=== PATIENT | female | born 1930 | race Caucasian/White ===

== ENCOUNTER 2018-08-23 10:08 | Inpatient (IN) | payer MEDICARE ==
[2018-08-23] MEDS ORDERED: SODIUM CHLORIDE 0.9% 1,000 ML IV ONE (10:26)
--- NOTE | 2018-08-23 10:46 | ED ---
General Adult HPI - General Chief complaint: Fall Stated complaint: fall Source: patient, EMS Mode of arrival: EMS Limitations: altered mental status, physical limitation - History of Present Illness Initial comments: Dictation was produced using [employer] dictation software. please excuse any grammatical, word or spelling errors. Chief Complaint: 87-year-old female presents after being found down. History of Present Illness: Patient is a 87-year-old female brought in by EMS for being found down. Coronary EMS patient was found at home in the family room. She was covered in urine and feces. Patient reports that she fell last night. She states she could not get up because she felt significantly weak. Patient complains of back pain. She has no other complaints at this time. Patient is unsure if she lost consciousness. The ROS documented in this emergency department record has been reviewed and confirmed by me. Those systems with pertinent positive or negative responses have been documented in the HPI. All other systems are other negative and/or noncontributory. - Related Data Home Medications Medication Instructions Recorded Confirmed Acetaminophen with Codeine 1 tab PO QID PRN 08/23/18 08/23/18 [Tylenol w/codeine #4] Cholestyramine (with Sugar) 4 gm PO 5XD 08/23/18 08/23/18 [Cholestyramine Packet] Diphenoxylate HCl/Atropine 2 tab PO Q6H PRN 08/23/18 08/23/18 [Lomotil 2.5-0.025 mg Tablet] Ergocalciferol (Vitamin D2) 50,000 unit PO Q7D 08/23/18 08/23/18 [Vitamin D2] Levothyroxine Sodium [Synthroid] 175 mcg PO DAILY 08/23/18 08/23/18 Losartan Potassium [Cozaar] 12.5 mg PO DAILY 08/23/18 08/23/18 Menthol-Zinc Oxide Oint 1 applic TOPICAL DAILY PRN 08/23/18 08/23/18 [Calmoseptine Oint] Nystatin 100,000 Unit/gm Powd 1 applic TOPICAL BID 08/23/18 08/23/18 [Mycostatin Powder] SILVER sulfADIAZINE CREAM 1 applic TOPICAL BID 08/23/18 08/23/18 [Silvadene Cream] Allergies Allergy/AdvReac Type Severity Reaction Status Date / Time acetaminophen [From Vicodin] AdvReac Unknown Verified 08/23/18 11:08 hydrocodone [From Vicodin] AdvReac Unknown Verified 08/23/18 11:08 Review of Systems ROS Statement: Those systems with pertinent positive or pertinent negative responses have been documented in the HPI. ROS Other: All systems not noted in ROS Statement are negative. Past Medical History History of Any Multi-Drug Resistant Organisms: None Reported Past Psychological History: No Psychological Hx Reported Smoking Status: Never smoker Past Alcohol Use History: None Reported Past Drug Use History: None Reported General Exam - General Exam Comments Initial Comments: PHYSICAL EXAM: General Impression: Alert and oriented x3, not in acute distress HEENT: Normocephalic atraumatic, extra-ocular movements intact, pupils equal and reactive to light bilaterally, mucous membranes moist. Cardiovascular: Heart regular rate and rhythm, S1&S2 audible, no murmurs, rubs or gallops Chest: Lungs clear to auscultation bilaterally, no rhonchi, no wheeze, no rales Abdomen: Bowel sounds present, abdomen soft, non-tender, non-distended, no organomegaly Musculoskeletal: Pulses present and equal in all extremities, no peripheral edema, back pain reproduced with movement of the lower extremities Motor: Power 5/5 bilaterally, no focal deficits noted Neurological: CN II-XII grossly intact, no focal motor or sensory deficits noted Skin: Intact with no visualized rashes Psych: Normal affect and mood Limitations: altered mental status, physical limitation Course Vital Signs 08/23/18 08/23/18 08/23/18 10:22 10:24 10:30 Temperature 98.6 F Pulse Rate 82 Respiratory 18 Rate Blood Pressure 146/57 146/57 O2 Sat by Pulse 99 100 100 Oximetry 08/23/18 08/23/18 08/23/18 11:00 11:30 12:00 Temperature Pulse Rate Respiratory Rate Blood Pressure 132/53 115/44 O2 Sat by Pulse 99 97 Oximetry 08/23/18 08/23/18 08/23/18 13:30 14:00 14:30 Temperature Pulse Rate Respiratory Rate Blood Pressure 125/53 124/52 125/51 O2 Sat by Pulse 100 100 100 Oximetry 08/23/18 15:00 Temperature Pulse Rate 74 Respiratory 16 Rate Blood Pressure 136/58 O2 Sat by Pulse 99 Oximetry Medical Decision Making - Medical Decision Making ED course: 87 year old female found down at home after fall. As upon arrival are within acceptable limits.Return evaluation obtained. CBC unremarkable. Coag panel unremarkable. Blood gas shows acidosis of 77.21 with a bicarb of 18. Metabolic panel shows carbon dioxide of 18, gap of 8. Mild elevation and renal markers. No lactic acidosis. Consistent with non-gap acidosis. Patient denies any vomiting or diarrhea. Thoracic and lumbar spine CT was obtained showing. Complete compression of T12 and L1 of indeterminate age. He is also some posterior wall displacement obtained 3 and 4 mm the spinal canal. Mild disc bulging of the lumbar spine and grade 1 spondylolisthesis. More history was obtained from family. Patient does not have any history of compression fractures. Believe that findings seen on CT represent acute compression fracture. Head and neck CT shows no acute issues. Chest x-ray is unremarkable. Discussed patient case with Elizabeth from orthopedics who is amenable for patient being kept here in our hospital with Dr. Benitez or orthopedic spine surgeon on consult. Dr. Paulino is also agreeable. EKG interpretation: Ventricular rate 80, normal sinus rhythm,. Interval 126, QRS 102, QTc 442. No WA prolongation, no QTC prolongation, no ST or T-wave changes noted. Overall, this EKG is unremarkable - Lab Data Result diagrams: 08/23/18 11:07 08/23/18 11:07 Lab Results 08/23/18 08/23/18 08/23/18 Range/Units 11:07 11:07 11:07 WBC (3.8-10.6) k/uL RBC (3.80-5.40) m/uL Hgb (11.4-16.0) gm/dL Hct (34.0-46.0) % MCV (80.0-100.0) fL MCH (25.0-35.0) pg MCHC (31.0-37.0) g/dL RDW (11.5-15.5) % Plt Count (150-450) k/uL Neutrophils % % Lymphocytes % % Monocytes % % Eosinophils % % Basophils % % Neutrophils # (1.3-7.7) k/uL Lymphocytes # (1.0-4.8) k/uL Monocytes # (0-1.0) k/uL Eosinophils # (0-0.7) k/uL Basophils # (0-0.2) k/uL Hypochromasia PT (9.0-12.0) sec INR (<1.2) APTT (22.0-30.0) sec VBG pH 7.21 L (7.31-7.41) VBG pCO2 47 (37-51) mmHg VBG HCO3 18 L (24-28) mmol/L Sodium (137-145) mmol/L Potassium (3.5-5.1) mmol/L Chloride (98-107) mmol/L Carbon Dioxide (22-30) mmol/L Anion Gap mmol/L BUN (7-17) mg/dL Creatinine (0.52-1.04) mg/dL Est GFR (CKD-EPI)AfAm (>60 ml/min/1.73 sqM) Est GFR (CKD-EPI)NonAf (>60 ml/min/1.73 sqM) Glucose (74-99) mg/dL Plasma Lactic Acid Lc 1.6 (0.7-2.0) mmol/L Calcium (8.4-10.2) mg/dL Total Bilirubin (0.2-1.3) mg/dL AST (14-36) U/L ALT (9-52) U/L Alkaline Phosphatase (38-126) U/L Ammonia 12 (<30) umol/L Creatine Kinase (30-135) U/L Total Creatine Kinase 27 L (30-135) U/L CK-MB (CK-2) 0.6 (0.0-2.4) ng/mL CK-MB (CK-2) Rel Index 2.2 Troponin I <0.012 (0.000-0.034) ng/mL Total Protein (6.3-8.2) g/dL Albumin (3.5-5.0) g/dL Urine Color Urine Appearance (Clear) Urine pH (5.0-8.0) Ur Specific [place] (1.001-1.035) Urine Protein (Negative) Urine Glucose (UA) (Negative) Urine Ketones (Negative) Urine Blood (Negative) Urine Nitrite (Negative) Urine Bilirubin (Negative) Urine Urobilinogen (<2.0) mg/dL Ur Leukocyte Esterase (Negative) Urine RBC (0-5) /hpf Urine WBC (0-5) /hpf Amorphous Sediment (None) /hpf Urine Bacteria (None) /hpf Urine Mucus (None) /hpf Urine Opiates Screen (NotDetected) Ur Oxycodone Screen (NotDetected) Urine Methadone Screen (NotDetected) Ur Propoxyphene Screen (NotDetected) Ur Barbiturates Screen (NotDetected) U Tricyclic Antidepress (NotDetected) Ur Phencyclidine Scrn (NotDetected) Ur Amphetamines Screen (NotDetected) U Methamphetamines Scrn (NotDetected) U Benzodiazepines Scrn (NotDetected) Urine Cocaine Screen (NotDetected) U Marijuana (THC) Screen (NotDetected) 08/23/18 08/23/18 08/23/18 Range/Units 11:07 11:07 11:07 WBC 8.3 (3.8-10.6) k/uL RBC 3.80 (3.80-5.40) m/uL Hgb 11.3 L (11.4-16.0) gm/dL Hct 35.7 (34.0-46.0) % MCV 94.2 (80.0-100.0) fL MCH 29.8 (25.0-35.0) pg MCHC 31.7 (31.0-37.0) g/dL RDW 14.5 (11.5-15.5) % Plt Count 210 (150-450) k/uL Neutrophils % 77 % Lymphocytes % 15 % Monocytes % 5 % Eosinophils % 1 % Basophils % 1 % Neutrophils # 6.4 (1.3-7.7) k/uL Lymphocytes # 1.3 (1.0-4.8) k/uL Monocytes # 0.4 (0-1.0) k/uL Eosinophils # 0.1 (0-0.7) k/uL Basophils # 0.1 (0-0.2) k/uL Hypochromasia Slight PT (9.0-12.0) sec INR (<1.2) APTT (22.0-30.0) sec VBG pH (7.31-7.41) VBG pCO2 (37-51) mmHg VBG HCO3 (24-28) mmol/L Sodium 141 (137-145) mmol/L Potassium 4.7 (3.5-5.1) mmol/L Chloride 115 H (98-107) mmol/L Carbon Dioxide 18 L (22-30) mmol/L Anion Gap 8 mmol/L BUN 23 H (7-17) mg/dL Creatinine 1.81 H (0.52-1.04) mg/dL Est GFR (CKD-EPI)AfAm 29 (>60 ml/min/1.73 sqM) Est GFR (CKD-EPI)NonAf 25 (>60 ml/min/1.73 sqM) Glucose 111 H (74-99) mg/dL Plasma Lactic Acid Lc (0.7-2.0) mmol/L Calcium 8.9 (8.4-10.2) mg/dL Total Bilirubin 0.3 (0.2-1.3) mg/dL AST 39 H (14-36) U/L ALT 35 (9-52) U/L Alkaline Phosphatase 88 (38-126) U/L Ammonia (<30) umol/L Creatine Kinase 28 L (30-135) U/L Total Creatine Kinase (30-135) U/L CK-MB (CK-2) (0.0-2.4) ng/mL CK-MB (CK-2) Rel Index Troponin I (0.000-0.034) ng/mL Total Protein 7.9 (6.3-8.2) g/dL Albumin 3.7 (3.5-5.0) g/dL Urine Color Yellow Urine Appearance Clear (Clear) Urine pH 5.5 (5.0-8.0) Ur Specific [place] 1.013 (1.001-1.035) Urine Protein 1+ H (Negative) Urine Glucose (UA) Negative (Negative) Urine Ketones Negative (Negative) Urine Blood Negative (Negative) Urine Nitrite Negative (Negative) Urine Bilirubin Negative (Negative) Urine Urobilinogen <2.0 (<2.0) mg/dL Ur Leukocyte Esterase Negative (Negative) Urine RBC <1 (0-5) /hpf Urine WBC <1 (0-5) /hpf Amorphous Sediment Occasional H (None) /hpf Urine Bacteria Rare H (None) /hpf Urine Mucus Rare H (None) /hpf Urine Opiates Screen Detected H (NotDetected) Ur Oxycodone Screen Not Detected (NotDetected) Urine Methadone Screen Not Detected (NotDetected) Ur Propoxyphene Screen Not Detected (NotDetected) Ur Barbiturates Screen Not Detected (NotDetected) U Tricyclic Antidepress Not Detected (NotDetected) Ur Phencyclidine Scrn Not Detected (NotDetected) Ur Amphetamines Screen Not Detected (NotDetected) U Methamphetamines Scrn Not Detected (NotDetected) U Benzodiazepines Scrn Not Detected (NotDetected) Urine Cocaine Screen Not Detected (NotDetected) U Marijuana (THC) Screen Not Detected (NotDetected) 08/23/18 Range/Units 11:07 WBC (3.8-10.6) k/uL RBC (3.80-5.40) m/uL Hgb (11.4-16.0) gm/dL Hct (34.0-46.0) % MCV (80.0-100.0) fL MCH (25.0-35.0) pg MCHC (31.0-37.0) g/dL RDW (11.5-15.5) % Plt Count (150-450) k/uL Neutrophils % % Lymphocytes % % Monocytes % % Eosinophils % % Basophils % % Neutrophils # (1.3-7.7) k/uL Lymphocytes # (1.0-4.8) k/uL Monocytes # (0-1.0) k/uL Eosinophils # (0-0.7) k/uL Basophils # (0-0.2) k/uL Hypochromasia PT 12.7 H (9.0-12.0) sec INR 1.2 H (<1.2) APTT 24.8 (22.0-30.0) sec VBG pH (7.31-7.41) VBG pCO2 (37-51) mmHg VBG HCO3 (24-28) mmol/L Sodium (137-145) mmol/L Potassium (3.5-5.1) mmol/L Chloride (98-107) mmol/L Carbon Dioxide (22-30) mmol/L Anion Gap mmol/L BUN (7-17) mg/dL Creatinine (0.52-1.04) mg/dL Est GFR (CKD-EPI)AfAm (>60 ml/min/1.73 sqM) Est GFR (CKD-EPI)NonAf (>60 ml/min/1.73 sqM) Glucose (74-99) mg/dL Plasma Lactic Acid Lc (0.7-2.0) mmol/L Calcium (8.4-10.2) mg/dL Total Bilirubin (0.2-1.3) mg/dL AST (14-36) U/L ALT (9-52) U/L Alkaline Phosphatase (38-126) U/L Ammonia (<30) umol/L Creatine Kinase (30-135) U/L Total Creatine Kinase (30-135) U/L CK-MB (CK-2) (0.0-2.4) ng/mL CK-MB (CK-2) Rel Index Troponin I (0.000-0.034) ng/mL Total Protein (6.3-8.2) g/dL Albumin (3.5-5.0) g/dL Urine Color Urine Appearance (Clear) Urine pH (5.0-8.0) Ur Specific [place] (1.001-1.035) Urine Protein (Negative) Urine Glucose (UA) (Negative) Urine Ketones (Negative) Urine Blood (Negative) Urine Nitrite (Negative) Urine Bilirubin (Negative) Urine Urobilinogen (<2.0) mg/dL Ur Leukocyte Esterase (Negative) Urine RBC (0-5) /hpf Urine WBC (0-5) /hpf Amorphous Sediment (None) /hpf Urine Bacteria (None) /hpf Urine Mucus (None) /hpf Urine Opiates Screen (NotDetected) Ur Oxycodone Screen (NotDetected) Urine Methadone Screen (NotDetected) Ur Propoxyphene Screen (NotDetected) Ur Barbiturates Screen (NotDetected) U Tricyclic Antidepress (NotDetected) Ur Phencyclidine Scrn (NotDetected) Ur Amphetamines Screen (NotDetected) U Methamphetamines Scrn (NotDetected) U Benzodiazepines Scrn (NotDetected) Urine Cocaine Screen (NotDetected) U Marijuana (THC) Screen (NotDetected) Disposition Clinical Impression: Compression fracture Dis[facility]: [facility] Condition: Fair Referrals: Shelby Pascual DO [Primary Care Provider] - 1-2 days Decision Time: 15:29
[2018-08-23 11:40] LABS: Basophils # (A) 0.1 k/uL (0-0.2); Basophils % (A) 1 %; Eosinophils # (A) 0.1 k/uL (0-0.7); Eosinophils % (A) 1 %; HCT 35.7 % (34.0-46.0); HGB 11.3 gm/dL (11.4-16.0); Hypochromasia Slight; Lymphocytes # (A) 1.3 k/uL (1.0-4.8); Lymphocytes % (A) 15 %; MCH 29.8 pg (25.0-35.0); MCHC 31.7 g/dL (31.0-37.0); MCV 94.2 fL (80.0-100.0); Mean Platelet Volume 6.6; Monocytes # (A) 0.4 k/uL (0-1.0); Monocytes % (A) 5 %; Neutrophils # (A) 6.4 k/uL (1.3-7.7); Neutrophils % (A) 77 %; Platelet Count 210 k/uL (150-450); RDW 14.5 % (11.5-15.5); WBC 8.3 k/uL (3.8-10.6)
[2018-08-23 11:47] LABS: INR 1.2 (<1.2); Partial Thromboplastin Time 24.8 sec (22.0-30.0); Prothrombin Time 12.7 sec (9.0-12.0); VBG PH 7.21 (7.31-7.41)
[2018-08-23 11:48] LABS: Amorphous Sediment,Urine Occasional /hpf; Appearance,Urine Clear (Clear); Bacteria,Urine Rare /hpf; Bilirubin,Urine Negative (Negative); Blood,Urine Negative (Negative); Color,Urine Yellow; Glucose,Urine (UA) Negative (Negative); Ketones,Urine Negative (Negative); Leukocyte Esterase,Urine Negative (Negative); Mucus,Urine Rare /hpf; Nitrite,Urine Negative (Negative); PH, Urine 5.5 (5.0-8.0); Protein,Urine 1+ (Negative); RBC,Urine <1 /hpf (0-5); Specific Gravity,Urine 1.013 (1.001-1.035); Urobilinogen,Urine <2.0 mg/dL (<2.0); WBC,Urine <1 /hpf (0-5)
[2018-08-23 11:50] LABS: Lactic Acid, Venous 1.6 mmol/L (0.7-2.0)
[2018-08-23 11:51] LABS: Albumin 3.7 g/dL (3.5-5.0); Calcium 8.9 mg/dL (8.4-10.2); Potassium 4.7 mmol/L (3.5-5.1); Total Bilirubin 0.3 mg/dL (0.2-1.3); Total Protein 7.9 g/dL (6.3-8.2)
[2018-08-23 11:59] LABS: Amphetamine Screen,Urine Not Detected (NotDetected); Barbiturate Screen,Urine Not Detected (NotDetected); Benzodiazepines Screen,Urine Not Detected (NotDetected); Cocaine Screen,Urine Not Detected (NotDetected); Methadone Screen, Urine Not Detected (NotDetected); Opiate Screen,Urine Detected (NotDetected); Oxycodone Screen, Urine Not Detected (NotDetected); Phencyclidine Screen,Urine Not Detected (NotDetected); Tricyclic Antidepressant,Urine Not Detected (NotDetected); Urn Cannabinoid Scrn Not Detected (NotDetected)
[2018-08-23 12:10] LABS: Creatine Kinase 27 U/L (30-135)
--- NOTE | 2018-08-23 12:12 | CT ---
EXAMINATION TYPE: CT brain lópez daugherty DATE OF EXAM: 08/23/2018 COMPARISON: NONE HISTORY: Fall injury with headache and neck pain CT DLP: 1860.1 mGycm. Automated Exposure Control for Dose Reduction was Utilized. TECHNIQUE: CT scan of the head and cervical spine are performed without contrast. FINDINGS: There is no acute intracranial hemorrhage or midline shift identified. Ventricular and thomas lcal prominence is seen. Low-attenuation in deep and periventricular white matter is noted. The glob es are intact and the visualized sinuses are clear. The calvarium is intact. Hyperostosis frontalis i s seen. Cervical spine is visualized in its entirety from C1 through upper thoracic levels and demonstrates g rade 1 retrolisthesis of C4 on C5 without evidence of acute fracture or dislocation. Prevertebral so ft tissue appears within normal limits. The C1-C2 articulation is within normal limits on the metz l images. Vertebral body heights are maintained. Osseous structures are demineralized. There is moder ate disc space narrowing C4-C5 level. There is mild to moderate anterior spurring in the mid cervical spine. Spinal canal is grossly preserved. Review of axial images shows moderate to severe pleural/parenchymal biapical scarring with additional multifocal areas of scarlike opacity throughout the right upper lung. Correlate clinically somewhat small size thyroid gland is seen. Moderate calcified plaque right carotid bulb is present. Mild calci fied plaque left carotid bulb is noted. IMPRESSION: 1. There is no acute fracture or dislocation evident in the cervical spine. 2. No acute intracranial hemorrhage or midline shift is seen.
[2018-08-23 12:22] LABS: Creatine Kinase MB 0.6 ng/mL (0.0-2.4); Troponin I <0.012 ng/mL (0.000-0.034)
--- NOTE | 2018-08-23 12:22 | CT ---
EXAMINATION TYPE: CT thor lumbar spine wo con DATE OF EXAM: 08/23/2018 COMPARISON: CT abdomen pelvis 06/01/2010 HISTORY: Fall, back pain CT DLP: 1860.1 mGycm Automated exposure control for dose reduction was used. TECHNIQUE: Axial images 3 mm thick sections. Reconstructed images in the coronal and sagittal planes. FINDINGS: There is a grade 1 spondylolisthesis of L5 anterior on S1. Disc uncovering is present. Mild canal shayne rowing may be present. Facet hypertrophy is noted at this level. L4-5 has symmetrical disc bulging with moderate anterior thecal sac compression. Facet hypertrophy is present. No spinal canal stenosis is present. L3-4 has mild disc bulging with anterior thecal sac compression. No spinal canal stenosis is present. L2-3 has minimal disc bulging with anterior thecal sac contact. No spinal canal stenosis or neural fo raminal stenosis is present. There is a compression deformity of L1 with approximately 40% loss of anterior vertebral body height. Minimal posterior wall displacement is present estimated at 0.4 cm. AP spinal canal narrowing at 0.9 cm may be present. There is a mild superior endplate compression deformity at T12. Minimal central posterior wall displa cement medially present estimated at 0.3 cm. No AP spinal canal stenosis is present. Mild thecal sac compression is present. Remaining thoracic vertebral levels appear preserved. Disc heights appear preserved. IMPRESSION: 1. SUPERIOR ENDPLATE COMPRESSION DEFORMITIES T12 AND L1 OF INDETERMINATE AGE. THESE ARE INTERVAL FROM 2009. 2. MILD SUPERIOR POSTERIOR WALL DISPLACEMENT BETWEEN 3 AND 4 MM INTO THE SPINAL CANAL WITHOUT CORD CO NTACT OR SPINAL CANAL STENOSIS AT THE L 1 AND T12 LEVELS. 3. DISC BULGING PRESENT L3-4, L4-5, L5-S1. 4. 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
--- NOTE | 2018-08-23 13:29 | XR ---
EXAMINATION TYPE: XR chest 2V DATE OF EXAM: 08/23/2018 COMPARISON: CT thoracic spine today. HISTORY: Fall injury with chest pain. TECHNIQUE: Frontal and lateral views of the chest are obtained. FINDINGS: There is reticular interstitial changes most prominent in the right upper lobe but seen bi laterally. No pleural effusion or pneumothorax is seen bilaterally. The cardiac silhouette size is w ithin normal limits with ectatic and atherosclerotic aorta. The osseous structures are demineralize d. IMPRESSION: Right upper lung reticular interstitial changes favor multifocal chronic fibrosis, corre late with old outside x-ray would be beneficial to confirm.
[2018-08-23] MEDS ORDERED: NALOXONE 0.4 MG/ML 1 ML VIAL IV PRN (15:24)
--- NOTE | 2018-08-23 16:08 | P.HPIM ---
History of Present Illness H&P Date: 08/23/18 Chief Complaint: Fall with compression fracture This is a 87-year-old female patient of Dr. Pascual. Patient presented with complaints of fall. Patient states she was walking to her living room when she fell. Patient is supposed to be using walker which she was not at the time. Patient denies loss of consciousness. Patient states she's started to experience severe back pain. Per EMS report patient was draped in urine and feces upon arrival. Patient denies any recent illness or infection that could' ve precipitated the fall. Patient denies any burning with urination or recent cough or infection. Chest x-ray completed showing right upper lung reticular interstitial changes favor multifocal chronic fibrosis, correlate with old outside x-ray could be beneficial to confirm. CT of head and cervical spine completed showing no acute fracture or dislocation evident cervical spine. No acute intracranial hemorrhage or midline shift is seen. CT of thoracic lumbar spine without contrast completed showing superior endplate compression deformities T12 and L1 of indeterminate age. These are well-formed 2010. Mild superior posterior wall displacement between 3 and 4 mm into the spinal canal without cord contact spinal canal stenosis at the L1 and T12 levels. Disc bulging at L3 to 4, L4 to 5 and L5 to S1. Grade 1 spondylolisthesis of L5 anterior on S1 with disc uncovering. EKG completed showing normal sinus rhythm. Anterior infarct, age undetermined abnormal EKG. Patient states she does have a significant history of back surgeries including isidoro placement with Dr. Benitez. Dr. Benitez has been consulted for orthopedic surgery. Patient also reports a history of GI cancer. Exact characteristics unknown. Patient does state she follows with Dr. Bunn and receives monthly injections but has never received chemotherapy. Patient states she did undergo surgery for her cancer issue. Patient denies any significant cardiac or pulmonary history. UA and urine culture ordered. At this time patient denies chest pain or shortness of breath. Patient denies any nausea vomiting or diarrhea. Patient denies any urinary burning or frequency. Patient is complaining of back discomfort. Family and patient requesting something to eat. Will order diet at this time Review of Systems please refer to HPI otherwise unremarkable Past Medical History History of Any Multi-Drug Resistant Organisms: None Reported Past Psychological History: No Psychological Hx Reported Smoking Status: Never smoker Past Alcohol Use History: None Reported Past Drug Use History: None Reported Medications and Allergies Home Medications Medication Instructions Recorded Confirmed Type Acetaminophen with Codeine 1 tab PO QID PRN 08/23/18 08/23/18 History [Tylenol w/codeine #4] Cholestyramine (with Sugar) 4 gm PO 5XD 08/23/18 08/23/18 History [Cholestyramine Packet] Diphenoxylate HCl/Atropine 2 tab PO Q6H PRN 08/23/18 08/23/18 History [Lomotil 2.5-0.025 mg Tablet] Ergocalciferol (Vitamin D2) 50,000 unit PO Q7D 08/23/18 08/23/18 History [Vitamin D2] Levothyroxine Sodium [Synthroid] 175 mcg PO DAILY 08/23/18 08/23/18 History Losartan Potassium [Cozaar] 12.5 mg PO DAILY 08/23/18 08/23/18 History Menthol-Zinc Oxide Oint 1 applic TOPICAL DAILY PRN 08/23/18 08/23/18 History [Calmoseptine Oint] Nystatin 100,000 Unit/gm Powd 1 applic TOPICAL BID 08/23/18 08/23/18 History [Mycostatin Powder] SILVER sulfADIAZINE CREAM 1 applic TOPICAL BID 08/23/18 08/23/18 History [Silvadene Cream] Allergies Allergy/AdvReac Type Severity Reaction Status Date / Time acetaminophen [From Vicodin] AdvReac Unknown Verified 08/23/18 11:08 hydrocodone [From Vicodin] AdvReac Unknown Verified 08/23/18 11:08 Physical Exam Vitals: Vital Signs Temp Pulse Resp BP Pulse Ox 08/23/18 15:00 74 16 136/58 99 08/23/18 14:30 125/51 100 08/23/18 14:00 124/52 100 08/23/18 13:30 125/53 100 08/23/18 12:00 97 08/23/18 11:30 115/44 08/23/18 11:00 132/53 99 08/23/18 10:30 146/57 100 08/23/18 10:24 98.6 F 82 18 146/57 100 08/23/18 10:22 99 Intake and Output 08/23/18 08/23/18 08/23/18 06:59 14:59 22:59 Other: Weight 63.503 kg Head normocephalic Neck supple Lungs clear to auscultation bilaterally no wheezing or crackles Heart regular rate and rhythm S1-S2, no rub or gallop Abdomen is soft nontender nondistended positive bowel sounds no hepatosplenomegaly Extremities no edema Neuro alert and orientated to 3 Results CBC & Chem 7: 08/23/18 11:07 08/23/18 11:07 Labs: Abnormal Lab Results - Last 24 Hours (Table) 08/23/18 08/23/18 08/23/18 Range/Units 11:07 11:07 11:07 Hgb 11.3 L (11.4-16.0) gm/dL PT (9.0-12.0) sec INR (<1.2) VBG pH 7.21 L (7.31-7.41) VBG HCO3 18 L (24-28) mmol/L Chloride (98-107) mmol/L Carbon Dioxide (22-30) mmol/L BUN (7-17) mg/dL Creatinine (0.52-1.04) mg/dL Glucose (74-99) mg/dL AST (14-36) U/L Creatine Kinase (30-135) U/L Total Creatine Kinase 27 L (30-135) U/L Urine Protein (Negative) Amorphous Sediment (None) /hpf Urine Bacteria (None) /hpf Urine Mucus (None) /hpf Urine Opiates Screen (NotDetected) 08/23/18 08/23/18 08/23/18 Range/Units 11:07 11:07 11:07 Hgb (11.4-16.0) gm/dL PT 12.7 H (9.0-12.0) sec INR 1.2 H (<1.2) VBG pH (7.31-7.41) VBG HCO3 (24-28) mmol/L Chloride 115 H (98-107) mmol/L Carbon Dioxide 18 L (22-30) mmol/L BUN 23 H (7-17) mg/dL Creatinine 1.81 H (0.52-1.04) mg/dL Glucose 111 H (74-99) mg/dL AST 39 H (14-36) U/L Creatine Kinase 28 L (30-135) U/L Total Creatine Kinase (30-135) U/L Urine Protein 1+ H (Negative) Amorphous Sediment Occasional H (None) /hpf Urine Bacteria Rare H (None) /hpf Urine Mucus Rare H (None) /hpf Urine Opiates Screen Detected H (NotDetected) Microbiology - Last 24 Hours (Table) 08/23/18 11:07 Urine Culture - Preliminary Urine,Catheterized Assessment and Plan Assessment: 1. Fall with compression fracture. CT of head and neck completed showing no acute fracture or dislocation evident cervical spine. No acute intracranial hemorrhage or midline shift is seen. Thoracic lumbar CT completed showing superior endplate compression deformities T12 and L1 of indeterminate age. These are interval from 2009. Mild superior posterior wall displacement between 3 and 4 mm into the spinal canal without cord contact or spinal canal stenosis at L1 and T12 levels. Disc bulging present of 3-4, L4 to 5 and L5 to S1. 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 Dr. Benitez has been consulted for orthopedics. 2. History of previous back surgery 3. Acute kidney injury. Creatinine 1.81 and bun 23. Cozaar currently on hold. We'll continue monitor closely 4. History of GI cancer. Exact characteristics unknown. Patient states she follows with Dr. kenney in which she receives monthly injections. 5. Chronic diarrhea. Patient states diarrhea is from her known cancer 6. Hypothyroidism. Continue Synthroid AM CBC and CMP ordered. Analysis and urine culture ordered. Awaiting orthopedic consult Time with Patient: Greater than 30 (Greater than 60% of the total time spent in counseling and coordination of care. I performed an examination of the patient and discussed their management with the Nurse Practitioner. I have reviewed the Nurse Practitioner's notes and agree with the documented findings and plan of care)
[2018-08-23] MEDS: traMADol 50 MG TAB PO SCH ×2 (16:11→23:10)
[2018-08-23] MEDS: SODIUM CHLORIDE 0.9% 1,000 ML IV SCH (16:13)
[2018-08-23] MEDS: MORPHINE SULFATE 2 MG/ML SYRINGE IVP PRN (19:47)
[2018-08-23] MEDS: FAMOTIDINE 20 MG TAB PO SCH (23:10)
[2018-08-24] MEDS: NYSTATIN 100,000 UNIT/GM POWD 15 GM TOPICAL SCH ×3 (00:23→21:22)
[2018-08-24] MEDS: traMADol 50 MG TAB PO SCH ×4 (04:41→21:21)
[2018-08-24] MEDS: LEVOTHYROXINE 75 MCG TAB PO SCH (04:42)
[2018-08-24] MEDS: LEVOTHYROXINE 100 MCG TAB PO SCH (04:42)
[2018-08-24 08:06] LABS: Basophils % (A) 0 %; Eosinophils # (A) 0.1 k/uL (0-0.7); Eosinophils % (A) 2 %; HCT 31.9 % (34.0-46.0); HGB 9.9 gm/dL (11.4-16.0); Hypochromasia Moderate; Lymphocytes # (A) 1.7 k/uL (1.0-4.8); Lymphocytes % (A) 19 %; MCH 29.5 pg (25.0-35.0); MCV 95.3 fL (80.0-100.0); Mean Platelet Volume 6.7; Monocytes # (A) 0.4 k/uL (0-1.0); Monocytes % (A) 5 %; Neutrophils # (A) 6.5 k/uL (1.3-7.7); Neutrophils % (A) 73 %; Platelet Count 189 k/uL (150-450); RBC 3.35 m/uL (3.80-5.40); RDW 14.4 % (11.5-15.5)
[2018-08-24] MEDS: FAMOTIDINE 20 MG TAB PO SCH (08:09)
[2018-08-24 08:14] LABS: Calcium 8.5 mg/dL (8.4-10.2); Potassium 4.5 mmol/L (3.5-5.1); Total Bilirubin 0.4 mg/dL (0.2-1.3); Total Protein 6.8 g/dL (6.3-8.2)
--- NOTE | 2018-08-24 11:24 | P.PN ---
Subjective Progress Note Date: 08/24/18 This is a 87-year-old female patient of Dr. Pascual. Patient presented with complaints of fall. Patient states she was walking to her living room when she fell. Patient is supposed to be using walker which she was not at the time. Patient denies loss of consciousness. Patient states she's started to experience severe back pain. Per EMS report patient was draped in urine and feces upon arrival. Patient denies any recent illness or infection that could' ve precipitated the fall. Patient denies any burning with urination or recent cough or infection. Chest x-ray completed showing right upper lung reticular interstitial changes favor multifocal chronic fibrosis, correlate with old outside x-ray could be beneficial to confirm. CT of head and cervical spine completed showing no acute fracture or dislocation evident cervical spine. No acute intracranial hemorrhage or midline shift is seen. CT of thoracic lumbar spine without contrast completed showing superior endplate compression deformities T12 and L1 of indeterminate age. These are well-formed 2010. Mild superior posterior wall displacement between 3 and 4 mm into the spinal canal without cord contact spinal canal stenosis at the L1 and T12 levels. Disc bulging at L3 to 4, L4 to 5 and L5 to S1. Grade 1 spondylolisthesis of L5 anterior on S1 with disc uncovering. EKG completed showing normal sinus rhythm. Anterior infarct, age undetermined abnormal EKG. Patient states she does have a significant history of back surgeries including isidoro placement with Dr. Benitez. Dr. Benitez has been consulted for orthopedic surgery. Patient also reports a history of GI cancer. Exact characteristics unknown. Patient does state she follows with Dr. Bunn and receives monthly injections but has never received chemotherapy. Patient states she did undergo surgery for her cancer issue. Patient denies any significant cardiac or pulmonary history. UA and urine culture ordered. At this time patient denies chest pain or shortness of breath. Patient denies any nausea vomiting or diarrhea. Patient denies any urinary burning or frequency. Patient is complaining of back discomfort. Family and patient requesting something to eat. Will order diet at this time On 08/24/2018 patient currently awake and alert. Patient is still complaining of some back pain. Denies any nausea vomiting or diarrhea. Patient denies any urinary burning or frequency. Patient denies chest pain or shortness breath. Objective - Vital Signs Vital signs: Vital Signs Temp 97.5 F L 08/24/18 06:27 Pulse 83 08/24/18 06:27 Resp 16 08/24/18 06:27 BP 105/53 08/24/18 06:27 Pulse Ox 98 08/24/18 06:27 Intake & Output 08/23/18 08/24/18 08/24/18 18:59 06:59 18:59 Intake Total 120 300 Balance 120 300 Weight 63.503 kg 63.503 kg Intake: Oral 120 300 Other: # Voids 1 - Exam Head normocephalic Neck supple Lungs clear to auscultation bilaterally no wheezing or crackles Heart regular rate and rhythm S1-S2, no rub or gallop Abdomen is soft nontender nondistended positive bowel sounds no hepatosplenomegaly Extremities no edema Neuro alert and orientated to 3 - Labs CBC & Chem 7: 08/24/18 06:56 08/24/18 06:56 Labs: Abnormal Lab Results - Last 24 Hours (Table) 08/23/18 08/23/18 08/23/18 Range/Units 11:07 11:07 11:07 RBC (3.80-5.40) m/uL Hgb 11.3 L (11.4-16.0) gm/dL Hct (34.0-46.0) % PT (9.0-12.0) sec INR (<1.2) VBG pH 7.21 L (7.31-7.41) VBG HCO3 18 L (24-28) mmol/L Chloride (98-107) mmol/L Carbon Dioxide (22-30) mmol/L BUN (7-17) mg/dL Creatinine (0.52-1.04) mg/dL Glucose (74-99) mg/dL AST (14-36) U/L Creatine Kinase (30-135) U/L Total Creatine Kinase 27 L (30-135) U/L Albumin (3.5-5.0) g/dL Urine Protein (Negative) Amorphous Sediment (None) /hpf Urine Bacteria (None) /hpf Urine Mucus (None) /hpf Urine Opiates Screen (NotDetected) 08/23/18 08/23/18 08/23/18 Range/Units 11:07 11:07 11:07 RBC (3.80-5.40) m/uL Hgb (11.4-16.0) gm/dL Hct (34.0-46.0) % PT 12.7 H (9.0-12.0) sec INR 1.2 H (<1.2) VBG pH (7.31-7.41) VBG HCO3 (24-28) mmol/L Chloride 115 H (98-107) mmol/L Carbon Dioxide 18 L (22-30) mmol/L BUN 23 H (7-17) mg/dL Creatinine 1.81 H (0.52-1.04) mg/dL Glucose 111 H (74-99) mg/dL AST 39 H (14-36) U/L Creatine Kinase 28 L (30-135) U/L Total Creatine Kinase (30-135) U/L Albumin (3.5-5.0) g/dL Urine Protein 1+ H (Negative) Amorphous Sediment Occasional H (None) /hpf Urine Bacteria Rare H (None) /hpf Urine Mucus Rare H (None) /hpf Urine Opiates Screen Detected H (NotDetected) 08/24/18 08/24/18 Range/Units 06:56 06:56 RBC 3.35 L (3.80-5.40) m/uL Hgb 9.9 L (11.4-16.0) gm/dL Hct 31.9 L (34.0-46.0) % PT (9.0-12.0) sec INR (<1.2) VBG pH (7.31-7.41) VBG HCO3 (24-28) mmol/L Chloride 115 H (98-107) mmol/L Carbon Dioxide 20 L (22-30) mmol/L BUN 25 H (7-17) mg/dL Creatinine 1.83 H (0.52-1.04) mg/dL Glucose 102 H (74-99) mg/dL AST (14-36) U/L Creatine Kinase (30-135) U/L Total Creatine Kinase (30-135) U/L Albumin 3.0 L (3.5-5.0) g/dL Urine Protein (Negative) Amorphous Sediment (None) /hpf Urine Bacteria (None) /hpf Urine Mucus (None) /hpf Urine Opiates Screen (NotDetected) Microbiology - Last 24 Hours (Table) 08/23/18 11:07 Urine Culture - Preliminary Urine,Catheterized Assessment and Plan Assessment: 1. Fall with compression fracture. CT of head and neck completed showing no acute fracture or dislocation evident cervical spine. No acute intracranial hemorrhage or midline shift is seen. Thoracic lumbar CT completed showing superior endplate compression deformities T12 and L1 of indeterminate age. These are interval from 2009. Mild superior posterior wall displacement between 3 and 4 mm into the spinal canal without cord contact or spinal canal stenosis at L1 and T12 levels. Disc bulging present of 3-4, L4 to 5 and L5 to S1. 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 Dr. Benitez has been consulted for orthopedics. 2. History of previous back surgery 3. Acute kidney injury. Creatinine 1.81 and bun 23. Cozaar currently on hold. We'll continue to monitor closely 4. History of GI cancer/ bowel tumor. Exact characteristics unknown. Patient states she follows with Dr. Bunn in which she receives monthly injections. 5. Chronic diarrhea. Patient states diarrhea is from her known cancer 6. Hypothyroidism. Continue Synthroid 7. History of asthma no exacerbation at this time 8. History of GERD 9. Short-term memory loss DVT prophylaxis heparin. GI prophylaxis Pepcid AM CBC and CMP ordered. Analysis and urine culture ordered. Awaiting orthopedic consult I performed an examination of the patient and discussed their management with the Nurse Practitioner. I have reviewed the Nurse Practitioner's notes and agree with the documented findings and plan of care
--- NOTE | 2018-08-24 12:28 | P.CNOR ---
History of Present Illness - [facility] Consult date: 08/24/18 Requesting physician: Franky Whittaker Consult reason: fracture (T12 and L1 compression fracture deformities) History of present illness: Patient is a very pleasant 87-year-old female who is seen and examined at bedside after consultation was placed for thoracolumbar pain and evidence of compression fracture deformities at T12 and L1. Patient sustained a fall at home and was found by her . Since that time she's had significant difficulty with ambulation and movement of her thoracolumbar spine. She states her pain is controlled at rest. Her pain is exacerbated with movements of her spine. She denies any specific lower extremity weakness or radiculopathy bilaterally. She has not been fitted with a brace. She has been seen and examined outpatient setting approximately a month and a half ago by Dr. Benitez for back pain and states there was not evidence of fracture at that time. She does have a history of X-Stop placement surgically at her lumbar spine. She continues to be seen and examined by medicine. Patient has a past medical history including GI cancer and follows with Dr. Bunn. 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 per pt's spouse pt has problems with short term memory, has had pne vaccine after age 67 play writer unable to verify date at time of this admit-please call dr cano in am to verify History of Any Multi-Drug Resistant Organisms: None Reported Past Surgical History: Back Surgery, Bladder Surgery, Bowel Resection, Cholecystectomy, Hysterectomy Additional Past Surgical History / Comment(s): fish cataracts, egd, colonoscopy, rotator cuff sx, cystocele/rectocele Past Anesthesia/Blood Transfusion Reactions: Motion Sickness Additional Past Anesthesia/Blood Transfusion Reaction / Comm: past blood transfusion -"no known reasction" Smoking Status: Never smoker - Past Family History Mother Family Medical History: Diabetes Mellitus Father Family Medical History: Cancer, Prostate Disorder Additional Family Medical History / Comment(s): prostate cancer Medications and Allergies Home Medications Medication Instructions Recorded Confirmed Type Acetaminophen with Codeine 1 tab PO QID PRN 08/23/18 08/23/18 History [Tylenol w/codeine #4] Cholestyramine (with Sugar) 4 gm PO 5XD 08/23/18 08/23/18 History [Cholestyramine Packet] Diphenoxylate HCl/Atropine 2 tab PO Q6H PRN 08/23/18 08/23/18 History [Lomotil 2.5-0.025 mg Tablet] Ergocalciferol (Vitamin D2) 50,000 unit PO Q7D 08/23/18 08/23/18 History [Vitamin D2] Levothyroxine Sodium [Synthroid] 175 mcg PO DAILY 08/23/18 08/23/18 History Losartan Potassium [Cozaar] 12.5 mg PO DAILY 08/23/18 08/23/18 History Menthol-Zinc Oxide Oint 1 applic TOPICAL DAILY PRN 08/23/18 08/23/18 History [Calmoseptine Oint] Nystatin 100,000 Unit/gm Powd 1 applic TOPICAL BID 08/23/18 08/23/18 History [Mycostatin Powder] SILVER sulfADIAZINE CREAM 1 applic TOPICAL BID 08/23/18 08/23/18 History [Silvadene Cream] Allergies Allergy/AdvReac Type Severity Reaction Status Date / Time acetaminophen [From Vicodin] AdvReac Unknown Verified 08/23/18 11:08 hydrocodone [From Vicodin] AdvReac Unknown Verified 08/23/18 11:08 Physical Examination Physical exam: Patient is awake, alert, and oriented 3 Vital signs stable Good chest excursion with deep inspiration and expiration Abdomen soft nontender Examination of lumbar spine reveals skin is intact with no abrasions, lacerations, or bruises; no erythema, purulence or signs of infection Significant pain along the midline of the spine at approximately the thoracolumbar junction Dorsiflexion, plantarflexion, and extensor hallucis longus positive sustained bilaterally Lower extremity strength adequate throughout range of motion bilaterally No lower extremity hyperreflexia bilaterally Straight leg test negative bilateral lower extremities Negative Lasegue's test bilaterally No signs or symptoms of DVT; no calf pain No pain with internal and external rotation of the hips bilaterally Neurovascularly intact Results Pertinent studies: CT of the thoracic and lumbar spines: T12 superior endplate compression with approximately 10% to 15% height loss; L1 compression fracture deformity with approximately 40% height loss; L3-4 disc bulge L4-5 evidence of previous surgical intervention in which hardware appears in good alignment and position; L5-S1 spondylolisthesis and disc bulge CT of the brain and cervical spine: C4-5 degenerative disc disease and retrolisthesis; C5-6 anterior osteophytic spurring no evidence of acute fracture within the cervical spine; no evidence of acute intracranial hemorrhage or midline shift - Labs Labs: Abnormal Lab Results - Last 24 Hours (Table) 08/24/18 08/24/18 Range/Units 06:56 06:56 RBC 3.35 L (3.80-5.40) m/uL Hgb 9.9 L (11.4-16.0) gm/dL Hct 31.9 L (34.0-46.0) % Chloride 115 H (98-107) mmol/L Carbon Dioxide 20 L (22-30) mmol/L BUN 25 H (7-17) mg/dL Creatinine 1.83 H (0.52-1.04) mg/dL Glucose 102 H (74-99) mg/dL Albumin 3.0 L (3.5-5.0) g/dL Microbiology - Last 24 Hours (Table) 08/23/18 11:07 Urine Culture - Preliminary Urine,Catheterized H & H 08/23/18 08/24/18 Range/Units 11:07 06:56 Hgb 11.3 L 9.9 L (11.4-16.0) gm/dL Hct 35.7 31.9 L (34.0-46.0) % Coagulation 08/23/18 Range/Units 11:07 INR 1.2 H (<1.2) Result Diagrams: 08/24/18 06:56 08/24/18 06:56 Assessment and Plan Assessment: Assessment: Acute traumatic T12 and L1 compression fracture deformity status post fall Intractable thoracolumbar pain Inability to ambulate due to pain History his previous lumbar surgical intervention at L4-5 in which hardware appears to be in good alignment and position History of GI cancer (1) Traumatic compression fracture of T12 thoracic vertebra Current Visit: Yes Status: Acute Code(s): S22.080A - WEDGE COMPRESSION FRACTURE OF T11-T12 VERTEBRA, INIT SNOMED Code(s): 305871511 (2) Traumatic compression fracture of L1 lumbar vertebra Current Visit: Yes Status: Acute Code(s): S32.010A - WEDGE COMPRESSION FRACTURE OF FIRST LUMBAR VERTEBRA, INIT SNOMED Code(s): 367174256 (3) Thoracolumbar back pain Current Visit: Yes Status: Acute Code(s): M54.5 - LOW BACK PAIN; M54.6 - PAIN IN THORACIC SPINE SNOMED Code(s): 704712458 (4) Unable to ambulate Current Visit: Yes Status: Acute Code(s): R26.2 - DIFFICULTY IN WALKING, NOT ELSEWHERE CLASSIFIED SNOMED Code(s): 654509986 (5) History of lumbar surgery Current Visit: Yes Status: Acute Code(s): Z98.890 - OTHER SPECIFIED POSTPROCEDURAL STATES SNOMED Code(s): 562680518 Plan: Plan: 1. After reviewing of imaging, physical examination of the patient, and further discussion with the patient and her , we will plan to continue with conservative treatment at this time. She does have evidence of compression fracture deformities at T12 and L1 in which her pain is acute status post fall. She does have history of previous surgical intervention in her lumbar spine. At this time, we'll plan for bracing. A prescription for a Spinomed TLSO has been written, signed, and provided to case management. Case management plan to obtain this brace today if available. Once this brace has been delivered and fitted appropriately, patient will be clear for discharge from orthopedic spine standpoint. Patient should wear this brace while sitting upright at greater than 45, during ambulation, during increase activities, and while working with physical therapy. Brace does not have to worn while lying in bed or while bathing. 2. Patient will continue be seen again by medicine who may plan for the patient to be discharged as early as today, 08/25/2018 3. Continue pain control medications as prescribed 4. Following discharge, patient may follow-up with Romain Bill PA-C or Dr. Gabino Benitez at [facility] in approximately 2-3 weeks for further evaluation 5. Patient has been discussed in detail with Dr. Gabino Benitez and he agrees with this plan Time with Patient: Less than 30
[2018-08-24] MEDS: SODIUM CHLORIDE 0.9% 1,000 ML IV SCH (13:11)
[2018-08-24] MEDS: HEPARIN SODIUM,PORCINE 5,000 UNIT/ML 1 ML VIAL SQ SCH (21:20)
[2018-08-25] MEDS: traMADol 50 MG TAB PO SCH ×4 (04:42→23:00)
[2018-08-25] MEDS: LEVOTHYROXINE 100 MCG TAB PO SCH (06:17)
[2018-08-25] MEDS: LEVOTHYROXINE 75 MCG TAB PO SCH (06:17)
[2018-08-25 07:31] LABS: Albumin 3.1 g/dL (3.5-5.0); Calcium 8.4 mg/dL (8.4-10.2); Potassium 4.2 mmol/L (3.5-5.1); Total Bilirubin 0.5 mg/dL (0.2-1.3); Total Protein 6.9 g/dL (6.3-8.2)
[2018-08-25 07:34] LABS: Basophils % (A) 0 %; Eosinophils # (A) 0.2 k/uL (0-0.7); Eosinophils % (A) 3 %; HCT 30.5 % (34.0-46.0); HGB 9.5 gm/dL (11.4-16.0); Hypochromasia Slight; Lymphocytes # (A) 1.4 k/uL (1.0-4.8); Lymphocytes % (A) 18 %; MCH 29.3 pg (25.0-35.0); MCHC 31.3 g/dL (31.0-37.0); MCV 93.8 fL (80.0-100.0); Mean Platelet Volume 6.9; Monocytes # (A) 0.4 k/uL (0-1.0); Monocytes % (A) 5 %; Neutrophils # (A) 5.7 k/uL (1.3-7.7); Neutrophils % (A) 73 %; Platelet Count 203 k/uL (150-450); RBC 3.25 m/uL (3.80-5.40); RDW 14.3 % (11.5-15.5); WBC 7.9 k/uL (3.8-10.6)
[2018-08-25] MEDS: HEPARIN SODIUM,PORCINE 5,000 UNIT/ML 1 ML VIAL SQ SCH ×2 (07:57→20:34)
[2018-08-25] MEDS: FAMOTIDINE 20 MG TAB PO SCH (07:58)
[2018-08-25] MEDS: MORPHINE SULFATE 2 MG/ML SYRINGE IVP PRN (07:58)
[2018-08-25] MEDS: SODIUM CHLORIDE 0.9% 1,000 ML IV SCH ×2 (08:03→13:34)
--- NOTE | 2018-08-25 11:22 | P.PN ---
Subjective Progress Note Date: 08/25/18 This is a 87-year-old female patient of Dr. Pascual. Patient presented with complaints of fall. Patient states she was walking to her living room when she fell. Patient is supposed to be using walker which she was not at the time. Patient denies loss of consciousness. Patient states she's started to experience severe back pain. Per EMS report patient was draped in urine and feces upon arrival. Patient denies any recent illness or infection that could' ve precipitated the fall. Patient denies any burning with urination or recent cough or infection. Chest x-ray completed showing right upper lung reticular interstitial changes favor multifocal chronic fibrosis, correlate with old outside x-ray could be beneficial to confirm. CT of head and cervical spine completed showing no acute fracture or dislocation evident cervical spine. No acute intracranial hemorrhage or midline shift is seen. CT of thoracic lumbar spine without contrast completed showing superior endplate compression deformities T12 and L1 of indeterminate age. These are well-formed 2010. Mild superior posterior wall displacement between 3 and 4 mm into the spinal canal without cord contact spinal canal stenosis at the L1 and T12 levels. Disc bulging at L3 to 4, L4 to 5 and L5 to S1. Grade 1 spondylolisthesis of L5 anterior on S1 with disc uncovering. EKG completed showing normal sinus rhythm. Anterior infarct, age undetermined abnormal EKG. Patient states she does have a significant history of back surgeries including isidoro placement with Dr. Benitez. Dr. Benitez has been consulted for orthopedic surgery. Patient also reports a history of GI cancer. Exact characteristics unknown. Patient does state she follows with Dr. Bunn and receives monthly injections but has never received chemotherapy. Patient states she did undergo surgery for her cancer issue. Patient denies any significant cardiac or pulmonary history. UA and urine culture ordered. At this time patient denies chest pain or shortness of breath. Patient denies any nausea vomiting or diarrhea. Patient denies any urinary burning or frequency. Patient is complaining of back discomfort. Family and patient requesting something to eat. Will order diet at this time On 08/24/2018 patient currently awake and alert. Patient is still complaining of some back pain. Denies any nausea vomiting or diarrhea. Patient denies any urinary burning or frequency. Patient denies chest pain or shortness breath. On 08/25/2018 patient is alert and oriented in no apparent distress she is still complaining of pain in the back she is complaining of severe difficulty sitting up and standing up, otherwise she denies any complaints there is no fever or chills no headache or dizziness no chest pain no shortness of breath no cough no nausea or vomiting no abdominal pain no diarrhea and no urinary symptoms Objective - Vital Signs Vital signs: Vital Signs Temp 98.1 F 08/25/18 05:00 Pulse 84 08/25/18 05:00 Resp 16 08/25/18 05:00 BP 130/55 08/25/18 05:00 Pulse Ox 94 L 08/25/18 05:00 Intake & Output 08/24/18 08/25/18 08/25/18 18:59 06:59 18:59 Intake Total 550 Balance 550 Intake: Intake, IV Titration 550 Amount Sodium Chloride 0.9% 1, 550 000 ml @ 50 mls/hr IV . Q20H [facility] Rx#:[id number] Other: Voiding Method Incontinent Incontinent Incontinent # Voids 2 # Bowel Movements 3 - Exam Head normocephalic Neck supple Lungs clear to auscultation bilaterally no wheezing or crackles Heart regular rate and rhythm S1-S2, no rub or gallop Abdomen is soft nontender nondistended positive bowel sounds no hepatosplenomegaly Extremities no edema Neuro alert and orientated to 3 - Labs CBC & Chem 7: 08/25/18 06:45 08/25/18 06:45 Labs: Abnormal Lab Results - Last 24 Hours (Table) 08/25/18 08/25/18 Range/Units 06:45 06:45 RBC 3.25 L (3.80-5.40) m/uL Hgb 9.5 L (11.4-16.0) gm/dL Hct 30.5 L (34.0-46.0) % Chloride 113 H (98-107) mmol/L Carbon Dioxide 20 L (22-30) mmol/L BUN 22 H (7-17) mg/dL Creatinine 1.66 H (0.52-1.04) mg/dL Albumin 3.1 L (3.5-5.0) g/dL Microbiology - Last 24 Hours (Table) 08/23/18 11:07 Urine Culture - Final Urine,Catheterized Assessment and Plan Plan: 1. Fall with compression fracture. CT of head and neck completed showing no acute fracture or dislocation evident cervical spine. No acute intracranial hemorrhage or midline shift is seen. Thoracic lumbar CT completed showing superior endplate compression deformities T12 and L1 of indeterminate age. These are interval from 2009. Mild superior posterior wall displacement between 3 and 4 mm into the spinal canal without cord contact or spinal canal stenosis at L1 and T12 levels. Disc bulging present of 3-4, L4 to 5 and L5 to S1. 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 Dr. Benitez has been consulted for orthopedics. 2. Acute renal failure, improving creatinine is down from 1.83-1.66 continue with IV fluid 3. 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 Exact characteristics unknown. Patient states she follows with Dr. Bunn in which she receives monthly injections. 5. Chronic diarrhea. Patient states diarrhea is from her known cancer 6. Hypothyroidism. Continue Synthroid 7. History of asthma no exacerbation at this time 8. History of GERD 9. Short-term memory loss 10. Physical debility patient is having significant difficulty sitting up and standing up, physical therapy following patient may need to be transferred to a rehab unit if not improving DVT prophylaxis heparin. GI prophylaxis Pepcid
[2018-08-25] MEDS: NYSTATIN 100,000 UNIT/GM POWD 15 GM TOPICAL SCH ×2 (13:13→20:34)
[2018-08-25] MEDS: CHOLESTYRAMINE (WITH SUGAR) 4 GM PACKET PO SCH ×3 (13:35→23:01)
[2018-08-26] MEDS: traMADol 50 MG TAB PO SCH ×4 (04:49→21:33)
[2018-08-26] MEDS: LEVOTHYROXINE 100 MCG TAB PO SCH (06:01)
[2018-08-26] MEDS: LEVOTHYROXINE 75 MCG TAB PO SCH (06:02)
[2018-08-26] MEDS: NYSTATIN 100,000 UNIT/GM POWD 15 GM TOPICAL SCH ×2 (09:00→21:34)
[2018-08-26] MEDS: DIPHENOX-ATROP 2.5-0.025 MG 1 EACH TAB PO PRN ×2 (09:12→21:33)
[2018-08-26] MEDS: CHOLESTYRAMINE (WITH SUGAR) 4 GM PACKET PO SCH ×4 (09:12→21:37)
[2018-08-26] MEDS: FAMOTIDINE 20 MG TAB PO SCH (09:13)
[2018-08-26] MEDS: HEPARIN SODIUM,PORCINE 5,000 UNIT/ML 1 ML VIAL SQ SCH ×2 (09:20→21:33)
[2018-08-26 10:08] LABS: Albumin 3.2 g/dL (3.5-5.0); Calcium 8.7 mg/dL (8.4-10.2); Potassium 3.4 mmol/L (3.5-5.1); Total Bilirubin 0.7 mg/dL (0.2-1.3); Total Protein 7.3 g/dL (6.3-8.2)
[2018-08-26 10:15] LABS: Basophils % (A) 1 %; Eosinophils # (A) 0.2 k/uL (0-0.7); Eosinophils % (A) 3 %; HCT 33.8 % (34.0-46.0); HGB 10.2 gm/dL (11.4-16.0); Hypochromasia Slight; Lymphocytes # (A) 1.8 k/uL (1.0-4.8); Lymphocytes % (A) 20 %; MCH 28.7 pg (25.0-35.0); MCHC 30.1 g/dL (31.0-37.0); MCV 95.4 fL (80.0-100.0); Mean Platelet Volume 7.5; Monocytes # (A) 0.4 k/uL (0-1.0); Monocytes % (A) 5 %; Neutrophils # (A) 6.4 k/uL (1.3-7.7); Neutrophils % (A) 71 %; Platelet Count 243 k/uL (150-450); RBC 3.54 m/uL (3.80-5.40); RDW 14.4 % (11.5-15.5)
--- NOTE | 2018-08-26 11:54 | P.PN ---
Subjective Progress Note Date: 08/26/18 This is a 87-year-old female patient of Dr. Pascual. Patient presented with complaints of fall. Patient states she was walking to her living room when she fell. Patient is supposed to be using walker which she was not at the time. Patient denies loss of consciousness. Patient states she's started to experience severe back pain. Per EMS report patient was draped in urine and feces upon arrival. Patient denies any recent illness or infection that could' ve precipitated the fall. Patient denies any burning with urination or recent cough or infection. Chest x-ray completed showing right upper lung reticular interstitial changes favor multifocal chronic fibrosis, correlate with old outside x-ray could be beneficial to confirm. CT of head and cervical spine completed showing no acute fracture or dislocation evident cervical spine. No acute intracranial hemorrhage or midline shift is seen. CT of thoracic lumbar spine without contrast completed showing superior endplate compression deformities T12 and L1 of indeterminate age. These are well-formed 2010. Mild superior posterior wall displacement between 3 and 4 mm into the spinal canal without cord contact spinal canal stenosis at the L1 and T12 levels. Disc bulging at L3 to 4, L4 to 5 and L5 to S1. Grade 1 spondylolisthesis of L5 anterior on S1 with disc uncovering. EKG completed showing normal sinus rhythm. Anterior infarct, age undetermined abnormal EKG. Patient states she does have a significant history of back surgeries including isidoro placement with Dr. Benitez. Dr. Benitez has been consulted for orthopedic surgery. Patient also reports a history of GI cancer. Exact characteristics unknown. Patient does state she follows with Dr. Bunn and receives monthly injections but has never received chemotherapy. Patient states she did undergo surgery for her cancer issue. Patient denies any significant cardiac or pulmonary history. UA and urine culture ordered. At this time patient denies chest pain or shortness of breath. Patient denies any nausea vomiting or diarrhea. Patient denies any urinary burning or frequency. Patient is complaining of back discomfort. Family and patient requesting something to eat. Will order diet at this time On 08/24/2018 patient currently awake and alert. Patient is still complaining of some back pain. Denies any nausea vomiting or diarrhea. Patient denies any urinary burning or frequency. Patient denies chest pain or shortness breath. On 08/25/2018 patient is alert and oriented in no apparent distress she is still complaining of pain in the back she is complaining of severe difficulty sitting up and standing up, otherwise she denies any complaints there is no fever or chills no headache or dizziness no chest pain no shortness of breath no cough no nausea or vomiting no abdominal pain no diarrhea and no urinary symptoms On 08/26/2018 patient was seen and examined on the medical floor she is laying in bed she is still complaining of severe back pain, yesterday she had an episode of presyncope, she tried to get to the bathroom, and almost passed out blood pressure was low at 85/40, IV fluid was increased to 75 mL an hour. Today patient is alert and oriented she is complaining of back pain and denies any other complaints at this time there is no fever or chills no headache or dizziness no chest pain no shortness of breath no cough no nausea or vomiting no abdominal pain no diarrhea and no urinary symptoms Objective - Vital Signs Vital signs: Vital Signs Temp 98 F 08/26/18 05:00 Pulse 89 08/26/18 05:00 Resp 16 08/26/18 05:00 BP 122/92 08/26/18 05:00 Pulse Ox 95 08/26/18 05:00 Intake & Output 08/25/18 08/26/18 08/26/18 18:59 06:59 18:59 Other: Voiding Method Incontinent Incontinent # Voids 4 3 # Bowel Movements 3 2 - Exam Head normocephalic Neck supple Lungs clear to auscultation bilaterally no wheezing or crackles Heart regular rate and rhythm S1-S2, no rub or gallop Abdomen is soft nontender nondistended positive bowel sounds no hepatosplenomegaly Extremities no edema Neuro alert and orientated to 3 - Labs CBC & Chem 7: 08/26/18 09:20 08/26/18 09:20 Labs: Abnormal Lab Results - Last 24 Hours (Table) 08/26/18 08/26/18 Range/Units 09:20 09:20 RBC 3.54 L (3.80-5.40) m/uL Hgb 10.2 L (11.4-16.0) gm/dL Hct 33.8 L (34.0-46.0) % MCHC 30.1 L (31.0-37.0) g/dL Potassium 3.4 L (3.5-5.1) mmol/L Chloride 114 H (98-107) mmol/L Carbon Dioxide 18 L (22-30) mmol/L BUN 19 H (7-17) mg/dL Creatinine 1.58 H (0.52-1.04) mg/dL Glucose 107 H (74-99) mg/dL Albumin 3.2 L (3.5-5.0) g/dL Microbiology - Last 24 Hours (Table) 08/23/18 11:07 Urine Culture - Final Urine,Catheterized Assessment and Plan Plan: 1. Fall with compression fracture. CT of head and neck completed showing no acute fracture or dislocation evident cervical spine. No acute intracranial hemorrhage or midline shift is seen. Thoracic lumbar CT completed showing superior endplate compression deformities T12 and L1 of indeterminate age. These are interval from 2009. Mild superior posterior wall displacement between 3 and 4 mm into the spinal canal without cord contact or spinal canal stenosis at L1 and T12 levels. Disc bulging present of 3-4, L4 to 5 and L5 to S1. 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 Dr. Benitez has been consulted for orthopedics. 2. Acute renal failure, improving creatinine is down from 1.83-1.58 continue with IV fluid 3. 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 Exact characteristics unknown. Patient states she follows with Dr. Bunn in which she receives monthly injections. 5. Chronic diarrhea. Patient states diarrhea is from her known cancer 6. Hypothyroidism. Continue Synthroid 7. History of asthma no exacerbation at this time 8. History of GERD 9. Short-term memory loss 10. Physical debility patient is having significant difficulty sitting up and standing up, physical therapy following patient may need to be transferred to a rehab unit if not improving 11. Episode of presyncope with check echocardiogram and carotid Doppler will follow in a.m. DVT prophylaxis heparin. GI prophylaxis Pepcid
--- NOTE | 2018-08-26 13:51 | US ---
EXAMINATION TYPE: US carotid duplex BILAT DATE OF EXAM: 08/26/2018 COMPARISON: NONE CLINICAL HISTORY: presyncope. EXAM MEASUREMENTS: RIGHT: Peak Systolic Velocity (PSV) cm/sec ----- Right CCA: 81.9 ----- Right ICA: 93.5 ----- Right ECA: 76.4 ICA/CCA ratio: 1.1 RIGHT: End Diastole cm/sec ----- Right CCA: 0.0 ----- Right ICA: 16.6 ----- Right ECA: 0.0 LEFT: Peak Systolic Velocity (PSV) cm/sec ----- Left CCA: 71.1 ----- Left ICA: 78.5 ----- Left ECA: 69.2 ICA/CCA ratio: 1.1 LEFT: End Diastole cm/sec ----- Left CCA: 0.0 ----- Left ICA: 11.3 ----- Left ECA: 0.0 VERTEBRALS (direction of flow): Right Vertebral: Antegrade Left Vertebral: Antegrade No elevated velocities, no significant stenosis. IMPRESSION: I DO NOT SEE EVIDENCE OF A HEMODYNAMICALLY SIGNIFICANT STENOSIS IN EITHER CAROTID SYSTEM. Criteria for Assigning % of Stenosis / Diameter reduction (Estimation based on the indirect measurements of the internal carotid artery velocities (ICA PSV). 1. Normal (no stenosis)=ICA PSV < 125 cm/s: ratio < 2.0: ICA EDV<40 cm/s. 2. Less than 50% stenosis=ICA PSV < 125 cm/s: ratio < 2.0: ICA EDV<40 cm/s. 3. 50 to 69% stenosis=ICA PSV of 125 to 230 cm/s: ration 2.0 ? 4.0: ICA EDV 40-100 cm/s. 4. Greater than 70% stenosis to near occlusion= ICA PSV > 230 cm/s: ratio > 4.0: ICA EDV > 100 cm/s. 5. Near occlusion= ICA PSV velocities may be low or undetectable: variable ratio and ICA EDV. 6. Total occlusion=unable to detect flow.
[2018-08-26] MEDS: SODIUM CHLORIDE 0.9% 1,000 ML IV SCH (17:19)
[2018-08-27] MEDS: traMADol 50 MG TAB PO SCH ×4 (03:47→21:43)
[2018-08-27] MEDS: LEVOTHYROXINE 75 MCG TAB PO SCH (05:29)
[2018-08-27] MEDS: LEVOTHYROXINE 100 MCG TAB PO SCH (05:30)
--- NOTE | 2018-08-27 06:37 | P.CONS ---
History of Present Illness - Chief Complaint Back pain - History of Present Illness I had the opportunity to see patient for inpatient rehab consultation with regard to back pain. She was admitted to [facility] August 23 history of fall at home and back pain. Thoracolumbar CT demonstrated compression T12 and L1. Chest x-ray with right upper lobe atelectasis versus fibrosis. Head CT negative , age-related change. Carotid Doppler negative. Seen in consultation by Dr. Benitez who prescribed TLSO. PT reports two-person maximal assistance for bed mobility and 2 person minimal assistance for transfers. OT prescribed. Previous functional history as elicited from patient: 72-year-old (actually 87) right-handed white female who initially reported that she is and later that she is . Lives in one floor home. Retired. Describes does the cooking and laundry and driving patient describes she can driving as well as does a bath. Assistive device for gait. Review of Systems Review of systems: ENT: Denies sneezes or discharge. Eyes: Denies discharge or photophobia. Cardiac: Denies chest pain or palpitation. Pulmonary: Denies cough or shortness of breath. Breast: Denies discharge or lumps. Gastrointestinal: Denies nausea, emesis, constipation, diarrhea. Genitourinary: Denies discharge or frequency. Musculoskeletal: Back pain with any movement. Neurologic: Denies motor or sensory change. Endocrine: Denies shakes or sweats. Oncology: Denies cancers. Dermatologic: Denies rash, itching, pruritus. ALLERGY/immunology: Denies sneezes, rashes. 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 per pt's spouse pt has problems with short term memory, has had pne vaccine after age 67 account underwriter unable to verify date at time of this admit-please call dr cano in am to verify History of Any Multi-Drug Resistant Organisms: None Reported Past Surgical History: Back Surgery, Bladder Surgery, Bowel Resection, Cholecystectomy, Hysterectomy Additional Past Surgical History / Comment(s): fish cataracts, egd, colonoscopy, rotator cuff sx, cystocele/rectocele Past Anesthesia/Blood Transfusion Reactions: Motion Sickness Additional Past Anesthesia/Blood Transfusion Reaction / Comm: past blood transfusion -"no known reasction" Smoking Status: Never smoker - Past Family History Mother Family Medical History: Diabetes Mellitus Father Family Medical History: Cancer, Prostate Disorder Additional Family Medical History / Comment(s): prostate cancer Medications and Allergies Home Medications Medication Instructions Recorded Confirmed Type Acetaminophen with Codeine 1 tab PO QID PRN 08/23/18 08/23/18 History [Tylenol w/codeine #4] Cholestyramine (with Sugar) 4 gm PO 5XD 08/23/18 08/23/18 History [Cholestyramine Packet] Diphenoxylate HCl/Atropine 2 tab PO Q6H PRN 08/23/18 08/23/18 History [Lomotil 2.5-0.025 mg Tablet] Ergocalciferol (Vitamin D2) 50,000 unit PO Q7D 08/23/18 08/23/18 History [Vitamin D2] Levothyroxine Sodium [Synthroid] 175 mcg PO DAILY 08/23/18 08/23/18 History Losartan Potassium [Cozaar] 12.5 mg PO DAILY 08/23/18 08/23/18 History Menthol-Zinc Oxide Oint 1 applic TOPICAL DAILY PRN 08/23/18 08/23/18 History [Calmoseptine Oint] Nystatin 100,000 Unit/gm Powd 1 applic TOPICAL BID 08/23/18 08/23/18 History [Mycostatin Powder] SILVER sulfADIAZINE CREAM 1 applic TOPICAL BID 08/23/18 08/23/18 History [Silvadene Cream] Allergies Allergy/AdvReac Type Severity Reaction Status Date / Time acetaminophen [From Vicodin] AdvReac Unknown Verified 08/23/18 11:08 hydrocodone [From Vicodin] AdvReac Unknown Verified 08/23/18 11:08 Physical Exam Vitals: Vital Signs Temp Pulse Resp BP BP Pulse Ox 08/27/18 05:00 98.6 F 89 16 135/74 96 08/26/18 23:26 16 08/26/18 21:00 98.1 F 95 16 154/63 97 08/26/18 17:40 98.3 F 83 16 143/65 95 Intake and Output 08/26/18 08/26/18 08/27/18 14:59 22:59 06:59 Intake Total 200 540 720 Balance 200 540 720 Intake: Intake, IV Titration 300 600 Amount Sodium Chloride 0.9% 1, 300 600 000 ml @ 75 mls/hr IV . [id number] [facility] Rx#:[id number] Oral 200 240 120 Other: Voiding Method Incontinent Incontinent Incontinent # Voids 2 1 1 # Bowel Movements 1 Weight 63.503 kg Skin: Atrophic, intact. General: Medium build and comfortable appearance when not asked to move. Head: Normocephalic, atraumatic. Eyes: Symmetric. Pupils equal round. Ears: Symmetric. Hearing within normal limits. Mouth: Clear. Neck: Supple. Carotid without bruit. Cardiac: Regular rate and rhythm. Lungs: Clear anteriorly and posteriorly. Abdomen: Soft active nontender. Extremities: Normal tone. Neurological: Mental status: Alert, cooperative, pleasant. Cranial nerves: Symmetric facial tone and trapezius. Motor: Active movement all 4 limbs but poor, especially legs, due to back pain produced. Sensation: Intact throughout. DTRs: Symmetric and equal throughout. Mobility: Requires maximal assistance for bed mobility. Results CBC & Chem 7: 08/26/18 09:20 08/26/18 09:20 Labs: Abnormal Lab Results - Last 24 Hours (Table) 08/26/18 08/26/18 Range/Units 09:20 09:20 RBC 3.54 L (3.80-5.40) m/uL Hgb 10.2 L (11.4-16.0) gm/dL Hct 33.8 L (34.0-46.0) % MCHC 30.1 L (31.0-37.0) g/dL Potassium 3.4 L (3.5-5.1) mmol/L Chloride 114 H (98-107) mmol/L Carbon Dioxide 18 L (22-30) mmol/L BUN 19 H (7-17) mg/dL Creatinine 1.58 H (0.52-1.04) mg/dL Glucose 107 H (74-99) mg/dL Albumin 3.2 L (3.5-5.0) g/dL Assessment and Plan (1) Traumatic compression fracture of L1 lumbar vertebra Current Visit: Yes Status: Acute Code(s): S32.010A - WEDGE COMPRESSION FRACTURE OF FIRST LUMBAR VERTEBRA, INIT SNOMED Code(s): 265874395 (2) Traumatic compression fracture of T12 thoracic vertebra Current Visit: Yes Status: Acute Code(s): S22.080A - WEDGE COMPRESSION FRACTURE OF T11-T12 VERTEBRA, INIT SNOMED Code(s): 568126804 Plan: Impression: 1. Walking difficulty. 2. Compression fracture T12 and L1. 3. Osteophyte. 4. Reflux. 5. History of cancer. Comments and plan: At this time PT ongoing and OT prescribed. Rehab prognosis however guarded due to back pain and anticipated poor ability to tolerate and benefit from therapies. We'll follow with therapies with yourself though.
[2018-08-27 08:33] LABS: Basophils # (A) 0.1 k/uL (0-0.2); Basophils % (A) 1 %; Eosinophils # (A) 0.2 k/uL (0-0.7); Eosinophils % (A) 3 %; HCT 29.9 % (34.0-46.0); HGB 9.4 gm/dL (11.4-16.0); Hypochromasia Slight; Lymphocytes # (A) 0.9 k/uL (1.0-4.8); Lymphocytes % (A) 13 %; MCH 29.8 pg (25.0-35.0); MCHC 31.5 g/dL (31.0-37.0); MCV 94.6 fL (80.0-100.0); Mean Platelet Volume 6.7; Monocytes # (A) 0.4 k/uL (0-1.0); Monocytes % (A) 6 %; Neutrophils # (A) 5.6 k/uL (1.3-7.7); Neutrophils % (A) 76 %; Platelet Count 231 k/uL (150-450); RBC 3.16 m/uL (3.80-5.40); RDW 14.3 % (11.5-15.5); WBC 7.3 k/uL (3.8-10.6)
[2018-08-27 08:47] LABS: Calcium 8.6 mg/dL (8.4-10.2); Potassium 3.6 mmol/L (3.5-5.1); Total Bilirubin 0.6 mg/dL (0.2-1.3); Total Protein 6.6 g/dL (6.3-8.2)
[2018-08-27] MEDS: CHOLESTYRAMINE (WITH SUGAR) 4 GM PACKET PO SCH ×4 (09:10→21:37)
[2018-08-27] MEDS: FAMOTIDINE 20 MG TAB PO SCH (09:10)
[2018-08-27] MEDS: HEPARIN SODIUM,PORCINE 5,000 UNIT/ML 1 ML VIAL SQ SCH ×2 (09:48→21:43)
[2018-08-27] MEDS: MENTHOL-ZINC OXIDE OINT 113 GM TUBE TOPICAL PRN (09:49)
[2018-08-27] MEDS: NYSTATIN 100,000 UNIT/GM POWD 15 GM TOPICAL SCH ×2 (09:49→21:43)
--- NOTE | 2018-08-27 10:18 | P.PN ---
Subjective Progress Note Date: 08/27/18 This is a 87-year-old female patient of Dr. Pascual. Patient presented with complaints of fall. Patient states she was walking to her living room when she fell. Patient is supposed to be using walker which she was not at the time. Patient denies loss of consciousness. Patient states she's started to experience severe back pain. Per EMS report patient was draped in urine and feces upon arrival. Patient denies any recent illness or infection that could' ve precipitated the fall. Patient denies any burning with urination or recent cough or infection. Chest x-ray completed showing right upper lung reticular interstitial changes favor multifocal chronic fibrosis, correlate with old outside x-ray could be beneficial to confirm. CT of head and cervical spine completed showing no acute fracture or dislocation evident cervical spine. No acute intracranial hemorrhage or midline shift is seen. CT of thoracic lumbar spine without contrast completed showing superior endplate compression deformities T12 and L1 of indeterminate age. These are well-formed 2010. Mild superior posterior wall displacement between 3 and 4 mm into the spinal canal without cord contact spinal canal stenosis at the L1 and T12 levels. Disc bulging at L3 to 4, L4 to 5 and L5 to S1. Grade 1 spondylolisthesis of L5 anterior on S1 with disc uncovering. EKG completed showing normal sinus rhythm. Anterior infarct, age undetermined abnormal EKG. Patient states she does have a significant history of back surgeries including isidoro placement with Dr. Benitez. Dr. Benitez has been consulted for orthopedic surgery. Patient also reports a history of GI cancer. Exact characteristics unknown. Patient does state she follows with Dr. Bunn and receives monthly injections but has never received chemotherapy. Patient states she did undergo surgery for her cancer issue. Patient denies any significant cardiac or pulmonary history. UA and urine culture ordered. At this time patient denies chest pain or shortness of breath. Patient denies any nausea vomiting or diarrhea. Patient denies any urinary burning or frequency. Patient is complaining of back discomfort. Family and patient requesting something to eat. Will order diet at this time On 08/24/2018 patient currently awake and alert. Patient is still complaining of some back pain. Denies any nausea vomiting or diarrhea. Patient denies any urinary burning or frequency. Patient denies chest pain or shortness breath. On 08/25/2018 patient is alert and oriented in no apparent distress she is still complaining of pain in the back she is complaining of severe difficulty sitting up and standing up, otherwise she denies any complaints there is no fever or chills no headache or dizziness no chest pain no shortness of breath no cough no nausea or vomiting no abdominal pain no diarrhea and no urinary symptoms On 08/26/2018 patient was seen and examined on the medical floor she is laying in bed she is still complaining of severe back pain, yesterday she had an episode of presyncope, she tried to get to the bathroom, and almost passed out blood pressure was low at 85/40, IV fluid was increased to 75 mL an hour. Today patient is alert and oriented she is complaining of back pain and denies any other complaints at this time there is no fever or chills no headache or dizziness no chest pain no shortness of breath no cough no nausea or vomiting no abdominal pain no diarrhea and no urinary symptoms On 08/27/2018 patient is currently resting in bed. at bedside. Patient is complaining of back pain denies any other complaints at this time. Patient currently has a back brace. Encourage patient to sit up in chair today. At this time patient denies chest pain or shortness of breath. Patient denies nausea vomiting or diarrhea. Patient denies any urinary burning or frequency Objective - Vital Signs Vital signs: Vital Signs Temp 98.6 F 08/27/18 05:00 Pulse 89 08/27/18 05:00 Resp 16 08/27/18 05:00 BP 135/74 08/27/18 05:00 Pulse Ox 95 08/27/18 08:03 Intake & Output 08/26/18 08/27/18 08/27/18 18:59 06:59 18:59 Intake Total 200 1260 Balance 200 1260 Weight 63.503 kg Intake: Intake, IV Titration 900 Amount Sodium Chloride 0.9% 1, 900 000 ml @ 75 mls/hr IV . [id number] [facility] Rx#:[id number] Oral 200 360 Other: Voiding Method Incontinent Incontinent Incontinent # Voids 2 1 # Bowel Movements 1 - Exam Head normocephalic Neck supple Lungs clear to auscultation bilaterally no wheezing or crackles Heart regular rate and rhythm S1-S2, no rub or gallop Abdomen is soft nontender nondistended positive bowel sounds no hepatosplenomegaly Extremities no edema Neuro alert and orientated to 3 - Labs CBC & Chem 7: 08/27/18 07:50 08/27/18 07:50 Labs: Abnormal Lab Results - Last 24 Hours (Table) 08/26/18 08/27/18 08/27/18 Range/Units 09:20 07:50 07:50 RBC 3.54 L 3.16 L (3.80-5.40) m/uL Hgb 10.2 L 9.4 L (11.4-16.0) gm/dL Hct 33.8 L 29.9 L (34.0-46.0) % MCHC 30.1 L (31.0-37.0) g/dL Lymphocytes # 0.9 L (1.0-4.8) k/uL Chloride 114 H (98-107) mmol/L Carbon Dioxide 19 L (22-30) mmol/L Creatinine 1.63 H (0.52-1.04) mg/dL Albumin 3.0 L (3.5-5.0) g/dL Assessment and Plan Assessment: 1. Fall with compression fracture. CT of head and neck completed showing no acute fracture or dislocation evident cervical spine. No acute intracranial hemorrhage or midline shift is seen. Thoracic lumbar CT completed showing superior endplate compression deformities T12 and L1 of indeterminate age. These are interval from 2009. Mild superior posterior wall displacement between 3 and 4 mm into the spinal canal without cord contact or spinal canal stenosis at L1 and T12 levels. Disc bulging present of 3-4, L4 to 5 and L5 to S1. 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 Dr. Benitez has been consulted for orthopedics. 2. Acute renal failure, improving creatinine is down from 1.83-1.58 continue with IV fluid. Current creatinine 1.63 3. 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 Exact characteristics unknown. Patient states she follows with Dr. Bunn in which she receives monthly injections. 5. Chronic diarrhea. Patient states diarrhea is from her known cancer 6. Hypothyroidism. Continue Synthroid 7. History of asthma no exacerbation at this time 8. History of GERD 9. Short-term memory loss 10. Physical debility patient is having significant difficulty sitting up and standing up, physical therapy following patient may need to be transferred to a rehab unit if not improving 11. Episode of presyncope with check echocardiogram and carotid Doppler will follow in a.m.. Carotid Doppler completed no significant evidence of hemodynamically stenosis in either carotid system seen. 12. Decreased appetite. Will consult dietary services at this time DVT prophylaxis heparin. GI prophylaxis Pepcid Physical therapy recommending rehab. Dr. Awad consulted for inpatient rehab. Rehab prognosis is guarded due to back pain anticipated portability tolerated and physical therapy I performed an examination of the patient and discussed their management with the Nurse Practitioner. I have reviewed the Nurse Practitioner's notes and agree with the documented findings and plan of care
--- NOTE | 2018-08-27 13:21 | ECHOF ---
Referral Reason:presyncope MEASUREMENTS -------- HEIGHT: 152.4 cm WEIGHT: 63.5 kg BP: 135/74 IVSd: 1.0 cm (0.6 - 1.1) LVIDd: 3.8 cm (3.9 - 5.3) LVPWd: 1.0 cm (0.6 - 1.1) IVSs: 1.2 cm LVIDs: 2.2 cm LVPWs: 1.2 cm LAESV Index (A-L): 10.29 ml/m Ao Diam: 2.9 cm (2.0 - 3.7) AV Cusp: 1.6 cm (1.5 - 2.6) LA Diam: 2.9 cm (2.7 - 3.8) MV E Yury: 0.78 m/s MV DecT: 231 ms MV A Yury: 1.33 m/s MV E/A Ratio: 0.59 AR PHT: 316 ms RAP: 5.00 mmHg RVSP: 37.20 mmHg FINDINGS -------- Sinus rhythm. This was a technically adequate study. The left ventricular size is normal. Left ventricular wall thickness is normal. Overall left vent ricular systolic function is normal with, an EF between 55 - 60 %. The right ventricle is normal in size and function. Normal LA size by volume 22+/-6 ml/m2. The right atrium is normal in size. There is mild aortic valve sclerosis. There is moderate aortic regurgitation. There is no evidenc e of aortic stenosis. The mitral valve leaflets are mildly thickened. Mild mitral annular calcification present. There is trace to mild mitral regurgitation. Mild tricuspid regurgitation present. There is borderline pulmonary hypertension. The right ventr icular systolic pressure, as measured by Doppler, is 37.20mmHg. Trace/mild (physiologic) pulmonic regurgitation. The aortic root size is normal. IVC Not well visulized. There is no pericardial effusion. CONCLUSIONS -------- 1. Sinus rhythm. 2. This was a technically adequate study. 3. The left ventricular size is normal. 4. Left ventricular wall thickness is normal. 5. Overall left ventricular systolic function is normal with, an EF between 55 - 60 %. 6. Normal LA size by volume 22+/-6 ml/m2. 7. There is mild aortic valve sclerosis. 8. There is moderate aortic regurgitation. 9. The mitral valve leaflets are mildly thickened. 10. Mild mitral annular calcification present. 11. There is trace to mild mitral regurgitation. 12. Mild tricuspid regurgitation present. 13. There is borderline pulmonary hypertension. 14. The right ventricular systolic pressure, as measured by Doppler, is 37.20mmHg. 15. Trace/mild (physiologic) pulmonic regurgitation. 16. The aortic root size is normal. 17. IVC Not well visulized. 18. There is no pericardial effusion. [employer] ENGINEER: Shay Ford RDCS
[2018-08-27 14:44] VITALS: BMI 27.3
[2018-08-27] MEDS: SODIUM CHLORIDE 0.9% 1,000 ML IV SCH (15:06)
[2018-08-28] MEDS: LEVOTHYROXINE 100 MCG TAB PO SCH (05:30)
[2018-08-28] MEDS: LEVOTHYROXINE 75 MCG TAB PO SCH (05:30)
[2018-08-28] MEDS: traMADol 50 MG TAB PO SCH ×4 (05:30→20:39)
[2018-08-28 09:00] LABS: Basophils % (A) 0 %; Eosinophils # (A) 0.2 k/uL (0-0.7); Eosinophils % (A) 3 %; HCT 30.2 % (34.0-46.0); HGB 9.6 gm/dL (11.4-16.0); Hypochromasia Slight; Lymphocytes # (A) 1.3 k/uL (1.0-4.8); Lymphocytes % (A) 15 %; MCH 29.9 pg (25.0-35.0); MCHC 31.9 g/dL (31.0-37.0); MCV 93.9 fL (80.0-100.0); Mean Platelet Volume 6.6; Monocytes # (A) 0.5 k/uL (0-1.0); Monocytes % (A) 6 %; Neutrophils % (A) 73 %; Platelet Count 232 k/uL (150-450); RBC 3.22 m/uL (3.80-5.40); RDW 14.2 % (11.5-15.5); WBC 8.2 k/uL (3.8-10.6)
[2018-08-28 09:13] LABS: Calcium 8.6 mg/dL (8.4-10.2); Potassium 3.2 mmol/L (3.5-5.1); Total Bilirubin 0.7 mg/dL (0.2-1.3); Total Protein 6.7 g/dL (6.3-8.2)
[2018-08-28] MEDS ORDERED: Potassium Replacement Protocol 1 EACH MISC MISCELLANE PRN (09:15)
[2018-08-28] MEDS: FAMOTIDINE 20 MG TAB PO SCH (09:30)
[2018-08-28] MEDS: CHOLESTYRAMINE (WITH SUGAR) 4 GM PACKET PO SCH ×4 (09:30→20:39)
[2018-08-28] MEDS: HEPARIN SODIUM,PORCINE 5,000 UNIT/ML 1 ML VIAL SQ SCH ×2 (09:37→20:39)
[2018-08-28] MEDS: MORPHINE SULFATE 2 MG/ML SYRINGE IVP PRN (09:37)
--- NOTE | 2018-08-28 09:40 | P.PN ---
Subjective Progress Note Date: 08/28/18 This is a 87-year-old female patient of Dr. Pascual. Patient presented with complaints of fall. Patient states she was walking to her living room when she fell. Patient is supposed to be using walker which she was not at the time. Patient denies loss of consciousness. Patient states she's started to experience severe back pain. Per EMS report patient was draped in urine and feces upon arrival. Patient denies any recent illness or infection that could' ve precipitated the fall. Patient denies any burning with urination or recent cough or infection. Chest x-ray completed showing right upper lung reticular interstitial changes favor multifocal chronic fibrosis, correlate with old outside x-ray could be beneficial to confirm. CT of head and cervical spine completed showing no acute fracture or dislocation evident cervical spine. No acute intracranial hemorrhage or midline shift is seen. CT of thoracic lumbar spine without contrast completed showing superior endplate compression deformities T12 and L1 of indeterminate age. These are well-formed 2010. Mild superior posterior wall displacement between 3 and 4 mm into the spinal canal without cord contact spinal canal stenosis at the L1 and T12 levels. Disc bulging at L3 to 4, L4 to 5 and L5 to S1. Grade 1 spondylolisthesis of L5 anterior on S1 with disc uncovering. EKG completed showing normal sinus rhythm. Anterior infarct, age undetermined abnormal EKG. Patient states she does have a significant history of back surgeries including isidoro placement with Dr. Benitez. Dr. Benitez has been consulted for orthopedic surgery. Patient also reports a history of GI cancer. Exact characteristics unknown. Patient does state she follows with Dr. Bunn and receives monthly injections but has never received chemotherapy. Patient states she did undergo surgery for her cancer issue. Patient denies any significant cardiac or pulmonary history. UA and urine culture ordered. At this time patient denies chest pain or shortness of breath. Patient denies any nausea vomiting or diarrhea. Patient denies any urinary burning or frequency. Patient is complaining of back discomfort. Family and patient requesting something to eat. Will order diet at this time On 08/24/2018 patient currently awake and alert. Patient is still complaining of some back pain. Denies any nausea vomiting or diarrhea. Patient denies any urinary burning or frequency. Patient denies chest pain or shortness breath. On 08/25/2018 patient is alert and oriented in no apparent distress she is still complaining of pain in the back she is complaining of severe difficulty sitting up and standing up, otherwise she denies any complaints there is no fever or chills no headache or dizziness no chest pain no shortness of breath no cough no nausea or vomiting no abdominal pain no diarrhea and no urinary symptoms On 08/26/2018 patient was seen and examined on the medical floor she is laying in bed she is still complaining of severe back pain, yesterday she had an episode of presyncope, she tried to get to the bathroom, and almost passed out blood pressure was low at 85/40, IV fluid was increased to 75 mL an hour. Today patient is alert and oriented she is complaining of back pain and denies any other complaints at this time there is no fever or chills no headache or dizziness no chest pain no shortness of breath no cough no nausea or vomiting no abdominal pain no diarrhea and no urinary symptoms On 08/27/2018 patient is currently resting in bed. at bedside. Patient is complaining of back pain denies any other complaints at this time. Patient currently has a back brace. Encourage patient to sit up in chair today. At this time patient denies chest pain or shortness of breath. Patient denies nausea vomiting or diarrhea. Patient denies any urinary burning or frequency On 08/28/2018 patient is currently resting in bed. Per patient is having trouble swallowing her food. At this time will make patient nothing by mouth. Will order speech eval for swallow evaluation and chest x-ray. Patient' s family also concerned that she has a low brace is not fitting correctly and getting put on correctly. Will reconsult orthopedic services to come evaluate back brace. At this time patient denies chest pain or shortness of breath. Patient denies cough. Patient denies nausea vomiting or diarrhea. Patient denies any urinary burning or frequency. Objective - Vital Signs Vital signs: Vital Signs Temp 98.4 F 08/28/18 05:00 Pulse 97 08/28/18 05:00 Resp 16 08/28/18 05:00 BP 163/71 08/28/18 05:00 Pulse Ox 96 08/28/18 05:00 Intake & Output 08/27/18 08/28/18 08/28/18 18:59 06:59 18:59 Intake Total 1040 Balance 1040 Weight 63.503 kg Intake: Intake, IV Titration 650 Amount Sodium Chloride 0.9% 1, 650 000 ml @ 75 mls/hr IV . [id number] [facility] Rx#:[id number] Oral 390 Other: Voiding Method Incontinent Diaper Incontinent # Voids 1 6 # Bowel Movements 1 1 - Exam Head normocephalic Neck supple Lungs clear to auscultation bilaterally no wheezing or crackles Heart regular rate and rhythm S1-S2, no rub or gallop Abdomen is soft nontender nondistended positive bowel sounds no hepatosplenomegaly Extremities no edema Neuro alert and orientated to 3 - Labs CBC & Chem 7: 08/28/18 08:39 08/28/18 08:39 Labs: Abnormal Lab Results - Last 24 Hours (Table) 08/28/18 08/28/18 Range/Units 08:39 08:39 RBC 3.22 L (3.80-5.40) m/uL Hgb 9.6 L (11.4-16.0) gm/dL Hct 30.2 L (34.0-46.0) % Potassium 3.2 L (3.5-5.1) mmol/L Chloride 111 H (98-107) mmol/L Carbon Dioxide 21 L (22-30) mmol/L Creatinine 1.54 H (0.52-1.04) mg/dL Albumin 3.0 L (3.5-5.0) g/dL Assessment and Plan Assessment: 1. Fall with compression fracture. CT of head and neck completed showing no acute fracture or dislocation evident cervical spine. No acute intracranial hemorrhage or midline shift is seen. Thoracic lumbar CT completed showing superior endplate compression deformities T12 and L1 of indeterminate age. These are interval from 2009. Mild superior posterior wall displacement between 3 and 4 mm into the spinal canal without cord contact or spinal canal stenosis at L1 and T12 levels. Disc bulging present of 3-4, L4 to 5 and L5 to S1. 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 Per orthopedic services patient should wear TLSO brace when sitting upright a greater than 45, during ambulation, during increase activity, working with physical therapy. Patient to follow-up outpatient with orthopedic service in approximately 2-3 weeks. Family concerned that brace is not fitting correctly. We'll ask orthopedic services to reevaluate brace. 2. Acute renal failure, improving creatinine is down from 1.83-1.58 continue with IV fluid. Current creatinine 1.54 3. 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 Exact characteristics unknown. Patient states she follows with Dr. Bunn in which she receives monthly injections. 5. Chronic diarrhea. Patient states diarrhea is from her known cancer 6. Hypothyroidism. Continue Synthroid 7. History of asthma no exacerbation at this time 8. History of GERD 9. Short-term memory loss 10. Physical debility patient is having significant difficulty sitting up and standing up, physical therapy following patient may need to be transferred to a rehab unit if not improving 11. Episode of presyncope with check echocardiogram and carotid Doppler will follow in a.m.. Carotid Doppler completed no significant evidence of hemodynamically stenosis in either carotid system seen. 12. Decreased appetite. Will consult dietary services at this time 13. Difficulty swallowing. Patient will be maintained nothing by mouth. Speech consult placed for swallow evaluation. Chest x-ray ordered 14. Hypokalemia. Potassium 3.2. Replace with IV replacement at this time due to nothing by mouth status DVT prophylaxis heparin. GI prophylaxis Pepcid Physical therapy recommending rehab. Dr. Awad consulted for inpatient rehab. Rehab prognosis is guarded due to back pain anticipated portability tolerated and physical therapy I performed an examination of the patient and discussed their management with the Nurse Practitioner. I have reviewed the Nurse Practitioner's notes and agree with the documented findings and plan of care
[2018-08-28] MEDS: NYSTATIN 100,000 UNIT/GM POWD 15 GM TOPICAL SCH ×2 (09:41→20:42)
[2018-08-28] MEDS: POTASSIUM CHLORIDE 10 MEQ in WATER FOR INJECTION 1 100ML.BAG IVPB SCH ×4 (09:45→17:26)
--- NOTE | 2018-08-28 12:34 | P.PN ---
Progress Note - Text Progress Note Date: 08/28/18 Patient is a very pleasant 87-year-old female who is seen and examined at bedside or follow-up evaluation for thoracolumbar pain and evidence of compression fracture deformities at T12 and L1. Since consultation she has not had significant improvement of her symptoms. Patient sustained a fall at home and was found by her . Since that time she's had significant difficulty with ambulation and movement of her thoracolumbar spine. She states her pain is controlled at rest. Her pain is exacerbated with movements of her spine. She denies any specific lower extremity weakness or radiculopathy bilaterally. She has had a Spinomed TLSO brought and fitted at the bedside but has had some difficulties with the fitting of this brace. DME is planning to return today to try to adjust this brace for a better fit. She has been seen and examined outpatient setting approximately a month and a half ago by Dr. Benitez for back pain and states there was not evidence of fracture at that time. She does have a history of X-Stop placement surgically at her lumbar spine. She continues to be seen and examined by medicine. Patient has a past medical history including GI cancer and follows with Dr. Bunn. Physical exam: Patient is awake, alert, and oriented 3 Vital signs stable Good chest excursion with deep inspiration and expiration Abdomen soft nontender Examination of thoracolumbar spine reveals skin is intact with no abrasions, lacerations, or bruises; no erythema, purulence or signs of infection Significant pain along the midline of the spine at approximately the thoracolumbar junction Dorsiflexion, plantarflexion, and extensor hallucis longus positive sustained bilaterally Lower extremity strength adequate throughout range of motion bilaterally No lower extremity hyperreflexia bilaterally Straight leg test negative bilateral lower extremities Negative Lasegue's test bilaterally No signs or symptoms of DVT; no calf pain No pain with internal and external rotation of the hips bilaterally Neurovascularly intact Pertinent studies: CT of the thoracic and lumbar spines: T12 superior endplate compression with approximately 10% to 15% height loss; L1 compression fracture deformity with approximately 40% height loss; L3-4 disc bulge L4-5 evidence of previous surgical intervention in which hardware appears in good alignment and position; L5-S1 spondylolisthesis and disc bulge CT of the brain and cervical spine: C4-5 degenerative disc disease and retrolisthesis; C5-6 anterior osteophytic spurring no evidence of acute fracture within the cervical spine; no evidence of acute intracranial hemorrhage or midline shift Assessment: Acute traumatic T12 and L1 compression fracture deformity status post fall Intractable thoracolumbar pain Inability to ambulate due to pain History his previous lumbar surgical intervention at L4-5 in which hardware appears to be in good alignment and position History of GI cancer Plan: 1. We will continue with the plan as previously set forth. After reviewing of imaging, physical examination of the patient, and further discussion with the patient and her , we will plan to continue with conservative treatment at this time. She does have evidence of compression fracture deformities at T12 and L1 in which her pain is acute status post fall. She does have history of previous surgical intervention in her lumbar spine. At this time, we'll plan for bracing. A prescription for a Spinomed TLSO has been written, signed, and provided to case management. This brace has been delivered and fitted at the bedside but the patient has had some difficulties with fitting of this brace. The DME facility will plan to return today and attempt to fit this brace more comfortably for the patient. Once this brace has been fitted appropriately, patient will be clear for discharge from orthopedic spine standpoint. Patient should wear this brace while sitting upright at greater than 45, during ambulation, during increase activities, and while working with physical therapy. Brace does not have to worn while lying in bed or while bathing. 2. Patient will continue be seen again by medicine who may plan for the patient to be discharged as early as today, 08/28/2018 3. Continue pain control medications as prescribed 4. Following discharge, patient may follow-up with Romain Bill PA-C or Dr. Gabino Benitez at [facility] in approximately 2-3 weeks for further evaluation 5. Patient has been discussed in detail with Dr. Gabino Benitez and he agrees with this plan
--- NOTE | 2018-08-28 13:54 | XR ---
EXAMINATION TYPE: XR chest 2V DATE OF EXAM: 08/28/2018 COMPARISON: 08/23/2018 HISTORY: Cough and congestion with concern for pneumonia. TECHNIQUE: Frontal and lateral views of the chest are obtained. FINDINGS: There is diffuse interstitial prominence that appears chronic in nature. Subpleural reticu lar opacities are seen peripherally, right greater than left with right apical pleural-parenchymal sc arring noted. There is generalized osseous demineralization and high riding humeral head suggestive o f chronic rotator cuff injury. Degenerative changes of the thoracic spine and glenohumeral joints are present. Cardia mediastinal silhouette is within normal limits. No sizable pleural effusion or pneum othorax. IMPRESSION: Subpleural reticulation and interstitial prominence suggest a degree of pulmonary fibros is and/or interstitial lung disease. No focal consolidation to suggest pneumonia. If there is clinica l discordance CT thorax could further assess these findings.
[2018-08-28] MEDS: SODIUM CHLORIDE 0.9% 1,000 ML IV SCH (15:36)
[2018-08-29] MEDS: traMADol 50 MG TAB PO SCH ×4 (04:04→19:55)
[2018-08-29] MEDS: LEVOTHYROXINE 75 MCG TAB PO SCH (05:36)
[2018-08-29] MEDS: LEVOTHYROXINE 100 MCG TAB PO SCH (05:36)
[2018-08-29] MEDS: FAMOTIDINE 20 MG TAB PO SCH (08:23)
[2018-08-29] MEDS: CHOLESTYRAMINE (WITH SUGAR) 4 GM PACKET PO SCH ×4 (08:23→19:56)
[2018-08-29] MEDS: NYSTATIN 100,000 UNIT/GM POWD 15 GM TOPICAL SCH ×2 (08:24→19:56)
[2018-08-29] MEDS: HEPARIN SODIUM,PORCINE 5,000 UNIT/ML 1 ML VIAL SQ SCH ×2 (08:24→19:55)
[2018-08-29 08:38] LABS: Basophils % (A) 0 %; Eosinophils # (A) 0.3 k/uL (0-0.7); Eosinophils % (A) 4 %; HCT 27.6 % (34.0-46.0); HGB 8.8 gm/dL (11.4-16.0); Hypochromasia Slight; Lymphocytes # (A) 1.5 k/uL (1.0-4.8); Lymphocytes % (A) 20 %; MCH 29.7 pg (25.0-35.0); MCV 92.9 fL (80.0-100.0); Mean Platelet Volume 6.9; Monocytes # (A) 0.4 k/uL (0-1.0); Monocytes % (A) 6 %; Neutrophils % (A) 68 %; Platelet Count 258 k/uL (150-450); RBC 2.97 m/uL (3.80-5.40); RDW 14.4 % (11.5-15.5); WBC 7.5 k/uL (3.8-10.6)
[2018-08-29 08:57] LABS: Albumin 2.7 g/dL (3.5-5.0); Calcium 8.5 mg/dL (8.4-10.2); Potassium 3.9 mmol/L (3.5-5.1); Total Bilirubin 0.6 mg/dL (0.2-1.3); Total Protein 6.3 g/dL (6.3-8.2)
[2018-08-29] MEDS ORDERED: ERGOCALCIFEROL 50,000 UNIT CAP PO SCH (12:00)
--- NOTE | 2018-08-29 14:12 | P.DS ---
Providers Date of admission: 08/26/18 15:33 Expected date of discharge: 08/29/18 Attending physician: Susie Paulino Consults: 08/25/18 11:22 Consult Physician Routine Consulting Provider: Jer Awad Consult Reason/Comments: possible rehab admission Do you want consulting provider notified?: Yes 08/28/18 09:17 Consult Physician Routine Consulting Provider: Brett Benitez Consult Reason/Comments: assess correct back brace Do you want consulting provider notified?: Yes Primary care physician: Shelby Pascual Hospital Course: Discharge diagnosis 1. Fall with compression fracture. CT of head and neck completed showing no acute fracture or dislocation evident cervical spine. No acute intracranial hemorrhage or midline shift is seen. Thoracic lumbar CT completed showing superior endplate compression deformities T12 and L1 of indeterminate age. These are interval from 2009. Mild superior posterior wall displacement between 3 and 4 mm into the spinal canal without cord contact or spinal canal stenosis at L1 and T12 levels. Disc bulging present of 3-4, L4 to 5 and L5 to S1. 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 Per orthopedic services patient should wear TLSO brace when sitting upright a greater than 45, during ambulation, during increase activity, working with physical therapy. Patient to follow-up outpatient with orthopedic service in approximately 2-3 weeks. TLSO brace readjusted per orthopedics. Patient has been cleared for discharge to [facility] facility for further intervention. 2. Acute renal failure, improving creatinine is down from 1.83-1.58 continue with IV fluid. Current creatinine 1.54. Cozaar will be held on discharge. 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 Exact characteristics unknown. Patient states she follows with Dr. Bunn in which she receives monthly injections. 5. Chronic diarrhea. Patient states diarrhea is from her known cancer 6. Hypothyroidism. Continue Synthroid 7. History of asthma no exacerbation at this time 8. History of GERD 9. Short-term memory loss 10. Physical debility patient is having significant difficulty sitting up and standing up, physical therapy following patient may need to be transferred to a rehab unit if not improving 11. Episode of presyncope with check echocardiogram and carotid Doppler will follow in a.m.. Carotid Doppler completed no significant evidence of hemodynamically stenosis in either carotid system seen. 12. Decreased appetite. Will consult dietary services at this time 13. Difficulty swallowing. Patient will be maintained nothing by mouth. Speech pathology recommending dysphagia 3 diet. Chest x-ray completed showing subpleural reticulation and interstitial prominence adjusted to recovery of Fallot pulmonary fibrosis and/or interstitial lung disease. No focal consolidation to suggest pneumonia. There is clinical dyscoria CT thorax could further assess 6 findings. Patient denies any shortness of breath or difficulty in breathing. Patient has been tolerating diet 14. Hypokalemia. Potassium 3.2. Replace with IV replacement. 15. Iron deficiency anemia. Patient started on ferrous sulfate. Will order repeat CBC for 1 day Patient will be discharged to [facility] course This is a 87-year-old female patient of Dr. Pascual. Patient presented with complaints of fall. Patient states she was walking to her living room when she fell. Patient is supposed to be using walker which she was not at the time. Patient denies loss of consciousness. Patient states she's started to experience severe back pain. Per EMS report patient was draped in urine and feces upon arrival. Patient denies any recent illness or infection that could' ve precipitated the fall. Patient denies any burning with urination or recent cough or infection. Chest x-ray completed showing right upper lung reticular interstitial changes favor multifocal chronic fibrosis, correlate with old outside x-ray could be beneficial to confirm. CT of head and cervical spine completed showing no acute fracture or dislocation evident cervical spine. No acute intracranial hemorrhage or midline shift is seen. CT of thoracic lumbar spine without contrast completed showing superior endplate compression deformities T12 and L1 of indeterminate age. These are well-formed 2010. Mild superior posterior wall displacement between 3 and 4 mm into the spinal canal without cord contact spinal canal stenosis at the L1 and T12 levels. Disc bulging at L3 to 4, L4 to 5 and L5 to S1. Grade 1 spondylolisthesis of L5 anterior on S1 with disc uncovering. EKG completed showing normal sinus rhythm. Anterior infarct, age undetermined abnormal EKG. Patient states she does have a significant history of back surgeries including isidoro placement with Dr. Benitez. Dr. Benitez has been consulted for orthopedic surgery. Patient also reports a history of GI cancer. Exact characteristics unknown. Patient does state she follows with Dr. Bunn and receives monthly injections but has never received chemotherapy. Patient states she did undergo surgery for her cancer issue. Patient denies any significant cardiac or pulmonary history. UA and urine culture ordered. At this time patient denies chest pain or shortness of breath. Patient denies any nausea vomiting or diarrhea. Patient denies any urinary burning or frequency. Patient is complaining of back discomfort. Family and patient requesting something to eat. Will order diet at this time On 08/24/2018 patient currently awake and alert. Patient is still complaining of some back pain. Denies any nausea vomiting or diarrhea. Patient denies any urinary burning or frequency. Patient denies chest pain or shortness breath. On 08/25/2018 patient is alert and oriented in no apparent distress she is still complaining of pain in the back she is complaining of severe difficulty sitting up and standing up, otherwise she denies any complaints there is no fever or chills no headache or dizziness no chest pain no shortness of breath no cough no nausea or vomiting no abdominal pain no diarrhea and no urinary symptoms On 08/26/2018 patient was seen and examined on the medical floor she is laying in bed she is still complaining of severe back pain, yesterday she had an episode of presyncope, she tried to get to the bathroom, and almost passed out blood pressure was low at 85/40, IV fluid was increased to 75 mL an hour. Today patient is alert and oriented she is complaining of back pain and denies any other complaints at this time there is no fever or chills no headache or dizziness no chest pain no shortness of breath no cough no nausea or vomiting no abdominal pain no diarrhea and no urinary symptoms On 08/27/2018 patient is currently resting in bed. at bedside. Patient is complaining of back pain denies any other complaints at this time. Patient currently has a back brace. Encourage patient to sit up in chair today. At this time patient denies chest pain or shortness of breath. Patient denies nausea vomiting or diarrhea. Patient denies any urinary burning or frequency On 08/28/2018 patient is currently resting in bed. Per patient is having trouble swallowing her food. At this time will make patient nothing by mouth. Will order speech eval for swallow evaluation and chest x-ray. Patient' s family also concerned that she has a low brace is not fitting correctly and getting put on correctly. Will reconsult orthopedic services to come evaluate back brace. At this time patient denies chest pain or shortness of breath. Patient denies cough. Patient denies nausea vomiting or diarrhea. Patient denies any urinary burning or frequency. On 08/29/2018 patient currently resting in bed. TLSO brace have been adjusted per orthopedics. Orthopedics has cleared patient for discharge. Cozaar will be held on discharge to acute kidney injury. Repeat CMP and CBC has been ordered for 1 day. Patient to be on dysphagia 3 diet per speech pathology recommendations. Patient denies chest pain or shortness breath. Patient denies nausea vomiting or diarrhea. Patient denies any urinary burning or frequency I performed an examination of the patient and discussed their management with the Nurse Practitioner. I have reviewed the Nurse Practitioner's notes and agree with the documented findings and plan of care Patient Condition at Discharge: Stable Plan - Discharge Summary Discharge Rx Participant: No New Discharge Prescriptions: New traMADol HCl [Ultram] 100 mg PO Q6H tab Ferrous Sulfate [Iron (65 MG Elemental)] 325 mg PO BID #60 tab Continue Nystatin 100,000 Unit/gm Powd [Mycostatin Powder] 1 applic TOPICAL BID Levothyroxine Sodium [Synthroid] 175 mcg PO DAILY Ergocalciferol (Vitamin D2) [Vitamin D2] 50,000 unit PO Q7D SILVER sulfADIAZINE CREAM [Silvadene Cream] 1 applic TOPICAL BID Menthol-Zinc Oxide Oint [Calmoseptine Oint] 1 applic TOPICAL DAILY PRN PRN Reason: STOOL Diphenoxylate HCl/Atropine [Lomotil 2.5-0.025 mg Tablet] 2 tab PO Q6H PRN PRN Reason: Diarrhea Cholestyramine (with Sugar) [Cholestyramine Packet] 4 gm PO 5XD Discontinued Acetaminophen with Codeine [Tylenol w/codeine #4] 1 tab PO QID PRN PRN Reason: Pain Losartan Potassium [Cozaar] 12.5 mg PO DAILY Discharge Medication List Cholestyramine (with Sugar) [Cholestyramine Packet] 4 gm PO 5XD 08/23/18 [ History] Diphenoxylate HCl/Atropine [Lomotil 2.5-0.025 mg Tablet] 2 tab PO Q6H PRN [History] Ergocalciferol (Vitamin D2) [Vitamin D2] 50,000 unit PO Q7D 08/23/18 [History] Levothyroxine Sodium [Synthroid] 175 mcg PO DAILY 08/23/18 [History] Menthol-Zinc Oxide Oint [Calmoseptine Oint] 1 applic TOPICAL DAILY PRN 08/23/18 [History] Nystatin 100,000 Unit/gm Powd [Mycostatin Powder] 1 applic TOPICAL BID 08/23/18 [History] SILVER sulfADIAZINE CREAM [Silvadene Cream] 1 applic TOPICAL BID 08/23/18 [ History] Ferrous Sulfate [Iron (65 MG Elemental)] 325 mg PO BID #60 tab 08/29/18 [Rx] traMADol HCl [Ultram] 100 mg PO Q6H tab 08/29/18 [Rx] Follow up Appointment(s)/Referral(s): Romain Bill PAC [PHYSICIAN MOLD DRESSER] - 2 Weeks (Patient may follow-up with Romain Bill PA-C or Dr. Gabino Benitez at [facility] in 2-3 weeks following discharge. ) Shelby Pascual DO [Primary Care Provider] - 1-2 days Ambulatory/Diagnostic Orders: Complete Blood Count w/diff [LAB.AMB] Time Frame: 1 Day, Location: None Selected Comprehensive Metabolic Panel [LAB.AMB] Time Frame: 1 Day, Location: None Selected Activity/Diet/Wound Care/Special Instructions: 1. Patient may wear Spinomed TLSO brace for comfort and support while sitting upright at greater than 45, while working with therapy, and while ambulating; patient does not have to wear the brace while lying in bed or bathing 2. Patient should avoid excessive bending, twisting, and lifting; no lifting greater than 10 pounds Diet dysphagia level III No straws 1:1 supervision Aspiration precautions Patient to be followed by Dr. Paulino CBC and CMP in 2 days Discharge Disposition: TRANSFER TO SNF/ECF
[2018-08-29] MEDS: SODIUM CHLORIDE 0.9% 1,000 ML IV SCH (18:03)
[2018-08-29] MEDS: MENTHOL-ZINC OXIDE OINT 113 GM TUBE TOPICAL PRN (19:56)
[2018-08-30] MEDS: traMADol 50 MG TAB PO SCH ×4 (04:14→21:22)
[2018-08-30] MEDS: LEVOTHYROXINE 100 MCG TAB PO SCH (05:34)
[2018-08-30] MEDS: LEVOTHYROXINE 75 MCG TAB PO SCH (05:34)
[2018-08-30 08:09] LABS: Basophils % (A) 0 %; Eosinophils # (A) 0.3 k/uL (0-0.7); Eosinophils % (A) 4 %; HCT 28.5 % (34.0-46.0); HGB 9.2 gm/dL (11.4-16.0); Hypochromasia Slight; Lymphocytes # (A) 1.3 k/uL (1.0-4.8); Lymphocytes % (A) 17 %; MCHC 32.3 g/dL (31.0-37.0); MCV 92.8 fL (80.0-100.0); Mean Platelet Volume 7.2; Monocytes # (A) 0.4 k/uL (0-1.0); Monocytes % (A) 6 %; Neutrophils # (A) 5.3 k/uL (1.3-7.7); Neutrophils % (A) 71 %; Platelet Count 312 k/uL (150-450); RBC 3.07 m/uL (3.80-5.40); RDW 14.4 % (11.5-15.5); WBC 7.5 k/uL (3.8-10.6)
[2018-08-30 08:22] LABS: Albumin 2.7 g/dL (3.5-5.0); Calcium 8.1 mg/dL (8.4-10.2); Potassium 3.1 mmol/L (3.5-5.1); Total Bilirubin 0.7 mg/dL (0.2-1.3); Total Protein 6.4 g/dL (6.3-8.2)
[2018-08-30] MEDS: CHOLESTYRAMINE (WITH SUGAR) 4 GM PACKET PO SCH ×4 (08:27→21:14)
[2018-08-30] MEDS: HEPARIN SODIUM,PORCINE 5,000 UNIT/ML 1 ML VIAL SQ SCH ×2 (08:28→21:21)
[2018-08-30] MEDS: FAMOTIDINE 20 MG TAB PO SCH (08:28)
[2018-08-30] MEDS: NYSTATIN 100,000 UNIT/GM POWD 15 GM TOPICAL SCH ×2 (08:29→21:22)
[2018-08-30] MEDS ORDERED: Potassium Replacement Protocol 1 EACH MISC MISCELLANE PRN (11:06)
--- NOTE | 2018-08-30 11:22 | P.PN ---
Subjective Progress Note Date: 08/30/18 This is a 87-year-old female patient of Dr. Pascual. Patient presented with complaints of fall. Patient states she was walking to her living room when she fell. Patient is supposed to be using walker which she was not at the time. Patient denies loss of consciousness. Patient states she's started to experience severe back pain. Per EMS report patient was draped in urine and feces upon arrival. Patient denies any recent illness or infection that could' ve precipitated the fall. Patient denies any burning with urination or recent cough or infection. Chest x-ray completed showing right upper lung reticular interstitial changes favor multifocal chronic fibrosis, correlate with old outside x-ray could be beneficial to confirm. CT of head and cervical spine completed showing no acute fracture or dislocation evident cervical spine. No acute intracranial hemorrhage or midline shift is seen. CT of thoracic lumbar spine without contrast completed showing superior endplate compression deformities T12 and L1 of indeterminate age. These are well-formed 2010. Mild superior posterior wall displacement between 3 and 4 mm into the spinal canal without cord contact spinal canal stenosis at the L1 and T12 levels. Disc bulging at L3 to 4, L4 to 5 and L5 to S1. Grade 1 spondylolisthesis of L5 anterior on S1 with disc uncovering. EKG completed showing normal sinus rhythm. Anterior infarct, age undetermined abnormal EKG. Patient states she does have a significant history of back surgeries including isidoro placement with Dr. Benitez. Dr. Benitez has been consulted for orthopedic surgery. Patient also reports a history of GI cancer. Exact characteristics unknown. Patient does state she follows with Dr. Bunn and receives monthly injections but has never received chemotherapy. Patient states she did undergo surgery for her cancer issue. Patient denies any significant cardiac or pulmonary history. UA and urine culture ordered. At this time patient denies chest pain or shortness of breath. Patient denies any nausea vomiting or diarrhea. Patient denies any urinary burning or frequency. Patient is complaining of back discomfort. Family and patient requesting something to eat. Will order diet at this time On 08/24/2018 patient currently awake and alert. Patient is still complaining of some back pain. Denies any nausea vomiting or diarrhea. Patient denies any urinary burning or frequency. Patient denies chest pain or shortness breath. On 08/25/2018 patient is alert and oriented in no apparent distress she is still complaining of pain in the back she is complaining of severe difficulty sitting up and standing up, otherwise she denies any complaints there is no fever or chills no headache or dizziness no chest pain no shortness of breath no cough no nausea or vomiting no abdominal pain no diarrhea and no urinary symptoms On 08/26/2018 patient was seen and examined on the medical floor she is laying in bed she is still complaining of severe back pain, yesterday she had an episode of presyncope, she tried to get to the bathroom, and almost passed out blood pressure was low at 85/40, IV fluid was increased to 75 mL an hour. Today patient is alert and oriented she is complaining of back pain and denies any other complaints at this time there is no fever or chills no headache or dizziness no chest pain no shortness of breath no cough no nausea or vomiting no abdominal pain no diarrhea and no urinary symptoms On 08/27/2018 patient is currently resting in bed. at bedside. Patient is complaining of back pain denies any other complaints at this time. Patient currently has a back brace. Encourage patient to sit up in chair today. At this time patient denies chest pain or shortness of breath. Patient denies nausea vomiting or diarrhea. Patient denies any urinary burning or frequency On 08/28/2018 patient is currently resting in bed. Per patient is having trouble swallowing her food. At this time will make patient nothing by mouth. Will order speech eval for swallow evaluation and chest x-ray. Patient' s family also concerned that she has a low brace is not fitting correctly and getting put on correctly. Will reconsult orthopedic services to come evaluate back brace. At this time patient denies chest pain or shortness of breath. Patient denies cough. Patient denies nausea vomiting or diarrhea. Patient denies any urinary burning or frequency. 08/29/2018 patient currently resting in bed patient feels slightly improved. Patient waiting for bed availability at [facility] at likely to be available tomorrow. Patient's potassium remains low at 3.1. Will replace per protocol start patient on potassium 10 mEq daily. Patient also complaining of right eye itchiness. Will start patient on gentamicin drops for conjunctivitis. Patient denies chest pain or shortness of breath. Patient denies nausea vomiting and diarrhea. Patient denies any urinary burning or frequency Objective - Vital Signs Vital signs: Vital Signs Temp 97.9 F 12/20/18 05:00 Pulse 87 08/30/18 05:00 Resp 18 08/30/18 05:00 BP 148/69 08/30/18 05:00 Pulse Ox 96 08/30/18 05:00 Intake & Output 08/29/18 08/30/18 08/30/18 18:59 06:59 18:59 Intake Total 450 Balance 450 Intake: Intake, IV Titration 450 Amount Sodium Chloride 0.9% 1, 450 000 ml @ 75 mls/hr IV . [id number] [facility] Rx#:[id number] Other: Voiding Method Diaper Diaper Diaper Incontinent Incontinent Incontinent # Voids 1 2 # Bowel Movements 1 - Exam Head normocephalic Neck supple Lungs clear to auscultation bilaterally no wheezing or crackles Heart regular rate and rhythm S1-S2, no rub or gallop Abdomen is soft nontender nondistended positive bowel sounds no hepatosplenomegaly Extremities no edema Neuro alert and orientated to 3 - Labs CBC & Chem 7: 08/30/18 06:43 08/30/18 06:43 Labs: Abnormal Lab Results - Last 24 Hours (Table) 08/30/18 08/30/18 Range/Units 06:43 06:43 RBC 3.07 L (3.80-5.40) m/uL Hgb 9.2 L (11.4-16.0) gm/dL Hct 28.5 L (34.0-46.0) % Potassium 3.1 L (3.5-5.1) mmol/L Chloride 110 H (98-107) mmol/L Creatinine 1.40 H (0.52-1.04) mg/dL Glucose 100 H (74-99) mg/dL Calcium 8.1 L (8.4-10.2) mg/dL Albumin 2.7 L (3.5-5.0) g/dL Assessment and Plan Assessment: 1. Fall with compression fracture. CT of head and neck completed showing no acute fracture or dislocation evident cervical spine. No acute intracranial hemorrhage or midline shift is seen. Thoracic lumbar CT completed showing superior endplate compression deformities T12 and L1 of indeterminate age. These are interval from 2009. Mild superior posterior wall displacement between 3 and 4 mm into the spinal canal without cord contact or spinal canal stenosis at L1 and T12 levels. Disc bulging present of 3-4, L4 to 5 and L5 to S1. 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 Per orthopedic services patient should wear TLSO brace when sitting upright a greater than 45, during ambulation, during increase activity, working with physical therapy. Patient to follow-up outpatient with orthopedic service in approximately 2-3 weeks. Family concerned that brace is not fitting correctly. We'll ask orthopedic services to reevaluate brace. 2. Acute renal failure, improving creatinine is down from 1.83-1.58 continue with IV fluid. Current creatinine 1.54 3. 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 Exact characteristics unknown. Patient states she follows with Dr. Bunn in which she receives monthly injections. 5. Chronic diarrhea. Patient states diarrhea is from her known cancer 6. Hypothyroidism. Continue Synthroid 7. History of asthma no exacerbation at this time 8. History of GERD 9. Short-term memory loss 10. Physical debility patient is having significant difficulty sitting up and standing up, physical therapy following patient may need to be transferred to a rehab unit if not improving 11. Episode of presyncope with check echocardiogram and carotid Doppler will follow in a.m.. Carotid Doppler completed no significant evidence of hemodynamically stenosis in either carotid system seen. 12. Decreased appetite. Will consult dietary services at this time 13. Difficulty swallowing. Patient will be maintained nothing by mouth. Speech consult placed for swallow evaluation. Chest x-ray ordered 14. Hypokalemia. Potassium 3.2. Replace with IV replacement at this time due to nothing by mouth status. Potassium 10 mEq added daily 15. Right eye conjunctivitis. Will start patient on gentamycin dropps DVT prophylaxis heparin. GI prophylaxis Pepcid Patient waiting on bed availability at [facility]. Likely tomorrow per social work I performed an examination of the patient and discussed their management with the Nurse Practitioner. I have reviewed the Nurse Practitioner's notes and agree with the documented findings and plan of care
[2018-08-30] MEDS: POTASSIUM CHLORIDE ER 20 MEQ TAB.ER PO SCH ×2 (12:30→16:21)
[2018-08-30] MEDS: GENTAMICIN 0.3% OPHTH DROPS 5 ML BTL RIGHT EYE SCH (12:32)
[2018-08-30 12:48] VITALS: RESP 16
[2018-08-30] MEDS ORDERED: GENTAMICIN 0.3% OPHTH OINT 3.5 GM TUBE RIGHT EYE SCH (16:00)
[2018-08-30] MEDS: SODIUM CHLORIDE 0.9% 1,000 ML IV SCH ×2 (16:20→22:04)
[2018-08-31] MEDS: GENTAMICIN 0.3% OPHTH DROPS 5 ML BTL RIGHT EYE SCH ×4 (00:32→23:36)
[2018-08-31] MEDS: traMADol 50 MG TAB PO SCH ×4 (05:43→21:21)
[2018-08-31] MEDS: LEVOTHYROXINE 100 MCG TAB PO SCH (06:14)
[2018-08-31] MEDS: LEVOTHYROXINE 75 MCG TAB PO SCH (06:14)
[2018-08-31 06:22] LABS: Basophils % (A) 0 %; Eosinophils # (A) 0.3 k/uL (0-0.7); Eosinophils % (A) 4 %; HCT 27.6 % (34.0-46.0); HGB 8.7 gm/dL (11.4-16.0); Hypochromasia Slight; Lymphocytes # (A) 1.9 k/uL (1.0-4.8); Lymphocytes % (A) 22 %; MCH 29.3 pg (25.0-35.0); MCHC 31.6 g/dL (31.0-37.0); MCV 92.7 fL (80.0-100.0); Mean Platelet Volume 7.1; Monocytes # (A) 0.4 k/uL (0-1.0); Monocytes % (A) 5 %; Neutrophils # (A) 5.7 k/uL (1.3-7.7); Neutrophils % (A) 67 %; Platelet Count 345 k/uL (150-450); RBC 2.98 m/uL (3.80-5.40); RDW 14.2 % (11.5-15.5); WBC 8.5 k/uL (3.8-10.6)
[2018-08-31 06:37] LABS: Albumin 2.6 g/dL (3.5-5.0); Calcium 8.1 mg/dL (8.4-10.2); Potassium 3.7 mmol/L (3.5-5.1); Total Bilirubin 0.5 mg/dL (0.2-1.3); Total Protein 6.1 g/dL (6.3-8.2)
[2018-08-31] MEDS: POTASSIUM CHLORIDE ER 10 MEQ TAB.ER.PRT PO SCH (08:52)
[2018-08-31] MEDS: HEPARIN SODIUM,PORCINE 5,000 UNIT/ML 1 ML VIAL SQ SCH ×2 (08:52→21:21)
[2018-08-31] MEDS: FAMOTIDINE 20 MG TAB PO SCH (08:52)
[2018-08-31] MEDS: NYSTATIN 100,000 UNIT/GM POWD 15 GM TOPICAL SCH ×2 (08:53→21:22)
[2018-08-31] MEDS: FERROUS SULFATE 325 MG TAB PO SCH ×2 (08:54→21:21)
[2018-08-31] MEDS: CHOLESTYRAMINE (WITH SUGAR) 4 GM PACKET PO SCH ×4 (08:55→21:22)
--- NOTE | 2018-08-31 10:27 | P.PN ---
Subjective Progress Note Date: 08/31/18 This is a 87-year-old female patient of Dr. Pascual. Patient presented with complaints of fall. Patient states she was walking to her living room when she fell. Patient is supposed to be using walker which she was not at the time. Patient denies loss of consciousness. Patient states she's started to experience severe back pain. Per EMS report patient was draped in urine and feces upon arrival. Patient denies any recent illness or infection that could' ve precipitated the fall. Patient denies any burning with urination or recent cough or infection. Chest x-ray completed showing right upper lung reticular interstitial changes favor multifocal chronic fibrosis, correlate with old outside x-ray could be beneficial to confirm. CT of head and cervical spine completed showing no acute fracture or dislocation evident cervical spine. No acute intracranial hemorrhage or midline shift is seen. CT of thoracic lumbar spine without contrast completed showing superior endplate compression deformities T12 and L1 of indeterminate age. These are well-formed 2010. Mild superior posterior wall displacement between 3 and 4 mm into the spinal canal without cord contact spinal canal stenosis at the L1 and T12 levels. Disc bulging at L3 to 4, L4 to 5 and L5 to S1. Grade 1 spondylolisthesis of L5 anterior on S1 with disc uncovering. EKG completed showing normal sinus rhythm. Anterior infarct, age undetermined abnormal EKG. Patient states she does have a significant history of back surgeries including isidoro placement with Dr. Benitez. Dr. Benitez has been consulted for orthopedic surgery. Patient also reports a history of GI cancer. Exact characteristics unknown. Patient does state she follows with Dr. Bunn and receives monthly injections but has never received chemotherapy. Patient states she did undergo surgery for her cancer issue. Patient denies any significant cardiac or pulmonary history. UA and urine culture ordered. At this time patient denies chest pain or shortness of breath. Patient denies any nausea vomiting or diarrhea. Patient denies any urinary burning or frequency. Patient is complaining of back discomfort. Family and patient requesting something to eat. Will order diet at this time On 08/24/2018 patient currently awake and alert. Patient is still complaining of some back pain. Denies any nausea vomiting or diarrhea. Patient denies any urinary burning or frequency. Patient denies chest pain or shortness breath. On 08/25/2018 patient is alert and oriented in no apparent distress she is still complaining of pain in the back she is complaining of severe difficulty sitting up and standing up, otherwise she denies any complaints there is no fever or chills no headache or dizziness no chest pain no shortness of breath no cough no nausea or vomiting no abdominal pain no diarrhea and no urinary symptoms On 08/26/2018 patient was seen and examined on the medical floor she is laying in bed she is still complaining of severe back pain, yesterday she had an episode of presyncope, she tried to get to the bathroom, and almost passed out blood pressure was low at 85/40, IV fluid was increased to 75 mL an hour. Today patient is alert and oriented she is complaining of back pain and denies any other complaints at this time there is no fever or chills no headache or dizziness no chest pain no shortness of breath no cough no nausea or vomiting no abdominal pain no diarrhea and no urinary symptoms On 08/27/2018 patient is currently resting in bed. at bedside. Patient is complaining of back pain denies any other complaints at this time. Patient currently has a back brace. Encourage patient to sit up in chair today. At this time patient denies chest pain or shortness of breath. Patient denies nausea vomiting or diarrhea. Patient denies any urinary burning or frequency On 08/28/2018 patient is currently resting in bed. Per patient is having trouble swallowing her food. At this time will make patient nothing by mouth. Will order speech eval for swallow evaluation and chest x-ray. Patient' s family also concerned that she has a low brace is not fitting correctly and getting put on correctly. Will reconsult orthopedic services to come evaluate back brace. At this time patient denies chest pain or shortness of breath. Patient denies cough. Patient denies nausea vomiting or diarrhea. Patient denies any urinary burning or frequency. 08/30/2018 patient currently resting in bed patient feels slightly improved. Patient waiting for bed availability at [facility] at likely to be available tomorrow. Patient's potassium remains low at 3.1. Will replace per protocol start patient on potassium 10 mEq daily. Patient also complaining of right eye itchiness. Will start patient on gentamicin drops for conjunctivitis. Patient denies chest pain or shortness of breath. Patient denies nausea vomiting and diarrhea. Patient denies any urinary burning or frequency On 08/31/2018 patient is currently sitting up in chair. Has been at bedside. Patient waiting for bed availability at [facility]. Potassium improved to 3.7. This time patient denies chest pain or shortness of breath. Patient denies nausea vomiting or diarrhea. Patient denies any urinary burning or frequency. Objective - Vital Signs Vital signs: Vital Signs Temp 98.3 F 08/31/18 04:49 Pulse 75 08/31/18 04:49 Resp 16 08/31/18 04:49 BP 136/81 08/31/18 04:49 Pulse Ox 93 L 08/31/18 04:49 Intake & Output 08/30/18 08/31/18 08/31/18 18:59 06:59 18:59 Intake Total 1240 Balance 1240 Weight 63.503 kg Intake: Intake, IV Titration 650 Amount Sodium Chloride 0.9% 1, 650 000 ml @ 75 mls/hr IV . [id number] [facility] Rx#:[id number] Oral 590 Other: Voiding Method Diaper Diaper Diaper Incontinent Incontinent Incontinent # Voids 1 1 # Bowel Movements 1 1 - Exam Head normocephalic Neck supple Lungs clear to auscultation bilaterally no wheezing or crackles Heart regular rate and rhythm S1-S2, no rub or gallop Abdomen is soft nontender nondistended positive bowel sounds no hepatosplenomegaly Extremities no edema Neuro alert and orientated to 3 - Labs CBC & Chem 7: 08/31/18 05:17 08/31/18 05:17 Labs: Abnormal Lab Results - Last 24 Hours (Table) 08/31/18 08/31/18 Range/Units 05:17 05:17 RBC 2.98 L (3.80-5.40) m/uL Hgb 8.7 L (11.4-16.0) gm/dL Hct 27.6 L (34.0-46.0) % Chloride 113 H (98-107) mmol/L Creatinine 1.39 H (0.52-1.04) mg/dL Calcium 8.1 L (8.4-10.2) mg/dL Total Protein 6.1 L (6.3-8.2) g/dL Albumin 2.6 L (3.5-5.0) g/dL Assessment and Plan Assessment: 1. Fall with compression fracture. CT of head and neck completed showing no acute fracture or dislocation evident cervical spine. No acute intracranial hemorrhage or midline shift is seen. Thoracic lumbar CT completed showing superior endplate compression deformities T12 and L1 of indeterminate age. These are interval from 2010. Mild superior posterior wall displacement between 3 and 4 mm into the spinal canal without cord contact or spinal canal stenosis at L1 and T12 levels. Disc bulging present of 3-4, L4 to 5 and L5 to S1. 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 Per orthopedic services patient should wear TLSO brace when sitting upright a greater than 45, during ambulation, during increase activity, working with physical therapy. Patient to follow-up outpatient with orthopedic service in approximately 2-3 weeks. Family concerned that brace is not fitting correctly. We'll ask orthopedic services to reevaluate brace. 2. Acute renal failure, improving creatinine is down from 1.83-1.58 continue with IV fluid. Current creatinine 1.54 3. 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 Exact characteristics unknown. Patient states she follows with Dr. Bunn in which she receives monthly injections. 5. Chronic diarrhea. Patient states diarrhea is from her known cancer 6. Hypothyroidism. Continue Synthroid 7. History of asthma no exacerbation at this time 8. History of GERD 9. Short-term memory loss 10. Physical debility patient is having significant difficulty sitting up and standing up, physical therapy following patient may need to be transferred to a rehab unit if not improving 11. Episode of presyncope with check echocardiogram and carotid Doppler will follow in a.m.. Carotid Doppler completed no significant evidence of hemodynamically stenosis in either carotid system seen. 12. Decreased appetite. Will consult dietary services at this time 13. Difficulty swallowing. Patient will be maintained nothing by mouth. Speech consult placed for swallow evaluation. Chest x-ray ordered 14. Hypokalemia. Potassium 3.2. Replace with IV replacement at this time due to nothing by mouth status. Potassium 10 mEq added daily 15. Right eye conjunctivitis. Will start patient on gentamycin dropps 16. Anemia. Will order iron studies. ferrous sulfate has been added. Hemoglobin 8.7 DVT prophylaxis heparin. GI prophylaxis Pepcid Patient waiting on bed availability at [facility] I performed an examination of the patient and discussed their management with the Nurse Practitioner. I have reviewed the Nurse Practitioner's notes and agree with the documented findings and plan of care
[2018-08-31 16:58] LABS: Iron Saturation 11.3 (12.00-45.00)
[2018-08-31] MEDS: DIPHENOX-ATROP 2.5-0.025 MG 1 EACH TAB PO PRN (21:21)
[2018-09-01] MEDS: traMADol 50 MG TAB PO SCH ×4 (03:13→21:37)
[2018-09-01] MEDS: LEVOTHYROXINE 75 MCG TAB PO SCH (05:39)
[2018-09-01] MEDS: LEVOTHYROXINE 100 MCG TAB PO SCH (05:39)
[2018-09-01 07:37] LABS: Basophils % (A) 1 %; Eosinophils # (A) 0.3 k/uL (0-0.7); Eosinophils % (A) 4 %; HGB 9.5 gm/dL (11.4-16.0); Hypochromasia Slight; Lymphocytes # (A) 1.5 k/uL (1.0-4.8); Lymphocytes % (A) 20 %; MCH 28.9 pg (25.0-35.0); MCHC 30.6 g/dL (31.0-37.0); MCV 94.2 fL (80.0-100.0); Mean Platelet Volume 7.4; Monocytes # (A) 0.4 k/uL (0-1.0); Monocytes % (A) 6 %; Neutrophils # (A) 5.1 k/uL (1.3-7.7); Neutrophils % (A) 68 %; Platelet Count 387 k/uL (150-450); RBC 3.29 m/uL (3.80-5.40); RDW 14.5 % (11.5-15.5); WBC 7.5 k/uL (3.8-10.6)
[2018-09-01 07:54] LABS: Albumin 2.9 g/dL (3.5-5.0); Calcium 8.8 mg/dL (8.4-10.2); Potassium 4.2 mmol/L (3.5-5.1); Total Bilirubin 0.5 mg/dL (0.2-1.3); Total Protein 6.7 g/dL (6.3-8.2)
[2018-09-01] MEDS: GENTAMICIN 0.3% OPHTH DROPS 5 ML BTL RIGHT EYE SCH ×3 (08:24→23:39)
[2018-09-01] MEDS: POTASSIUM CHLORIDE ER 10 MEQ TAB.ER.PRT PO SCH (08:25)
[2018-09-01] MEDS: FERROUS SULFATE 325 MG TAB PO SCH ×2 (08:25→20:03)
[2018-09-01] MEDS: HEPARIN SODIUM,PORCINE 5,000 UNIT/ML 1 ML VIAL SQ SCH ×2 (08:25→20:03)
[2018-09-01] MEDS: FAMOTIDINE 20 MG TAB PO SCH (08:25)
[2018-09-01] MEDS: CHOLESTYRAMINE (WITH SUGAR) 4 GM PACKET PO SCH ×4 (08:26→20:03)
[2018-09-01] MEDS: NYSTATIN 100,000 UNIT/GM POWD 15 GM TOPICAL SCH ×2 (08:27→20:04)
--- NOTE | 2018-09-01 11:35 | P.PN ---
Subjective Progress Note Date: 09/01/18 This is a 87-year-old female patient of Dr. Pascual. Patient presented with complaints of fall. Patient states she was walking to her living room when she fell. Patient is supposed to be using walker which she was not at the time. Patient denies loss of consciousness. Patient states she's started to experience severe back pain. Per EMS report patient was draped in urine and feces upon arrival. Patient denies any recent illness or infection that could' ve precipitated the fall. Patient denies any burning with urination or recent cough or infection. Chest x-ray completed showing right upper lung reticular interstitial changes favor multifocal chronic fibrosis, correlate with old outside x-ray could be beneficial to confirm. CT of head and cervical spine completed showing no acute fracture or dislocation evident cervical spine. No acute intracranial hemorrhage or midline shift is seen. CT of thoracic lumbar spine without contrast completed showing superior endplate compression deformities T12 and L1 of indeterminate age. These are well-formed 2010. Mild superior posterior wall displacement between 3 and 4 mm into the spinal canal without cord contact spinal canal stenosis at the L1 and T12 levels. Disc bulging at L3 to 4, L4 to 5 and L5 to S1. Grade 1 spondylolisthesis of L5 anterior on S1 with disc uncovering. EKG completed showing normal sinus rhythm. Anterior infarct, age undetermined abnormal EKG. Patient states she does have a significant history of back surgeries including isidoro placement with Dr. Benitez. Dr. Benitez has been consulted for orthopedic surgery. Patient also reports a history of GI cancer. Exact characteristics unknown. Patient does state she follows with Dr. Bunn and receives monthly injections but has never received chemotherapy. Patient states she did undergo surgery for her cancer issue. Patient denies any significant cardiac or pulmonary history. UA and urine culture ordered. At this time patient denies chest pain or shortness of breath. Patient denies any nausea vomiting or diarrhea. Patient denies any urinary burning or frequency. Patient is complaining of back discomfort. Family and patient requesting something to eat. Will order diet at this time On 08/24/2018 patient currently awake and alert. Patient is still complaining of some back pain. Denies any nausea vomiting or diarrhea. Patient denies any urinary burning or frequency. Patient denies chest pain or shortness breath. On 08/25/2018 patient is alert and oriented in no apparent distress she is still complaining of pain in the back she is complaining of severe difficulty sitting up and standing up, otherwise she denies any complaints there is no fever or chills no headache or dizziness no chest pain no shortness of breath no cough no nausea or vomiting no abdominal pain no diarrhea and no urinary symptoms On 08/26/2018 patient was seen and examined on the medical floor she is laying in bed she is still complaining of severe back pain, yesterday she had an episode of presyncope, she tried to get to the bathroom, and almost passed out blood pressure was low at 85/40, IV fluid was increased to 75 mL an hour. Today patient is alert and oriented she is complaining of back pain and denies any other complaints at this time there is no fever or chills no headache or dizziness no chest pain no shortness of breath no cough no nausea or vomiting no abdominal pain no diarrhea and no urinary symptoms On 08/27/2018 patient is currently resting in bed. at bedside. Patient is complaining of back pain denies any other complaints at this time. Patient currently has a back brace. Encourage patient to sit up in chair today. At this time patient denies chest pain or shortness of breath. Patient denies nausea vomiting or diarrhea. Patient denies any urinary burning or frequency On 08/28/2018 patient is currently resting in bed. Per patient is having trouble swallowing her food. At this time will make patient nothing by mouth. Will order speech eval for swallow evaluation and chest x-ray. Patient' s family also concerned that she has a low brace is not fitting correctly and getting put on correctly. Will reconsult orthopedic services to come evaluate back brace. At this time patient denies chest pain or shortness of breath. Patient denies cough. Patient denies nausea vomiting or diarrhea. Patient denies any urinary burning or frequency. 08/30/2018 patient currently resting in bed patient feels slightly improved. Patient waiting for bed availability at [facility] at likely to be available tomorrow. Patient's potassium remains low at 3.1. Will replace per protocol start patient on potassium 10 mEq daily. Patient also complaining of right eye itchiness. Will start patient on gentamicin drops for conjunctivitis. Patient denies chest pain or shortness of breath. Patient denies nausea vomiting and diarrhea. Patient denies any urinary burning or frequency On 08/31/2018 patient is currently sitting up in chair. Has been at bedside. Patient waiting for bed availability at [facility]. Potassium improved to 3.7. This time patient denies chest pain or shortness of breath. Patient denies nausea vomiting or diarrhea. Patient denies any urinary burning or frequency. On 09/05/2018 patient is currently resting in bed. The case with disease case manager rn. Patient likely not to get placement until Monday. An attempt patient denies chest pain or shortness breath. Denies nausea vomiting diarrhea. Patient denies any urinary burning or frequency Objective - Vital Signs Vital signs: Vital Signs Temp 98.1 F 09/01/18 05:00 Pulse 74 09/01/18 08:00 Resp 16 09/01/18 08:00 BP 152/70 09/01/18 05:00 Pulse Ox 93 L 09/01/18 08:30 Intake & Output 08/31/18 09/01/18 09/01/18 18:59 06:59 18:59 Intake Total 600 600 240 Balance 600 600 240 Weight 63.503 kg Intake: Intake, IV Titration 600 Amount Sodium Chloride 0.9% 1, 600 000 ml @ 75 mls/hr IV . [id number] [facility] Rx#:[id number] Oral 600 240 Other: Voiding Method Diaper Diaper Diaper Incontinent Incontinent Incontinent # Voids 1 1 - Exam Head normocephalic Neck supple Lungs clear to auscultation bilaterally no wheezing or crackles Heart regular rate and rhythm S1-S2, no rub or gallop Abdomen is soft nontender nondistended positive bowel sounds no hepatosplenomegaly Extremities no edema Neuro alert and orientated to 3 - Labs CBC & Chem 7: 09/01/18 06:17 09/01/18 06:17 Labs: Abnormal Lab Results - Last 24 Hours (Table) 08/31/18 09/01/18 09/01/18 Range/Units 05:17 06:17 06:17 RBC 3.29 L (3.80-5.40) m/uL Hgb 9.5 L (11.4-16.0) gm/dL Hct 31.0 L (34.0-46.0) % MCHC 30.6 L (31.0-37.0) g/dL Chloride 110 H (98-107) mmol/L Creatinine 1.52 H (0.52-1.04) mg/dL Iron 26 L (50-170) ug/dL Iron Saturation 11.30 L (12.00-45.00) Ferritin 419.5 H (10.0-291.0) ng/mL Alkaline Phosphatase 133 H (38-126) U/L Albumin 2.9 L (3.5-5.0) g/dL Assessment and Plan Assessment: 1. Fall with compression fracture. CT of head and neck completed showing no acute fracture or dislocation evident cervical spine. No acute intracranial hemorrhage or midline shift is seen. Thoracic lumbar CT completed showing superior endplate compression deformities T12 and L1 of indeterminate age. These are interval from 2009. Mild superior posterior wall displacement between 3 and 4 mm into the spinal canal without cord contact or spinal canal stenosis at L1 and T12 levels. Disc bulging present of 3-4, L4 to 5 and L5 to S1. 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 Per orthopedic services patient should wear TLSO brace when sitting upright a greater than 45, during ambulation, during increase activity, working with physical therapy. Patient to follow-up outpatient with orthopedic service in approximately 2-3 weeks. Family concerned that brace is not fitting correctly. We'll ask orthopedic services to reevaluate brace. 2. Acute renal failure, improving creatinine is down from 1.83-1.58 continue with IV fluid. Current creatinine 1.54 3. 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 Exact characteristics unknown. Patient states she follows with Dr. Bunn in which she receives monthly injections. 5. Chronic diarrhea. Patient states diarrhea is from her known cancer. C. diff sample ordered 6. Hypothyroidism. Continue Synthroid 7. History of asthma no exacerbation at this time 8. History of GERD 9. Short-term memory loss 10. Physical debility patient is having significant difficulty sitting up and standing up, physical therapy following patient may need to be transferred to a rehab unit if not improving 11. Episode of presyncope with check echocardiogram and carotid Doppler will follow in a.m.. Carotid Doppler completed no significant evidence of hemodynamically stenosis in either carotid system seen. 12. Decreased appetite. Will consult dietary services at this time 13. Difficulty swallowing. Patient will be maintained nothing by mouth. Speech consult placed for swallow evaluation. Chest x-ray ordered 14. Hypokalemia. Potassium 3.2. Replace with IV replacement at this time due to nothing by mouth status. Potassium 10 mEq added daily 15. Right eye conjunctivitis. Will start patient on gentamycin dropps 16. Iron Deficiency Anemia. Will order iron studies. ferrous sulfate has been added. HemoGlobin 9.5 DVT prophylaxis heparin. GI prophylaxis Pepcid Patient waiting on bed availability at [facility]. I performed an examination of the patient and discussed their management with the Nurse Practitioner. I have reviewed the Nurse Practitioner's notes and agree with the documented findings and plan of care
[2018-09-01] MEDS: SODIUM CHLORIDE 0.9% 1,000 ML IV SCH (17:43)
[2018-09-02] MEDS: traMADol 50 MG TAB PO SCH ×4 (04:30→20:34)
[2018-09-02] MEDS: LEVOTHYROXINE 75 MCG TAB PO SCH (04:31)
[2018-09-02] MEDS: LEVOTHYROXINE 100 MCG TAB PO SCH (04:32)
[2018-09-02 07:19] LABS: Basophils % (A) 1 %; Eosinophils # (A) 0.2 k/uL (0-0.7); Eosinophils % (A) 3 %; HCT 30.2 % (34.0-46.0); HGB 9.9 gm/dL (11.4-16.0); Hypochromasia Moderate; Lymphocytes # (A) 1.8 k/uL (1.0-4.8); Lymphocytes % (A) 25 %; MCH 30.9 pg (25.0-35.0); MCHC 32.7 g/dL (31.0-37.0); MCV 94.7 fL (80.0-100.0); Mean Platelet Volume 6.6; Monocytes # (A) 0.4 k/uL (0-1.0); Monocytes % (A) 5 %; Neutrophils # (A) 4.8 k/uL (1.3-7.7); Neutrophils % (A) 65 %; Platelet Count 375 k/uL (150-450); RBC 3.19 m/uL (3.80-5.40); RDW 14.3 % (11.5-15.5); WBC 7.5 k/uL (3.8-10.6)
[2018-09-02] MEDS: POTASSIUM CHLORIDE ER 10 MEQ TAB.ER.PRT PO SCH (07:20)
[2018-09-02] MEDS: CHOLESTYRAMINE (WITH SUGAR) 4 GM PACKET PO SCH ×4 (07:20→20:34)
[2018-09-02] MEDS: FAMOTIDINE 20 MG TAB PO SCH (07:20)
[2018-09-02] MEDS: HEPARIN SODIUM,PORCINE 5,000 UNIT/ML 1 ML VIAL SQ SCH ×2 (07:21→20:34)
[2018-09-02] MEDS: GENTAMICIN 0.3% OPHTH DROPS 5 ML BTL RIGHT EYE SCH ×2 (07:21→17:28)
[2018-09-02] MEDS: FERROUS SULFATE 325 MG TAB PO SCH ×2 (07:21→20:35)
[2018-09-02] MEDS: NYSTATIN 100,000 UNIT/GM POWD 15 GM TOPICAL SCH ×2 (07:22→20:38)
--- NOTE | 2018-09-02 12:45 | P.PN ---
Subjective Progress Note Date: 09/02/18 This is a 87-year-old female patient of Dr. Pascual. Patient presented with complaints of fall. Patient states she was walking to her living room when she fell. Patient is supposed to be using walker which she was not at the time. Patient denies loss of consciousness. Patient states she's started to experience severe back pain. Per EMS report patient was draped in urine and feces upon arrival. Patient denies any recent illness or infection that could' ve precipitated the fall. Patient denies any burning with urination or recent cough or infection. Chest x-ray completed showing right upper lung reticular interstitial changes favor multifocal chronic fibrosis, correlate with old outside x-ray could be beneficial to confirm. CT of head and cervical spine completed showing no acute fracture or dislocation evident cervical spine. No acute intracranial hemorrhage or midline shift is seen. CT of thoracic lumbar spine without contrast completed showing superior endplate compression deformities T12 and L1 of indeterminate age. These are well-formed 2010. Mild superior posterior wall displacement between 3 and 4 mm into the spinal canal without cord contact spinal canal stenosis at the L1 and T12 levels. Disc bulging at L3 to 4, L4 to 5 and L5 to S1. Grade 1 spondylolisthesis of L5 anterior on S1 with disc uncovering. EKG completed showing normal sinus rhythm. Anterior infarct, age undetermined abnormal EKG. Patient states she does have a significant history of back surgeries including isidoro placement with Dr. Benitez. Dr. Benitez has been consulted for orthopedic surgery. Patient also reports a history of GI cancer. Exact characteristics unknown. Patient does state she follows with Dr. Bunn and receives monthly injections but has never received chemotherapy. Patient states she did undergo surgery for her cancer issue. Patient denies any significant cardiac or pulmonary history. UA and urine culture ordered. At this time patient denies chest pain or shortness of breath. Patient denies any nausea vomiting or diarrhea. Patient denies any urinary burning or frequency. Patient is complaining of back discomfort. Family and patient requesting something to eat. Will order diet at this time On 08/24/2018 patient currently awake and alert. Patient is still complaining of some back pain. Denies any nausea vomiting or diarrhea. Patient denies any urinary burning or frequency. Patient denies chest pain or shortness breath. On 08/25/2018 patient is alert and oriented in no apparent distress she is still complaining of pain in the back she is complaining of severe difficulty sitting up and standing up, otherwise she denies any complaints there is no fever or chills no headache or dizziness no chest pain no shortness of breath no cough no nausea or vomiting no abdominal pain no diarrhea and no urinary symptoms On 08/26/2018 patient was seen and examined on the medical floor she is laying in bed she is still complaining of severe back pain, yesterday she had an episode of presyncope, she tried to get to the bathroom, and almost passed out blood pressure was low at 85/40, IV fluid was increased to 75 mL an hour. Today patient is alert and oriented she is complaining of back pain and denies any other complaints at this time there is no fever or chills no headache or dizziness no chest pain no shortness of breath no cough no nausea or vomiting no abdominal pain no diarrhea and no urinary symptoms On 08/26/2018 patient was seen and examined on the medical floor she is laying in bed she is still complaining of severe back pain, yesterday she had an episode of presyncope, she tried to get to the bathroom, and almost passed out blood pressure was low at 85/40, IV fluid was increased to 75 mL an hour. Today patient is alert and oriented she is complaining of back pain and denies any other complaints at this time there is no fever or chills no headache or dizziness no chest pain no shortness of breath no cough no nausea or vomiting no abdominal pain no diarrhea and no urinary symptoms On 08/27/2018 patient is currently resting in bed. at bedside. Patient is complaining of back pain denies any other complaints at this time. Patient currently has a back brace. Encourage patient to sit up in chair today. At this time patient denies chest pain or shortness of breath. Patient denies nausea vomiting or diarrhea. Patient denies any urinary burning or frequency On 08/28/2018 patient is currently resting in bed. Per patient is having trouble swallowing her food. At this time will make patient nothing by mouth. Will order speech eval for swallow evaluation and chest x-ray. Patient' s family also concerned that she has a low brace is not fitting correctly and getting put on correctly. Will reconsult orthopedic services to come evaluate back brace. At this time patient denies chest pain or shortness of breath. Patient denies cough. Patient denies nausea vomiting or diarrhea. Patient denies any urinary burning or frequency. 08/30/2018 patient currently resting in bed patient feels slightly improved. Patient waiting for bed availability at [facility] at likely to be available tomorrow. Patient's potassium remains low at 3.1. Will replace per protocol start patient on potassium 10 mEq daily. Patient also complaining of right eye itchiness. Will start patient on gentamicin drops for conjunctivitis. Patient denies chest pain or shortness of breath. Patient denies nausea vomiting and diarrhea. Patient denies any urinary burning or frequency On 08/31/2018 patient is currently sitting up in chair. Has been at bedside. Patient waiting for bed availability at [facility]. Potassium improved to 3.7. This time patient denies chest pain or shortness of breath. Patient denies nausea vomiting or diarrhea. Patient denies any urinary burning or frequency. On 09/01/2018 patient is currently resting in bed. The case with upper caser. Patient likely not to get placement until Monday. An attempt patient denies chest pain or shortness breath. Denies nausea vomiting diarrhea. Patient denies any urinary burning or frequency. On 09/02/2018 patient is alert and oriented in no apparent distress she denies any pain while lying down in bed she has significant pain when she is sitting up there is no fever or chills no headache or dizziness no chest pain no shortness of breath no cough no nausea or vomiting no abdominal pain, patient and family are still reporting diarrhea with stool incontinence, stool sample for C. diff has not been collected yet, continue patient in isolation. Objective - Vital Signs Vital signs: Vital Signs Temp 98.1 F 09/02/18 05:00 Pulse 80 09/02/18 07:34 Resp 16 09/02/18 07:34 BP 160/62 09/02/18 05:00 Pulse Ox 96 09/02/18 05:00 Intake & Output 09/01/18 09/02/18 09/02/18 18:59 06:59 18:59 Intake Total 1640 1959 240 Balance 1640 1960 240 Weight 63.503 kg Intake: Intake, IV Titration 200 300 Amount Sodium Chloride 0.9% 1, 200 300 000 ml @ 75 mls/hr IV . [id number] [facility] Rx#:[id number] Oral 1440 1660 240 Other: Voiding Method Diaper Diaper Diaper Incontinent Incontinent Incontinent # Voids 1 3 1 # Bowel Movements 0 - Exam Head normocephalic Neck supple Lungs clear to auscultation bilaterally no wheezing or crackles Heart regular rate and rhythm S1-S2, no rub or gallop Abdomen is soft nontender nondistended positive bowel sounds no hepatosplenomegaly Extremities no edema Neuro alert and orientated to 3 - Labs CBC & Chem 7: 09/02/18 06:33 09/01/18 06:17 Labs: Abnormal Lab Results - Last 24 Hours (Table) 09/02/18 Range/Units 06:33 RBC 3.19 L (3.80-5.40) m/uL Hgb 9.9 L (11.4-16.0) gm/dL Hct 30.2 L (34.0-46.0) % Assessment and Plan Plan: 1. Fall with compression fracture. CT of head and neck completed showing no acute fracture or dislocation evident cervical spine. No acute intracranial hemorrhage or midline shift is seen. Thoracic lumbar CT completed showing superior endplate compression deformities T12 and L1 of indeterminate age. These are interval from 2009. Mild superior posterior wall displacement between 3 and 4 mm into the spinal canal without cord contact or spinal canal stenosis at L1 and T12 levels. Disc bulging present of 3-4, L4 to 5 and L5 to S1. 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 Per orthopedic services patient should wear TLSO brace when sitting upright a greater than 45, during ambulation, during increase activity, working with physical therapy. Patient to follow-up outpatient with orthopedic service in approximately 2-3 weeks. Family concerned that brace is not fitting correctly. We'll ask orthopedic services to reevaluate brace. 2. Acute renal failure, improving creatinine is down from 1.83-1.58 continue with IV fluid. Current creatinine 1.54 3. 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 Exact characteristics unknown. Patient states she follows with Dr. Bunn in which she receives monthly injections. 5. Chronic diarrhea. Patient states diarrhea is from her known cancer. C. diff sample ordered 6. Hypothyroidism. Continue Synthroid 7. History of asthma no exacerbation at this time 8. History of GERD 9. Short-term memory loss 10. Physical debility patient is having significant difficulty sitting up and standing up, physical therapy following patient may need to be transferred to a rehab unit if not improving 11. Episode of presyncope with check echocardiogram and carotid Doppler will follow in a.m.. Carotid Doppler completed no significant evidence of hemodynamically stenosis in either carotid system seen. 12. Decreased appetite. Will consult dietary services at this time 13. Difficulty swallowing. Patient will be maintained nothing by mouth. Speech consult placed for swallow evaluation. Chest x-ray ordered 14. Hypokalemia. Potassium 3.2. Replace with IV replacement at this time due to nothing by mouth status. Potassium 10 mEq added daily 15. Right eye conjunctivitis. Will start patient on gentamycin dropps 16. Iron Deficiency Anemia. Will order iron studies. ferrous sulfate has been added. HemoGlobin 9.5 DVT prophylaxis heparin. GI prophylaxis Pepcid Patient waiting on bed availability at [facility].
[2018-09-02] MEDS: SODIUM CHLORIDE 0.9% 1,000 ML IV SCH (17:18)
[2018-09-03] MEDS: GENTAMICIN 0.3% OPHTH DROPS 5 ML BTL RIGHT EYE SCH ×2 (00:58→09:10)
[2018-09-03] MEDS: traMADol 50 MG TAB PO SCH ×2 (03:18→09:10)
[2018-09-03] MEDS: LEVOTHYROXINE 75 MCG TAB PO SCH (05:19)
[2018-09-03] MEDS: LEVOTHYROXINE 100 MCG TAB PO SCH (05:19)
[2018-09-03] MEDS: CHOLESTYRAMINE (WITH SUGAR) 4 GM PACKET PO SCH ×2 (09:11→13:07)
[2018-09-03] MEDS: FAMOTIDINE 20 MG TAB PO SCH (09:11)
[2018-09-03] MEDS: HEPARIN SODIUM,PORCINE 5,000 UNIT/ML 1 ML VIAL SQ SCH (09:11)
[2018-09-03] MEDS: FERROUS SULFATE 325 MG TAB PO SCH (09:11)
[2018-09-03] MEDS: NYSTATIN 100,000 UNIT/GM POWD 15 GM TOPICAL SCH (09:12)
[2018-09-03] MEDS: POTASSIUM CHLORIDE ER 10 MEQ TAB.ER.PRT PO SCH (09:13)
--- NOTE | 2018-09-03 12:10 | P.PN ---
Subjective Progress Note Date: 09/03/18 This is a 87-year-old female patient of Dr. Pascual. Patient presented with complaints of fall. Patient states she was walking to her living room when she fell. Patient is supposed to be using walker which she was not at the time. Patient denies loss of consciousness. Patient states she's started to experience severe back pain. Per EMS report patient was draped in urine and feces upon arrival. Patient denies any recent illness or infection that could' ve precipitated the fall. Patient denies any burning with urination or recent cough or infection. Chest x-ray completed showing right upper lung reticular interstitial changes favor multifocal chronic fibrosis, correlate with old outside x-ray could be beneficial to confirm. CT of head and cervical spine completed showing no acute fracture or dislocation evident cervical spine. No acute intracranial hemorrhage or midline shift is seen. CT of thoracic lumbar spine without contrast completed showing superior endplate compression deformities T12 and L1 of indeterminate age. These are well-formed 2010. Mild superior posterior wall displacement between 3 and 4 mm into the spinal canal without cord contact spinal canal stenosis at the L1 and T12 levels. Disc bulging at L3 to 4, L4 to 5 and L5 to S1. Grade 1 spondylolisthesis of L5 anterior on S1 with disc uncovering. EKG completed showing normal sinus rhythm. Anterior infarct, age undetermined abnormal EKG. Patient states she does have a significant history of back surgeries including isidoro placement with Dr. Benitez. Dr. Benitez has been consulted for orthopedic surgery. Patient also reports a history of GI cancer. Exact characteristics unknown. Patient does state she follows with Dr. Bunn and receives monthly injections but has never received chemotherapy. Patient states she did undergo surgery for her cancer issue. Patient denies any significant cardiac or pulmonary history. UA and urine culture ordered. At this time patient denies chest pain or shortness of breath. Patient denies any nausea vomiting or diarrhea. Patient denies any urinary burning or frequency. Patient is complaining of back discomfort. Family and patient requesting something to eat. Will order diet at this time On 08/24/2018 patient currently awake and alert. Patient is still complaining of some back pain. Denies any nausea vomiting or diarrhea. Patient denies any urinary burning or frequency. Patient denies chest pain or shortness breath. On 08/25/2018 patient is alert and oriented in no apparent distress she is still complaining of pain in the back she is complaining of severe difficulty sitting up and standing up, otherwise she denies any complaints there is no fever or chills no headache or dizziness no chest pain no shortness of breath no cough no nausea or vomiting no abdominal pain no diarrhea and no urinary symptoms On 08/26/2018 patient was seen and examined on the medical floor she is laying in bed she is still complaining of severe back pain, yesterday she had an episode of presyncope, she tried to get to the bathroom, and almost passed out blood pressure was low at 85/40, IV fluid was increased to 75 mL an hour. Today patient is alert and oriented she is complaining of back pain and denies any other complaints at this time there is no fever or chills no headache or dizziness no chest pain no shortness of breath no cough no nausea or vomiting no abdominal pain no diarrhea and no urinary symptoms On 08/27/2018 patient is currently resting in bed. at bedside. Patient is complaining of back pain denies any other complaints at this time. Patient currently has a back brace. Encourage patient to sit up in chair today. At this time patient denies chest pain or shortness of breath. Patient denies nausea vomiting or diarrhea. Patient denies any urinary burning or frequency On 08/28/2018 patient is currently resting in bed. Per patient is having trouble swallowing her food. At this time will make patient nothing by mouth. Will order speech eval for swallow evaluation and chest x-ray. Patient' s family also concerned that she has a low brace is not fitting correctly and getting put on correctly. Will reconsult orthopedic services to come evaluate back brace. At this time patient denies chest pain or shortness of breath. Patient denies cough. Patient denies nausea vomiting or diarrhea. Patient denies any urinary burning or frequency. 08/30/2018 patient currently resting in bed patient feels slightly improved. Patient waiting for bed availability at [facility] at likely to be available tomorrow. Patient's potassium remains low at 3.1. Will replace per protocol start patient on potassium 10 mEq daily. Patient also complaining of right eye itchiness. Will start patient on gentamicin drops for conjunctivitis. Patient denies chest pain or shortness of breath. Patient denies nausea vomiting and diarrhea. Patient denies any urinary burning or frequency On 08/31/2018 patient is currently sitting up in chair. Has been at bedside. Patient waiting for bed availability at [facility]. Potassium improved to 3.7. This time patient denies chest pain or shortness of breath. Patient denies nausea vomiting or diarrhea. Patient denies any urinary burning or frequency. On 09/01/2018 patient is currently resting in bed. The case with counter caser. Patient likely not to get placement until Monday. An attempt patient denies chest pain or shortness breath. Denies nausea vomiting diarrhea. Patient denies any urinary burning or frequency On 09/02/2018 patient is alert and oriented in no apparent distress she denies any pain while lying down in bed she has significant pain when she is sitting up there is no fever or chills no headache or dizziness no chest pain no shortness of breath no cough no nausea or vomiting no abdominal pain, patient and family are still reporting diarrhea with stool incontinence, stool sample for C. diff has not been collected yet, continue patient in isolation. On 09/03/2018 patient is alert and oriented 3. Patient to go to [facility] ECF placement today spoke Dr. milner. Patient can hold off on injectable medication until after completion of ECF. At this time patient denies chest pain or shortness breath. Patient denies nausea vomiting or diarrhea. Patient denies any urinary burning or frequency Objective - Vital Signs Vital signs: Vital Signs Temp 97.9 F 09/03/18 05:00 Pulse 85 09/03/18 05:00 Resp 16 09/03/18 05:00 BP 161/66 09/03/18 05:00 Pulse Ox 98 09/03/18 05:00 Intake & Output 09/02/18 09/03/18 09/03/18 18:59 06:59 18:59 Intake Total 2910 Balance 2910 Intake: Intake, IV Titration 450 Amount Sodium Chloride 0.9% 1, 450 000 ml @ 75 mls/hr IV . [id number] [facility] Rx#:[id number] Oral 2460 Other: Voiding Method Diaper Diaper Diaper Incontinent Incontinent Incontinent # Voids 3 1 # Bowel Movements 1 1 - Exam Head normocephalic Neck supple Lungs clear to auscultation bilaterally no wheezing or crackles Heart regular rate and rhythm S1-S2, no rub or gallop Abdomen is soft nontender nondistended positive bowel sounds no hepatosplenomegaly Extremities no edema Neuro alert and orientated to 3 - Labs CBC & Chem 7: 09/02/18 06:33 09/01/18 06:17 Labs: Microbiology - Last 24 Hours (Table) 09/02/18 15:37 Stool Culture - Preliminary Stool Assessment and Plan Assessment: 1. Fall with compression fracture. CT of head and neck completed showing no acute fracture or dislocation evident cervical spine. No acute intracranial hemorrhage or midline shift is seen. Thoracic lumbar CT completed showing superior endplate compression deformities T12 and L1 of indeterminate age. These are interval from 2009. Mild superior posterior wall displacement between 3 and 4 mm into the spinal canal without cord contact or spinal canal stenosis at L1 and T12 levels. Disc bulging present of 3-4, L4 to 5 and L5 to S1. 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 Per orthopedic services patient should wear TLSO brace when sitting upright a greater than 45, during ambulation, during increase activity, working with physical therapy. Patient to follow-up outpatient with orthopedic service in approximately 2-3 weeks. Family concerned that brace is not fitting correctly. We'll ask orthopedic services to reevaluate brace. 2. Acute renal failure, improving creatinine is down from 1.83-1.58 continue with IV fluid. Current creatinine 1.54 3. 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 Exact characteristics unknown. Patient states she follows with Dr. Bunn in which she receives monthly injections. Discussed with Dr. law hussein for patient to skip month until after completion of ECF 5. Chronic diarrhea. Patient states diarrhea is from her known cancer. C. diff sample ordered 6. Hypothyroidism. Continue Synthroid 7. History of asthma no exacerbation at this time 8. History of GERD 9. Short-term memory loss 10. Physical debility patient is having significant difficulty sitting up and standing up, physical therapy following patient may need to be transferred to a rehab unit if not improving 11. Episode of presyncope with check echocardiogram and carotid Doppler will follow in a.m.. Carotid Doppler completed no significant evidence of hemodynamically stenosis in either carotid system seen. 12. Decreased appetite. Will consult dietary services at this time 13. Difficulty swallowing. Patient will be maintained nothing by mouth. Speech consult placed for swallow evaluation. Chest x-ray ordered 14. Hypokalemia. Potassium 3.2. Replace with IV replacement at this time due to nothing by mouth status. Potassium 10 mEq added daily 15. Right eye conjunctivitis. Will start patient on gentamycin dropps 16. Iron Deficiency Anemia. Will order iron studies. ferrous sulfate has been added. HemoGlobin 9.5 DVT prophylaxis heparin. GI prophylaxis Pepcid Patient waiting on bed availability at [facility]. I performed an examination of the patient and discussed their management with the Nurse Practitioner. I have reviewed the Nurse Practitioner's notes and agree with the documented findings and plan of care
[2018-09-03 12:43] VITALS: BP 144/75; PULSE 94; TEMP 98.7
== END 2018-09-03 15:20 | DRG 552 ==
LOC: EC 10:08 → INTOOBSV 15:24 → 3NMEDONC 15:24 → OBSVTOIN 08-26 15:33
PROVIDERS: ADMIT Internal Medicine; ATTEND Internal Medicine
DX: S22.089A Unspecified fracture of T11-T12 vertebra, initial encounter for closed fracture (principal); S32.019A Unspecified fracture of first lumbar vertebra, initial encounter for closed fracture; E87.2 Acidosis; N17.9 Acute kidney failure, unspecified; W19.XXXA Unspecified fall, initial encounter; M51.26 Other intervertebral disc displacement, lumbar region; M43.17 Spondylolisthesis, lumbosacral region; M50.321 Other cervical disc degeneration at C4-C5 level; D50.9 Iron deficiency anemia, unspecified; E03.9 Hypothyroidism, unspecified; E87.6 Hypokalemia; K52.89 Other specified noninfective gastroenteritis and colitis; H10.9 Unspecified conjunctivitis; R13.10 Dysphagia, unspecified; J45.909 Unspecified asthma, uncomplicated; K21.9 Gastro-esophageal reflux disease without esophagitis; M19.90 Unspecified osteoarthritis, unspecified site; K44.9 Diaphragmatic hernia without obstruction or gangrene; Z85.828 Personal history of other malignant neoplasm of skin; Z87.440 Personal history of urinary (tract) infections; Y92.009 Unspecified place in unspecified non-institutional (private) residence as the place of occurrence of the external cause; Z90.710 Acquired absence of both cervix and uterus; Z98.42 Cataract extraction status, left eye; Z98.41 Cataract extraction status, right eye; Z90.49 Acquired absence of other specified parts of digestive tract; Z79.899 Other long term (current) drug therapy; Z79.890 Hormone replacement therapy; Z88.5 Allergy status to narcotic agent; Z83.3 Family history of diabetes mellitus; Z85.00 Personal history of malignant neoplasm of unspecified digestive organ; Z75.1 Person awaiting admission to adequate facility elsewhere
CPT/HCPCS: 36415; 70450; 71046; 72125; 72128; 72131; 80053; 80306; 81001; 82140; 82550; 82553; 82728; 82803; 83540; 83550; 83605; 84484; 85025; 85610; 85730; 87045; 87046; 87086; 87324; 93005; 93306; 93880; 94760; 96360; 99285

== ENCOUNTER 2018-10-19 18:28 | Inpatient (IN) | payer MEDICARE ==
[2018-10-19] MEDS ORDERED: SODIUM CHLORIDE 0.9% 500 ML 500 ML IV STA (19:23)
--- NOTE | 2018-10-19 19:31 | ED ---
Weakness HPI - General Source: EMS Mode of arrival: EMS Limitations: no limitations <Alia Rehman - Last Filed: 10/19/18 21:50> <Jaydon Tinsley - Last Filed: 10/21/18 07:17> - General Chief complaint: Weakness Stated complaint: Weakness Time Seen by Provider: 10/19/18 18:33 - History of Present Illness Initial comments: 87-year-old female patient is brought to the emergency department today for evaluation of weakness and lack of appetite. Family states that patient was recently admitted to rehabilitation facility after sustaining a fall with compression fractures. States since coming home from the facility she has had decreased ambulation, not eating or drinking, and has been becoming progressively more weak. The primary care physician and family members had discussed placing the patient on hospice a couple of days ago. They discussed with the patient and she was agreeable. Today she changed her mind and wanted to come to the hospital for further evaluation. Patient states that she feels weak and fatigued. States that she has no appetite. She denies any abdominal pain, chest pain, shortness of breath, or dizziness. Denies any headache, blurred vision, double vision. Patient is incontinent of bowel and bladder since the compression fracture. Patient has chronic diarrhea since having colon cancer Patient denies any recent rash, back pain, numbness, tingling, headache, visual changes, or any other complaints. (Alia Rehman) - Related Data Home Medications Medication Instructions Recorded Confirmed Ergocalciferol (Vitamin D2) 50,000 unit PO Q7D 08/23/18 10/19/18 [Vitamin D2] Levothyroxine Sodium [Synthroid] 175 mcg PO DAILY 08/23/18 10/19/18 fentaNYL 25MCG/HR PATCH [Duragesic 1 patch TRANSDERM Q72H 10/19/18 10/19/18 25MCG/HR] traMADol HCl [Ultram] 50 mg PO DAILY PRN 10/19/18 10/19/18 Previous Rx's Medication Instructions Recorded Potassium Chloride ER [K-Dur 10] 10 meq PO DAILY tab.er.prt 08/30/18 Allergies Allergy/AdvReac Type Severity Reaction Status Date / Time acetaminophen [From Vicodin] AdvReac Unknown Verified 10/19/18 20:07 hydrocodone [From Vicodin] AdvReac Unknown Verified 10/19/18 20:07 Review of Systems ROS Other: All systems not noted in ROS Statement are negative. <Alia Rehman - Last Filed: 10/19/18 21:50> ROS Other: All systems not noted in ROS Statement are negative. <Jaydon Tinsley - Last Filed: 10/21/18 07:17> ROS Statement: Those systems with pertinent positive or pertinent negative responses have been documented in the HPI. 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 at time of this admit-please call dr cano in am to verify History of Any Multi-Drug Resistant Organisms: None Reported Past Surgical History: Back Surgery, Bladder Surgery, Bowel Resection, Cholecystectomy, Hysterectomy Additional Past Surgical History / Comment(s): fish cataracts, egd, colonoscopy, rotator cuff sx, cystocele/rectocele Past Anesthesia/Blood Transfusion Reactions: Motion Sickness Additional Past Anesthesia/Blood Transfusion Reaction / Comment(s): past blood transfusion -"no known reasction" Past Psychological History: No Psychological Hx Reported Smoking Status: Never smoker Past Alcohol Use History: None Reported Past Drug Use History: None Reported - Past Family History Mother Family Medical History: Diabetes Mellitus Father Family Medical History: Cancer, Prostate Disorder Additional Family Medical History / Comment(s): prostate cancer <Alia Rehman - Last Filed: 10/19/18 21:50> General Exam Limitations: no limitations General appearance: alert, in no apparent distress, other (This is a thin, pale appearing elderly female patient in no acute distress. Vital signs upon presentation are temperature 96.9F, pulse 96, respirations 14, blood pressure 127/63, pulse ox 93% on room air.) Eye exam: Present: normal appearance, PERRL, EOMI. Absent: scleral icterus, conjunctival injection, periorbital swelling ENT exam: Present: normal exam, normal oropharynx, mucous membranes moist Respiratory exam: Present: normal lung sounds bilaterally. Absent: respiratory distress, wheezes, rales, rhonchi, stridor Cardiovascular Exam: Present: regular rate, normal rhythm, normal heart sounds. Absent: systolic murmur, diastolic murmur, rubs, gallop, clicks GI/Abdominal exam: Present: soft, normal bowel sounds. Absent: distended, tenderness, guarding, rebound, rigid Neurological exam: Present: alert, oriented X3, CN II-XII intact Psychiatric exam: Present: normal affect, normal mood Skin exam: Present: warm, dry, intact, normal color. Absent: rash <Alia Rehman - Last Filed: 10/19/18 21:50> Vital Signs 10/19/18 10/19/18 10/19/18 18:34 21:01 21:03 Temperature 96.9 F L Pulse Rate 96 92 87 Respiratory 14 24 16 Rate Blood Pressure 127/63 127/60 132/86 O2 Sat by Pulse 93 L 89 L 94 L Oximetry 10/19/18 10/19/18 10/19/18 21:30 22:30 23:00 Temperature Pulse Rate 90 92 91 Respiratory 22 24 21 Rate Blood Pressure 132/86 130/58 136/97 O2 Sat by Pulse 94 L 100 99 Oximetry 10/20/18 00:00 Temperature Pulse Rate 90 Respiratory 24 Rate Blood Pressure 130/84 O2 Sat by Pulse 100 Oximetry EKG Findings - EKG Comments: EKG Findings:: EKG obtained in 1919 shows normal sinus rhythm with a ventricular rate of 96, SD interval 126, QRS duration 100, QT 350, QTC 442. No evidence of ST elevation or depression. <Alia Rehman - Last Filed: 10/19/18 21:50> Medical Decision Making - Lab Data Result diagrams: 10/19/18 19:25 10/19/18 19:25 - Radiology Data Radiology results: report reviewed, image reviewed <Alia Rehman - Last Filed: 10/19/18 21:50> - Lab Data Result diagrams: 10/21/18 05:49 10/21/18 05:49 <Jaydon Tinsley - Last Filed: 10/21/18 07:17> - Medical Decision Making 87-year-old female patient presented to the emergency department today with family for evaluation of weakness and decreased food and fluid intake. Labs reviewed and did reveal elevated white blood cell count at 25.1, neutrophils 23.3, INR 1.6, BUN 70, creatinine 2.15, troponin 0.291, urinalysis showed a cloudy appearance with 1+ protein, small amount of blood, positive nitrite, large leukocyte esterase, 28 white blood cells, many white blood cell clumps, 8 hyaline casts, and rare urine mucus. Chest xray showed no acute findings. KUB x- ray of the abdomen showed normal abdomen however there was possible pubic fracture. Patient did have a fall in August and was admitted for compression fractures of the spine, no imaging was performed of the pelvis during this visit , patient had no further falls after August. Today nursing staff did report possible purulent fluid draining from the patient's vagina. Given elevated white blood cell count and this finding and did recommend performing CT of the abdomen and pelvis to the family. They're prefer to withhold this test at this time until they are able to discuss it with Dr. Paulion, as there is some question on whether or not they are going to be starting hospice care. We will start Rocephin to treat for urinary tract infection. We'll perform serial troponins. Did provide IV fluids for acute renal failure. Did discuss findings , results, plan and the family, they are agreeable. (Alia Rehman) I saw this patient in conjunction with the physician assistant professor of surgery. I performed independent history and physical exam. Agree with case management. (Jaydon Tinsley) - Lab Data Lab Results 10/19/18 10/19/18 10/19/18 Range/Units 19:25 19:25 19:25 WBC 25.1 H (3.8-10.6) k/uL RBC 4.17 (3.80-5.40) m/uL Hgb 12.0 (11.4-16.0) gm/dL Hct 39.2 (34.0-46.0) % MCV 94.1 (80.0-100.0) fL MCH 28.8 (25.0-35.0) pg MCHC 30.6 L (31.0-37.0) g/dL RDW 14.6 (11.5-15.5) % Plt Count 259 (150-450) k/uL Neutrophils % 93 % Lymphocytes % 3 % Monocytes % 3 % Eosinophils % 0 % Basophils % 0 % Neutrophils # 23.3 H (1.3-7.7) k/uL Lymphocytes # 0.9 L (1.0-4.8) k/uL Monocytes # 0.7 (0-1.0) k/uL Eosinophils # 0.1 (0-0.7) k/uL Basophils # 0.0 (0-0.2) k/uL Hypochromasia Slight PT (9.0-12.0) sec INR (<1.2) APTT (22.0-30.0) sec Sodium 143 (137-145) mmol/L Potassium 3.6 (3.5-5.1) mmol/L Chloride 122 H (98-107) mmol/L Carbon Dioxide 12 L (22-30) mmol/L Anion Gap 9 mmol/L BUN 70 H (7-17) mg/dL Creatinine 2.15 H (0.52-1.04) mg/dL Est GFR (CKD-EPI)AfAm 24 (>60 ml/min/1.73 sqM) Est GFR (CKD-EPI)NonAf 20 (>60 ml/min/1.73 sqM) Glucose 96 (74-99) mg/dL Plasma Lactic Acid Lc (0.7-2.0) mmol/L Calcium 8.9 (8.4-10.2) mg/dL Total Bilirubin 0.5 (0.2-1.3) mg/dL AST 24 (14-36) U/L ALT 40 (9-52) U/L Alkaline Phosphatase 111 (38-126) U/L Total Creatine Kinase <20 L (30-135) U/L CK-MB (CK-2) 2.6 H (0.0-2.4) ng/mL CK-MB (CK-2) Rel Index Troponin I 0.291 H* (0.000-0.034) ng/mL Total Protein 6.8 (6.3-8.2) g/dL Albumin 2.8 L (3.5-5.0) g/dL Urine Color Urine Appearance (Clear) Urine pH (5.0-8.0) Ur Specific [place] (1.001-1.035) Urine Protein (Negative) Urine Glucose (UA) (Negative) Urine Ketones (Negative) Urine Blood (Negative) Urine Nitrite (Negative) Urine Bilirubin (Negative) Urine Urobilinogen (<2.0) mg/dL Ur Leukocyte Esterase (Negative) Urine RBC (0-5) /hpf Urine WBC (0-5) /hpf Urine WBC Clumps (None) /hpf Ur Squamous Epith Cells (0-4) /hpf Amorphous Sediment (None) /hpf Urine Bacteria (None) /hpf Hyaline Casts (0-2) /lpf Urine Mucus (None) /hpf 10/19/18 10/19/18 10/19/18 Range/Units 19:25 19:25 20:58 WBC (3.8-10.6) k/uL RBC (3.80-5.40) m/uL Hgb (11.4-16.0) gm/dL Hct (34.0-46.0) % MCV (80.0-100.0) fL MCH (25.0-35.0) pg MCHC (31.0-37.0) g/dL RDW (11.5-15.5) % Plt Count (150-450) k/uL Neutrophils % % Lymphocytes % % Monocytes % % Eosinophils % % Basophils % % Neutrophils # (1.3-7.7) k/uL Lymphocytes # (1.0-4.8) k/uL Monocytes # (0-1.0) k/uL Eosinophils # (0-0.7) k/uL Basophils # (0-0.2) k/uL Hypochromasia PT 15.6 H (9.0-12.0) sec INR 1.6 H (<1.2) APTT 25.3 (22.0-30.0) sec Sodium (137-145) mmol/L Potassium (3.5-5.1) mmol/L Chloride (98-107) mmol/L Carbon Dioxide (22-30) mmol/L Anion Gap mmol/L BUN (7-17) mg/dL Creatinine (0.52-1.04) mg/dL Est GFR (CKD-EPI)AfAm (>60 ml/min/1.73 sqM) Est GFR (CKD-EPI)NonAf (>60 ml/min/1.73 sqM) Glucose (74-99) mg/dL Plasma Lactic Acid Lc 1.4 (0.7-2.0) mmol/L Calcium (8.4-10.2) mg/dL Total Bilirubin (0.2-1.3) mg/dL AST (14-36) U/L ALT (9-52) U/L Alkaline Phosphatase (38-126) U/L Total Creatine Kinase (30-135) U/L CK-MB (CK-2) (0.0-2.4) ng/mL CK-MB (CK-2) Rel Index Troponin I (0.000-0.034) ng/mL Total Protein (6.3-8.2) g/dL Albumin (3.5-5.0) g/dL Urine Color Yellow Urine Appearance Cloudy H (Clear) Urine pH 5.5 (5.0-8.0) Ur Specific [place] 1.014 (1.001-1.035) Urine Protein 1+ H (Negative) Urine Glucose (UA) Negative (Negative) Urine Ketones Negative (Negative) Urine Blood Small H (Negative) Urine Nitrite Positive H (Negative) Urine Bilirubin Negative (Negative) Urine Urobilinogen <2.0 (<2.0) mg/dL Ur Leukocyte Esterase Large H (Negative) Urine RBC 5 (0-5) /hpf Urine WBC 28 H (0-5) /hpf Urine WBC Clumps Moderate H (None) /hpf Ur Squamous Epith Cells 1 (0-4) /hpf Amorphous Sediment Moderate H (None) /hpf Urine Bacteria Many H (None) /hpf Hyaline Casts 8 H (0-2) /lpf Urine Mucus Rare H (None) /hpf - Radiology Data Two-view x-ray of the chest is obtained. Report was reviewed in its entirety. Impression by Dr. Chris Martinez shows no definite acute process. KUB x-ray of the abdomen is obtained. Report was reviewed in its entirety. Impression by Dr. Chris Martinez shows suspected right pubic fracture. (Alia Rehman) Disposition Decision to Admit Reason: Admit from EC Decision Date: 10/19/18 Decision Time: 22:00 <Alia Rehman - Last Filed: 10/19/18 21:50> <Jaydon Tinsley - Last Filed: 10/21/18 07:17> Clinical Impression: Pubic bone fracture, Failure to thrive, Acute on chronic renal failure, Urinary tract infection Disposition: ADMITTED IP TO THIS HOSP Condition: Serious
[2018-10-19 19:42] LABS: Basophils % (A) 0 %; Eosinophils # (A) 0.1 k/uL (0-0.7); Eosinophils % (A) 0 %; HCT 39.2 % (34.0-46.0); Hypochromasia Slight; Lymphocytes # (A) 0.9 k/uL (1.0-4.8); Lymphocytes % (A) 3 %; MCH 28.8 pg (25.0-35.0); MCHC 30.6 g/dL (31.0-37.0); MCV 94.1 fL (80.0-100.0); Mean Platelet Volume 7.3; Monocytes # (A) 0.7 k/uL (0-1.0); Monocytes % (A) 3 %; Neutrophils # (A) 23.3 k/uL (1.3-7.7); Neutrophils % (A) 93 %; Platelet Count 259 k/uL (150-450); RBC 4.17 m/uL (3.80-5.40); RDW 14.6 % (11.5-15.5); WBC 25.1 k/uL (3.8-10.6)
[2018-10-19 19:50] LABS: Albumin 2.8 g/dL (3.5-5.0); Calcium 8.9 mg/dL (8.4-10.2); Potassium 3.6 mmol/L (3.5-5.1); Total Bilirubin 0.5 mg/dL (0.2-1.3); Total Protein 6.8 g/dL (6.3-8.2)
[2018-10-19 19:51] LABS: INR 1.6 (<1.2); Partial Thromboplastin Time 25.3 sec (22.0-30.0); Prothrombin Time 15.6 sec (9.0-12.0)
[2018-10-19 19:54] LABS: Creatine Kinase <20 U/L (30-135)
[2018-10-19 20:07] LABS: Creatine Kinase MB 2.6 ng/mL (0.0-2.4)
[2018-10-19 20:10] LABS: Troponin I 0.291 ng/mL (0.000-0.034)
[2018-10-19] MEDS ORDERED: SODIUM CHLORIDE 0.9% 1,000 ML IV ONE (20:15)
--- NOTE | 2018-10-19 21:03 | XR ---
EXAMINATION TYPE: XR KUB DATE OF EXAM: 10/19/2018 COMPARISON: AP pelvis 05/10/2010 HISTORY: Pain, diarrhea TECHNIQUE: 2 supine views FINDINGS: The bowel gas pattern is normal. There are no definite acute soft tissue radiographic findings. There is indistinct undulation of the right pubis, extending to the superior pubic ramus. Note: Supine radiography cannot exclude abnormal gas collections. IMPRESSION: SUSPECT RIGHT PUBIC FRACTURE.
--- NOTE | 2018-10-19 21:08 | XR ---
EXAMINATION: XR chest 2V DATE AND TIME: 10/19/2018 8:37 PM CLINICAL INDICATION: PHH; Pain TECHNIQUE: Departmental protocol COMPARISON: 08/28/2018 FINDINGS: The previously seen coarse reticular shadows in the right upper lobe, associated with volume loss, ar e unaltered. There are no new pulmonary findings. The pleural spaces are negative. Cardiomediastinal silhouette and bones and soft tissues are unremark able. No acute skeletal or soft tissue findings. IMPRESSION: NO DEFINITE ACUTE PROCESS.
[2018-10-19 21:25] LABS: Amorphous Sediment,Urine Moderate /hpf; Appearance,Urine Cloudy (Clear); Bacteria,Urine Many /hpf; Bilirubin,Urine Negative (Negative); Blood,Urine Small (Negative); Color,Urine Yellow; Glucose,Urine (UA) Negative (Negative); Hyaline Casts,Urine 8 /lpf (0-2); Ketones,Urine Negative (Negative); Leukocyte Esterase,Urine Large (Negative); Mucus,Urine Rare /hpf; Nitrite,Urine Positive (Negative); PH, Urine 5.5 (5.0-8.0); Protein,Urine 1+ (Negative); RBC,Urine 5 /hpf (0-5); Specific Gravity,Urine 1.014 (1.001-1.035); Squamous Epithelial Cell,Urine 1 /hpf (0-4); Urobilinogen,Urine <2.0 mg/dL (<2.0); WBC,Urine 28 /hpf (0-5)
[2018-10-19] MEDS ORDERED: NALOXONE 0.4 MG/ML 1 ML VIAL IV PRN (21:47)
[2018-10-19] MEDS: SODIUM CHLORIDE 0.9% 1,000 ML IV SCH (22:03)
[2018-10-20 05:09] LABS: Albumin 2.6 g/dL (3.5-5.0); Calcium 8.8 mg/dL (8.4-10.2); Potassium 3.6 mmol/L (3.5-5.1); Total Bilirubin 0.3 mg/dL (0.2-1.3); Total Protein 6.3 g/dL (6.3-8.2)
[2018-10-20 05:26] LABS: Basophils % (A) 0 %; Eosinophils # (A) 0.1 k/uL (0-0.7); Eosinophils % (A) 0 %; HCT 38.2 % (34.0-46.0); HGB 11.3 gm/dL (11.4-16.0); Hypochromasia Marked; Lymphocytes # (A) 0.9 k/uL (1.0-4.8); Lymphocytes % (A) 4 %; MCH 28.3 pg (25.0-35.0); MCHC 29.4 g/dL (31.0-37.0); MCV 96.1 fL (80.0-100.0); Mean Platelet Volume 7.5; Monocytes # (A) 0.6 k/uL (0-1.0); Monocytes % (A) 3 %; Neutrophils # (A) 19.8 k/uL (1.3-7.7); Neutrophils % (A) 92 %; Platelet Count 239 k/uL (150-450); RBC 3.98 m/uL (3.80-5.40); RDW 14.5 % (11.5-15.5); WBC 21.5 k/uL (3.8-10.6)
[2018-10-20] MEDS: LEVOTHYROXINE 75 MCG TAB PO SCH (06:52)
[2018-10-20] MEDS: LEVOTHYROXINE 100 MCG TAB PO SCH (06:52)
[2018-10-20] MEDS: POTASSIUM CHLORIDE ER 10 MEQ TAB.ER.PRT PO SCH (09:35)
[2018-10-20] MEDS: ENOXAPARIN 40 MG/0.4 ML SYRINGE SQ SCH (12:42)
[2018-10-20] MEDS: SERTRALINE 50 MG TAB PO SCH (12:42)
[2018-10-20] MEDS: SODIUM CHLORIDE 0.9% 1,000 ML IV SCH (12:44)
[2018-10-20] MEDS: DIPHENOX-ATROP 2.5-0.025 MG 1 EACH TAB PO PRN ×2 (15:19→20:36)
--- NOTE | 2018-10-20 15:40 | P.HPIM ---
History of Present Illness H&P Date: 10/20/18 Nayana Wagner is an 87-year-old female who presented to [facility] emergency room due to severe weakness poor oral intake and evidence of dehydration. She was evaluated in the emergency room and had evidence of urinary tract infection with sepsis evidence of dehydration with acute renal failure due to prerenal azotemia, patient was having very poor oral intake. She also had a larger area of excoriation in the sacral area she was started on IV fluid IV antibiotic and was admitted to telemetry floor for further evaluation. In the emergency room patient had elevated troponin level, cardiology consultation was requested in that regard. Patient was recently admitted to [facility] due to vertebral fracture with physical debility subsequently she was transferred to a correction for rehabilitation she was discharged home about 2 weeks ago and her condition continued to decline since then she was having very minimal oral intake with evidence of dehydration. Patient has known history of colon cancer about 9 years ago treated with surgery , she has chronic diarrhea since then and is maintained on Lomotil 5 mg every 6 hours, she was still having episodes of diarrhea and has large area of excoriation in the sacral area. 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 syncope. History of Any Multi-Drug Resistant Organisms: None Reported Past Surgical History: Back Surgery, Bladder Surgery, Bowel Resection, Cholecystectomy, Hysterectomy Additional Past Surgical History / Comment(s): fish cataracts, egd, colonoscopy, rotator cuff sx, cystocele/rectocele Past Anesthesia/Blood Transfusion Reactions: Motion Sickness Additional Past Anesthesia/Blood Transfusion Reaction / Comment(s): past blood transfusion -"no known reaction" Past Psychological History: No Psychological Hx Reported Smoking Status: Never smoker Past Alcohol Use History: None Reported Past Drug Use History: None Reported - Past Family History Mother Family Medical History: Diabetes Mellitus Father Family Medical History: Cancer, Prostate Disorder Additional Family Medical History / Comment(s): prostate cancer Medications and Allergies Home Medications Medication Instructions Recorded Confirmed Type Ergocalciferol (Vitamin D2) 50,000 unit PO Q7D 08/23/18 10/19/18 History [Vitamin D2] Levothyroxine Sodium [Synthroid] 175 mcg PO DAILY 08/23/18 10/19/18 History Potassium Chloride ER [K-Dur 10] 10 meq PO DAILY tab.er.prt 08/30/18 10/19/18 Rx fentaNYL 25MCG/HR PATCH [Duragesic 1 patch TRANSDERM Q72H 10/19/18 10/19/18 History 25MCG/HR] traMADol HCl [Ultram] 50 mg PO DAILY PRN 10/19/18 10/19/18 History Allergies Allergy/AdvReac Type Severity Reaction Status Date / Time acetaminophen [From Vicodin] AdvReac Unknown Verified 10/19/18 20:07 hydrocodone [From Vicodin] AdvReac Unknown Verified 10/19/18 20:07 Physical Exam Vitals: Vital Signs Temp Pulse Pulse Resp BP BP Pulse Ox 10/20/18 15:23 97 10/20/18 12:00 98.0 F 92 20 139/63 97 10/20/18 08:30 97.5 F L 83 18 128/56 99 10/20/18 04:48 97.4 F L 83 15 149/67 100 10/20/18 01:28 97.3 F L 91 15 152/67 99 10/20/18 00:00 90 24 130/84 100 10/19/18 23:00 91 21 136/97 99 10/19/18 22:30 92 24 130/58 100 10/19/18 21:30 90 22 132/86 94 L 10/19/18 21:03 87 16 132/86 94 L 10/19/18 21:01 92 24 127/60 89 L 10/19/18 18:34 96.9 F L 96 14 127/63 93 L Intake and Output 10/20/18 10/20/18 10/20/18 06:59 14:59 22:59 Other: Voiding Method Diaper Incontinent # Voids 1 # Bowel Movements 2 Weight 39 kg 39 kg In general patient is alert and oriented 3 in no apparent distress HEENT head normocephalic and atraumatic Neck is supple no JVD no goiter no lymphadenopathy Chest exam reveals a few scattered crackles bilaterally no wheezing Cardiac exam reveals regular heart sounds S1 and S2 no gallops no murmurs Abdomen is soft nontender no organomegaly with normal bowel sounds Extremity exam reveals no edema no cyanosis or clubbing Sacral area reveals a large area of erythema with multiple small ulcerations Neurological examination reveals no gross focal deficit Results CBC & Chem 7: 10/20/18 04:18 10/20/18 04:19 Labs: Abnormal Lab Results - Last 24 Hours (Table) 10/19/18 10/19/18 10/19/18 Range/Units 19:25 19:25 19:25 WBC 25.1 H (3.8-10.6) k/uL Hgb (11.4-16.0) gm/dL MCHC 30.6 L (31.0-37.0) g/dL Neutrophils # 23.3 H (1.3-7.7) k/uL Lymphocytes # 0.9 L (1.0-4.8) k/uL PT (9.0-12.0) sec INR (<1.2) Chloride 122 H (98-107) mmol/L Carbon Dioxide 12 L (22-30) mmol/L BUN 70 H (7-17) mg/dL Creatinine 2.15 H (0.52-1.04) mg/dL Alkaline Phosphatase (38-126) U/L Total Creatine Kinase <20 L (30-135) U/L CK-MB (CK-2) 2.6 H (0.0-2.4) ng/mL Troponin I 0.291 H* (0.000-0.034) ng/mL Albumin 2.8 L (3.5-5.0) g/dL TSH (0.465-4.680) mIU/L Urine Appearance (Clear) Urine Protein (Negative) Urine Blood (Negative) Urine Nitrite (Negative) Ur Leukocyte Esterase (Negative) Urine WBC (0-5) /hpf Urine WBC Clumps (None) /hpf Amorphous Sediment (None) /hpf Urine Bacteria (None) /hpf Hyaline Casts (0-2) /lpf Urine Mucus (None) /hpf 10/19/18 10/19/18 10/20/18 Range/Units 19:25 20:58 04:18 WBC 21.5 H (3.8-10.6) k/uL Hgb 11.3 L (11.4-16.0) gm/dL MCHC 29.4 L (31.0-37.0) g/dL Neutrophils # 19.8 H (1.3-7.7) k/uL Lymphocytes # 0.9 L (1.0-4.8) k/uL PT 15.6 H (9.0-12.0) sec INR 1.6 H (<1.2) Chloride (98-107) mmol/L Carbon Dioxide (22-30) mmol/L BUN (7-17) mg/dL Creatinine (0.52-1.04) mg/dL Alkaline Phosphatase (38-126) U/L Total Creatine Kinase (30-135) U/L CK-MB (CK-2) (0.0-2.4) ng/mL Troponin I (0.000-0.034) ng/mL Albumin (3.5-5.0) g/dL TSH (0.465-4.680) mIU/L Urine Appearance Cloudy H (Clear) Urine Protein 1+ H (Negative) Urine Blood Small H (Negative) Urine Nitrite Positive H (Negative) Ur Leukocyte Esterase Large H (Negative) Urine WBC 28 H (0-5) /hpf Urine WBC Clumps Moderate H (None) /hpf Amorphous Sediment Moderate H (None) /hpf Urine Bacteria Many H (None) /hpf Hyaline Casts 8 H (0-2) /lpf Urine Mucus Rare H (None) /hpf 10/20/18 10/20/18 10/20/18 Range/Units 04:18 04:19 06:39 WBC (3.8-10.6) k/uL Hgb (11.4-16.0) gm/dL MCHC (31.0-37.0) g/dL Neutrophils # (1.3-7.7) k/uL Lymphocytes # (1.0-4.8) k/uL PT (9.0-12.0) sec INR (<1.2) Chloride 123 H (98-107) mmol/L Carbon Dioxide 12 L (22-30) mmol/L BUN 62 H (7-17) mg/dL Creatinine 1.99 H (0.52-1.04) mg/dL Alkaline Phosphatase 136 H (38-126) U/L Total Creatine Kinase (30-135) U/L CK-MB (CK-2) (0.0-2.4) ng/mL Troponin I 0.295 H* 0.271 H* (0.000-0.034) ng/mL Albumin 2.6 L (3.5-5.0) g/dL TSH (0.465-4.680) mIU/L Urine Appearance (Clear) Urine Protein (Negative) Urine Blood (Negative) Urine Nitrite (Negative) Ur Leukocyte Esterase (Negative) Urine WBC (0-5) /hpf Urine WBC Clumps (None) /hpf Amorphous Sediment (None) /hpf Urine Bacteria (None) /hpf Hyaline Casts (0-2) /lpf Urine Mucus (None) /hpf 10/20/18 Range/Units 06:39 WBC (3.8-10.6) k/uL Hgb (11.4-16.0) gm/dL MCHC (31.0-37.0) g/dL Neutrophils # (1.3-7.7) k/uL Lymphocytes # (1.0-4.8) k/uL PT (9.0-12.0) sec INR (<1.2) Chloride (98-107) mmol/L Carbon Dioxide (22-30) mmol/L BUN (7-17) mg/dL Creatinine (0.52-1.04) mg/dL Alkaline Phosphatase (38-126) U/L Total Creatine Kinase (30-135) U/L CK-MB (CK-2) (0.0-2.4) ng/mL Troponin I (0.000-0.034) ng/mL Albumin (3.5-5.0) g/dL TSH <0.015 L (0.465-4.680) mIU/L Urine Appearance (Clear) Urine Protein (Negative) Urine Blood (Negative) Urine Nitrite (Negative) Ur Leukocyte Esterase (Negative) Urine WBC (0-5) /hpf Urine WBC Clumps (None) /hpf Amorphous Sediment (None) /hpf Urine Bacteria (None) /hpf Hyaline Casts (0-2) /lpf Urine Mucus (None) /hpf Microbiology - Last 24 Hours (Table) 10/19/18 20:58 Urine Culture - Preliminary Urine,Catheterized Assessment and Plan Plan: #1 urinary tract infection #2 sepsis #3 acute kidney injury most likely related to prerenal azotemia #4 dehydration, with poor oral intake #5 recent vertebral fracture with physical debility #6 remote history of colon cancer with partial colectomy #7 chronic diarrhea #8 evidence of depression patient was recently started on Zoloft 50 mg by mouth daily At this time patient is admitted to telemetry floor she is receiving IV antibiotic Rocephin, urine culture is ordered She is also receiving IV fluid for management of acute renal failure Cardiology consultation was requested in regard to elevated troponin levels Infectious disease consultation was requested in regard to sepsis, urinary tract infection, and large area of excoriation in the sacral area For DVT prophylaxis she was started on Lovenox 40 mg subcu daily Medication and labs were reviewed will continue was current management otherwise prognosis is guarded will follow closely
--- NOTE | 2018-10-20 16:08 | CONS ---
CONSULTATION HISTORY OF PRESENT ILLNESS: Mrs. Wagner is an 87-year-old female who presented with progressive fatigue, lack of energy and was found to have evidence of worsening renal function. She had a troponin evaluation that revealed elevation. The history is obtained from the patient and the family and reviewing the records. Apparently, the patient had a fall and fracture of her vertebrae. She is very limited in her physical activity, but she had progressive lack of well to thrive. She has not been eating or drinking and becoming more weak. Initially, the thought was to put her in the hospice care and then subsequently, the decision was made to admit her to the hospital. The patient denies any chest pain. Her breathing has been stable. She denies any dizziness or palpitation. She denies any syncope. She had a prior history of bowel resection done a few years ago and subsequently has chronic diarrhea. She has no documented history of myocardial infarction, angina pectoris or congestive heart failure. MEDICATION: Are home included tramadol,.Duragesic, potassium, Synthroid, and vitamin D. REVIEW OF SYSTEMS: She has no recent wheezing or cough. No history of documented obstructive lung disease. GI system: She has the diarrhea. No recent GI bleeding. She has weight loss and lack of appetite. system: No dysuria or hematuria. Nervous system: No history of seizure. PHYSICAL EXAMINATION: She is an 87-year-old female, alert, chronically ill. Small body habitus. Thin, emaciated. Blood pressure 128/56 with a heart rate in the 80s. HEAD: Normocephalic. Eyes: Sclerae anicteric. Neck: Good carotid upstroke. No bruit. Lungs no wheezes. HEART: Regular rate and rhythm. S1, S2. No S3 with a systolic murmur. No diastolic murmur. ABDOMEN: Soft and nontender. EXTREMITIES: No edema. LAB DATA: Troponin 0.291, 0.295 and 0.271. TSH of less than 0.15. BUN and creatinine 70 and 2.15 on admission, down to 62 and 1.99 today. Potassium 3.6, hemoglobin of 11.3. EKG revealed sinus mechanism, normal axis and intervals with nonspecific ST-T wave changes and no change compared with an EKG done in August. IMPRESSION: 1. Progressive fatigue with lack of energy and well to thrive. 2. Mild troponin elevation with no evidence of acute cardiac event. I believe that this is related to her renal function abnormality and does not reflect an acute myocardial infarction. 3. Prior history of chronic diarrhea. 4. History of fractured vertebrae. RECOMMENDATIONS: Patient had an echocardiogram done in August of 2018 that revealed a preserved left ventricular size and systolic function with no significant valvular disease. After discussion with the family, and her overall status, I would not recommend any further cardiac workup. I do not believe that we are dealing with an acute ischemic event. We will see her on an as needed basis. Please feel free to call us for any questions. Thank you for this consult. MMODL / IJN: [id number] /
--- NOTE | 2018-10-21 00:59 | CONS ---
CONSULTATION DATE OF SERVICE: 10/20/2018. REASON FOR CONSULTATION: UTI and a sacral pressure ulcer. HISTORY OF PRESENT ILLNESS: The patient is an 87-year-old female who has been brought into the ER at [facility] by the family with concern for the patient who has not been eating or drinking since the patient has been discharged from the rehab after the patient was admitted there after the compression fracture. The patient oral intake has been very poor, not eating or drinking anything and the patient did have chronic diarrhea since her colon surgery. However, family had mentioned no apparent worsening her diarrhea pattern or any blood or mucus in the stool. No high-grade fever or chills. The patient himself denies any nausea or any vomiting or any abdominal pain. With these symptoms, the patient was evaluated by the ER physician. On arrival to the ER, the patient has been afebrile. She was noticed to have elevated white count to 5000 with a BUN of 17, creatinine is 2.15. Mildly elevated troponin. UA was positive. The patient was admitted hospital for dehydration, UTI, started on Rocephin. Infectious Disease was consulted for further recommendation regarding antibiotic therapy. The patient also noticed to have some excoriation of the sacral area, but no open wound. REVIEW OF SYSTEMS: Positive points have been mentioned in HPI. Rest of systems have been negative. PAST MEDICAL HISTORY: Gastroesophageal reflux disease, osteoarthritis, hypothyroidism, asthma, skin cancer. PAST SURGICAL HISTORY: Bladder surgery, bowel surgery, cholecystectomy, hysterectomy, bilateral cataract surgery, history colonoscopy. SOCIAL HISTORY: No history of smoking, drinking, or drug use. Sister with a history of diabetes and father with history of prostate cancer. ALLERGIES: TO ACETAMINOPHEN AND HYDROCODONE. MEDICATIONS: The patient is currently on ceftriaxone 1 g daily, Lomotil, Lovenox, vitamin D2, Duragesic patch, Synthroid, Marcaine, Protonix K-Dur, Zoloft, Ultram. PHYSICAL EXAMINATION: Blood pressure is 148/66, pulse of 87, temperature 97.6. She is 99% on 2 L nasal cannula. General description is an elderly female, lying in bed in no distress. No tachypnea or accessory muscle of respiration use. HEENT examination is slight pallor. No scleral icterus. Oral mucosa is dry. No pharyngeal erythema or thrush. Neck trachea central, no thyromegaly. Lungs unlabored breathing. Clear to auscultation anteriorly. No wheeze or crackles. Heart S1, S2. Regular rate and rhythm. ABDOMEN: Soft, no tenderness. No guarding or rigidity. EXTREMITIES: No edema of the feet. No rash or mass palpable. NEUROLOGICAL: Patient is awake, alert, and oriented times three. Mood and affect normal. Examination of sacral area the patient did have some excoriation, but no open wound was noticed or any cellulitis. LABS: Hemoglobin 11.3 with a white count of 25.1, BUN of 70, creatinine is 2.15. UA was cloudy, large leukocyte esterase, 28 WBC. DIAGNOSTIC IMPRESSION/PLAN: 1. Patient admitted to the hospital with dehydration, poor oral intake in this patient did have significant elevated white count. Did have a positive UA. A component of underlying tract infection interval history not entirely excluded likely from enteric gram-negative pathogen. 2. The patient did have a chronic diarrhea. This patient has been recently in the hospital and was admitted with rehab. We will have to make sure we are not dealing with infections diarrhea suggestive of colitis. 3. The patient who did have stage I sacral pressure ulcer with some excoriation, but no open wound. Recommend current local wound care. PLAN: 1. Rocephin 1 g daily to cover for the new tract infection. Waiting for the culture to finalize. 2. We will check stool for C difficile and stool culture 52 positive. 3. Depression 2. Calmoseptine solution to the sacral 80 keep the dry now the pressure. 4. We will follow up on clinical condition to further adjust medication if needed. Thank you for this consultation. Family member was present at bedside. Their questions and concerns were answered. MMODL / IJN: [id number] /
[2018-10-21] MEDS: DIPHENOX-ATROP 2.5-0.025 MG 1 EACH TAB PO PRN ×2 (04:17→17:19)
[2018-10-21 06:13] LABS: Basophils % (A) 0 %; Eosinophils # (A) 0.2 k/uL (0-0.7); Eosinophils % (A) 1 %; HCT 35.9 % (34.0-46.0); Hypochromasia Moderate; Lymphocytes # (A) 1.1 k/uL (1.0-4.8); Lymphocytes % (A) 8 %; MCH 29.1 pg (25.0-35.0); MCHC 30.7 g/dL (31.0-37.0); MCV 94.9 fL (80.0-100.0); Mean Platelet Volume 6.6; Monocytes # (A) 0.4 k/uL (0-1.0); Monocytes % (A) 3 %; Neutrophils # (A) 12.9 k/uL (1.3-7.7); Neutrophils % (A) 87 %; Platelet Count 254 k/uL (150-450); RBC 3.79 m/uL (3.80-5.40); RDW 14.6 % (11.5-15.5); WBC 14.9 k/uL (3.8-10.6)
[2018-10-21 06:21] LABS: Albumin 2.4 g/dL (3.5-5.0); Calcium 8.3 mg/dL (8.4-10.2); Total Bilirubin 0.3 mg/dL (0.2-1.3); Total Protein 5.7 g/dL (6.3-8.2)
[2018-10-21] MEDS: LEVOTHYROXINE 75 MCG TAB PO SCH (06:35)
[2018-10-21] MEDS: PANTOPRAZOLE 40 MG TABLET PO SCH (06:35)
[2018-10-21] MEDS: LEVOTHYROXINE 100 MCG TAB PO SCH (06:35)
[2018-10-21] MEDS: POTASSIUM CHLORIDE ER 10 MEQ TAB.ER.PRT PO SCH (08:38)
[2018-10-21] MEDS: ENOXAPARIN 40 MG/0.4 ML SYRINGE SQ SCH (08:38)
[2018-10-21] MEDS: SERTRALINE 50 MG TAB PO SCH (08:38)
[2018-10-21] MEDS ORDERED: Potassium Replacement Protocol 1 EACH MISC MISCELLANE PRN (15:34)
--- NOTE | 2018-10-21 15:40 | P.PN ---
Subjective Progress Note Date: 10/21/18 Nayana Wagner is an 87-year-old female who presented to [facility] emergency room due to severe weakness poor oral intake and evidence of dehydration. She was evaluated in the emergency room and had evidence of urinary tract infection with sepsis evidence of dehydration with acute renal failure due to prerenal azotemia, patient was having very poor oral intake. She also had a larger area of excoriation in the sacral area she was started on IV fluid IV antibiotic and was admitted to telemetry floor for further evaluation. In the emergency room patient had elevated troponin level, cardiology consultation was requested in that regard. Patient was recently admitted to [facility] due to vertebral fracture with physical debility subsequently she was [facility] she was discharged home about 2 weeks ago and her condition continued to decline since then she was having very minimal oral intake with evidence of dehydration. Patient has known history of colon cancer about 9 years ago treated with surgery , she has chronic diarrhea since then and is maintained on Lomotil 5 mg every 6 hours, she was still having episodes of diarrhea and has large area of excoriation in the sacral area. On 10/21/2018 patient is alert and oriented 3 in no apparent distress reports better oral intake patient denies any pain there is no fever or chills no headache or dizziness no chest pain no shortness of breath no cough no nausea or vomiting no abdominal pain no diarrhea and no urinary symptoms Objective - Vital Signs Vital signs: Vital Signs Temp 97.0 F L 10/21/18 12:00 Pulse 81 10/21/18 12:00 Resp 20 10/21/18 12:00 BP 133/60 10/21/18 12:00 Pulse Ox 99 10/21/18 12:00 Intake & Output 10/20/18 10/21/18 10/21/18 18:59 06:59 18:59 Intake Total 240 720 Balance 240 720 Weight 39 kg 39.3 kg Intake: Oral 240 720 Other: Voiding Method Diaper Diaper Diaper Incontinent Incontinent Incontinent # Voids 1 2 1 # Bowel Movements 2 4 - Exam In general patient is alert and oriented 3 in no apparent distress HEENT head normocephalic and atraumatic Neck is supple no JVD no goiter no lymphadenopathy Chest exam reveals a few scattered crackles bilaterally no wheezing Cardiac exam reveals regular heart sounds S1 and S2 no gallops no murmurs Abdomen is soft nontender no organomegaly with normal bowel sounds Extremity exam reveals no edema no cyanosis or clubbing Sacral area reveals a large area of erythema with multiple small ulcerations Neurological examination reveals no gross focal deficit - Labs CBC & Chem 7: 10/21/18 05:49 10/21/18 05:49 Labs: Abnormal Lab Results - Last 24 Hours (Table) 10/21/18 10/21/18 Range/Units 05:49 05:49 WBC 14.9 H (3.8-10.6) k/uL RBC 3.79 L (3.80-5.40) m/uL Hgb 11.0 L (11.4-16.0) gm/dL MCHC 30.7 L (31.0-37.0) g/dL Neutrophils # 12.9 H (1.3-7.7) k/uL Potassium 3.0 L (3.5-5.1) mmol/L Chloride 124 H (98-107) mmol/L Carbon Dioxide 13 L (22-30) mmol/L BUN 46 H (7-17) mg/dL Creatinine 1.79 H (0.52-1.04) mg/dL Calcium 8.3 L (8.4-10.2) mg/dL Total Protein 5.7 L (6.3-8.2) g/dL Albumin 2.4 L (3.5-5.0) g/dL Microbiology - Last 24 Hours (Table) 10/19/18 20:58 Urine Culture - Preliminary Urine,Catheterized Gram Neg Bacilli Assessment and Plan Plan: #1 urinary tract infection #2 sepsis #3 acute kidney injury most likely related to prerenal azotemia #4 dehydration, with poor oral intake #5 recent vertebral fracture with physical debility #6 remote history of colon cancer with partial colectomy #7 chronic diarrhea #8 evidence of depression patient was recently started on Zoloft 50 mg by mouth daily #9 hypothyroidism TSH is high will decrease Synthroid dose from 175 g daily to 150 g daily At this time patient is admitted to telemetry floor she is receiving IV antibiotic Rocephin, urine culture is ordered She is also receiving IV fluid for management of acute renal failure Cardiology consultation was requested in regard to elevated troponin levels, no intervention recommended Infectious disease consultation was requested in regard to sepsis, urinary tract infection, and large area of excoriation in the sacral area For DVT prophylaxis she was started on Lovenox 40 mg subcu daily Medication and labs were reviewed will continue was current management otherwise prognosis is guarded will follow closely
[2018-10-21] MEDS: SODIUM CHLORIDE 0.9% 1,000 ML IV SCH (17:18)
[2018-10-21] MEDS: POTASSIUM CHLORIDE ER 20 MEQ TAB.ER PO SCH ×2 (17:19→18:05)
--- NOTE | 2018-10-22 00:15 | PN ---
PROGRESS NOTE DATE OF SERVICE: 10/21/2018. REASON FOR FOLLOWUP: UTI infection. INTERVAL HISTORY: The patient is currently afebrile. She is more awake, alert. She is breathing comfortably. Denies having any chest pain or cough. No abdominal pain and worsening diarrhea. PHYSICAL EXAMINATION: Blood pressure 141/55 with a pulse of 83, temperature 97.6. She is 97% on room air. General description is an elderly female lying in bed in no distress. Respiratory system: Unlabored breathing with decreased breath sounds at the bases. No wheeze. Heart S1, S2. Regular rate and rhythm. Abdomen soft, no tenderness. LABS: Hemoglobin is 11 with white count 14.9, BUN of 46, creatinine is 1.79, urine with gram- negative bacilli. DIAGNOSTIC IMPRESSION AND PLAN: 1. Patient with gram-negative urinary tract infection, also with a component of dehydration. Patient at this time to continue Rocephin while waiting for the sensitivities to finalize. 2. Sacral excoriation. Local care to continue with keep the area off the pressure and dry. 3. Continue supportive care. MMODL / IJN: [id number] /
[2018-10-22] MEDS: DIPHENOX-ATROP 2.5-0.025 MG 1 EACH TAB PO PRN (00:52)
[2018-10-22 06:11] LABS: Basophils # (A) 0.1 k/uL (0-0.2); Basophils % (A) 0 %; Eosinophils # (A) 0.2 k/uL (0-0.7); Eosinophils % (A) 1 %; HCT 38.1 % (34.0-46.0); HGB 11.6 gm/dL (11.4-16.0); Hypochromasia Marked; Lymphocytes # (A) 1.2 k/uL (1.0-4.8); Lymphocytes % (A) 9 %; MCH 29.1 pg (25.0-35.0); MCHC 30.4 g/dL (31.0-37.0); MCV 95.6 fL (80.0-100.0); Monocytes # (A) 0.5 k/uL (0-1.0); Monocytes % (A) 3 %; Neutrophils # (A) 11.6 k/uL (1.3-7.7); Neutrophils % (A) 85 %; Platelet Count 280 k/uL (150-450); RBC 3.98 m/uL (3.80-5.40); RDW 14.8 % (11.5-15.5); WBC 13.7 k/uL (3.8-10.6)
[2018-10-22 06:12] LABS: Albumin 2.5 g/dL (3.5-5.0); Calcium 8.7 mg/dL (8.4-10.2); Total Bilirubin 0.3 mg/dL (0.2-1.3); Total Protein 6.1 g/dL (6.3-8.2)
[2018-10-22] MEDS: PANTOPRAZOLE 40 MG TABLET PO SCH (06:32)
[2018-10-22] MEDS: LEVOTHYROXINE 50 MCG TAB PO SCH (06:32)
[2018-10-22] MEDS: SERTRALINE 50 MG TAB PO SCH (10:00)
[2018-10-22] MEDS: ENOXAPARIN 40 MG/0.4 ML SYRINGE SQ SCH (10:01)
[2018-10-22] MEDS: POTASSIUM CHLORIDE ER 10 MEQ TAB.ER.PRT PO SCH (10:01)
[2018-10-22] MEDS: ERGOCALCIFEROL 50,000 UNIT CAP PO SCH (10:01)
[2018-10-22] MEDS: SODIUM CHLORIDE 0.9% 1,000 ML IV SCH (10:07)
--- NOTE | 2018-10-22 11:34 | US ---
EXAMINATION TYPE: US venous doppler duplex LE DATE OF EXAM: 10/22/2018 11:22 AM COMPARISON: CLINICAL HISTORY: r/o DVT. No swelling redness or pain. Cold feet. SIDE PERFORMED: Bilateral TECHNIQUE: The lower extremity deep venous system is examined utilizing real time linear array sonog rowan with graded compression, doppler sonography and color-flow sonography. VESSELS IMAGED: External Iliac Vein (EIV) Common Femoral Vein Deep Femoral Vein Greater Saphenous Vein * Femoral Vein Popliteal Vein Small Saphenous Vein * Proximal Calf Veins (* superficial vessels) Right Leg: Positive for DVT in Proximal Femoral vein; internal echoes visualized and compression def erred. Left Leg: Negative for DVT IMPRESSION: 1. Right lower extremity positive for deep venous thrombosis proximal femoral vein. 2. Left lower extremity negative for deep venous thrombosis. A Red level critical message alert has been initiated for Susie Paulino MD via the [employer] on 10/22/2018 11:31 AM. This message alert has been sent to Susie Paulino MD vi a the preferences provided by the clinician for the receipt of Radiology Critical Findings. Message I D [id number].
[2018-10-22] MEDS ORDERED: HEPARIN SODIUM,PORCINE 10,000 UNIT/ML 1 ML VIAL IV ONE (11:56)
[2018-10-22] MEDS ORDERED: HEPARIN SODIUM,PORCINE 5,000 UNIT/ML 1 ML VIAL IV PRN (11:56)
--- NOTE | 2018-10-22 12:17 | P.PN ---
Subjective Progress Note Date: 10/22/18 Nayana Wagner is an 87-year-old female who presented to [facility] emergency room due to severe weakness poor oral intake and evidence of dehydration. She was evaluated in the emergency room and had evidence of urinary tract infection with sepsis evidence of dehydration with acute renal failure due to prerenal azotemia, patient was having very poor oral intake. She also had a larger area of excoriation in the sacral area she was started on IV fluid IV antibiotic and was admitted to telemetry floor for further evaluation. In the emergency room patient had elevated troponin level, cardiology consultation was requested in that regard. Patient was recently admitted to [facility] due to vertebral fracture with physical debility subsequently she was transferred to a snf for rehabilitation she was discharged home about 2 weeks ago and her condition continued to decline since then she was having very minimal oral intake with evidence of dehydration. Patient has known history of colon cancer about 9 years ago treated with surgery , she has chronic diarrhea since then and is maintained on Lomotil 5 mg every 6 hours, she was still having episodes of diarrhea and has large area of excoriation in the sacral area. On 10/21/2018 patient is alert and oriented 3 in no apparent distress reports better oral intake patient denies any pain there is no fever or chills no headache or dizziness no chest pain no shortness of breath no cough no nausea or vomiting no abdominal pain no diarrhea and no urinary symptoms On 10/22/2018 patient is alert and oriented 3. Patient does have increased swelling to lower extremities. Venous Doppler has been ordered. Dietary consult placed for the dietary intake. Fluids made KVO due to increase fluid congestion upon auscultation. Chest x-ray ordered. This time patient denies any chest pain or shortness of breath. Patient denies nausea vomiting or diarrhea. Patient denies any urinary burning. white blood cell is improving. Objective - Vital Signs Vital signs: Vital Signs Temp 98.2 F 10/22/18 12:00 Pulse 84 10/22/18 12:00 Resp 17 10/22/18 12:00 BP 144/63 10/22/18 12:00 Pulse Ox 100 10/22/18 12:00 Intake & Output 10/21/18 10/22/18 10/22/18 18:59 06:59 18:59 Intake Total 820 100 Balance 820 100 Weight 80 kg 43.545 kg Intake: Oral 820 100 Other: Voiding Method Diaper Diaper Diaper Incontinent Incontinent Incontinent # Voids 1 1 # Bowel Movements 1 - Exam In general patient is alert and oriented 3 in no apparent distress HEENT head normocephalic and atraumatic Neck is supple no JVD no goiter no lymphadenopathy Chest exam reveals a few scattered crackles bilaterally no wheezing Cardiac exam reveals regular heart sounds S1 and S2 no gallops no murmurs Abdomen is soft nontender no organomegaly with normal bowel sounds Extremity exam reveals no edema no cyanosis or clubbing Sacral area reveals a large area of erythema with multiple small ulcerations Neurological examination reveals no gross focal deficit - Labs CBC & Chem 7: 10/22/18 05:04 10/22/18 05:04 Labs: Abnormal Lab Results - Last 24 Hours (Table) 10/21/18 10/22/18 10/22/18 Range/Units 15:11 05:04 05:04 WBC 13.7 H (3.8-10.6) k/uL MCHC 30.4 L (31.0-37.0) g/dL Neutrophils # 11.6 H (1.3-7.7) k/uL Sodium 146 H (137-145) mmol/L Potassium 3.4 L (3.5-5.1) mmol/L Chloride 128 H (98-107) mmol/L Carbon Dioxide 12 L (22-30) mmol/L BUN 34 H (7-17) mg/dL Creatinine 1.67 H (0.52-1.04) mg/dL Total Protein 6.1 L (6.3-8.2) g/dL Albumin 2.5 L (3.5-5.0) g/dL Microbiology - Last 24 Hours (Table) 10/19/18 20:58 Urine Culture - Preliminary Urine,Catheterized Escherichia coli Assessment and Plan Assessment: #1 urinary tract infection #2 sepsis #3 acute kidney injury most likely related to prerenal azotemia #4 dehydration, with poor oral intake #5 recent vertebral fracture with physical debility #6 remote history of colon cancer with partial colectomy #7 chronic diarrhea #8 evidence of depression patient was recently started on Zoloft 50 mg by mouth daily #9 hypothyroidism TSH is low will decrease Synthroid dose from 175 g daily to 150 g daily #10 DVT to right lower extremity. Venous Doppler completed showing positive for DVT in the proximal femoral vein; internal echoes visualizing compression deferred. Patient started on heparin drip. Patient started on heparin drip. Increase fluid congestion. Chest x-ray ordered. Fluids KVO Dietary consulted I performed an examination of the patient and discussed their management with the Nurse Practitioner. I have reviewed the Nurse Practitioner's notes and agree with the documented findings and plan of care
[2018-10-22 13:12] LABS: Basophils % (A) 0 %; Eosinophils # (A) 0.1 k/uL (0-0.7); Eosinophils % (A) 0 %; HCT 41.7 % (34.0-46.0); HGB 13.3 gm/dL (11.4-16.0); Hypochromasia Moderate; Lymphocytes # (A) 0.9 k/uL (1.0-4.8); Lymphocytes % (A) 6 %; MCH 30.2 pg (25.0-35.0); MCHC 31.9 g/dL (31.0-37.0); MCV 94.4 fL (80.0-100.0); Mean Platelet Volume 7.4; Monocytes # (A) 0.3 k/uL (0-1.0); Monocytes % (A) 2 %; Neutrophils # (A) 12.5 k/uL (1.3-7.7); Neutrophils % (A) 90 %; Platelet Count 291 k/uL (150-450); RBC 4.42 m/uL (3.80-5.40); RDW 14.9 % (11.5-15.5); WBC 13.8 k/uL (3.8-10.6)
[2018-10-22 13:23] LABS: INR 1.1 (<1.2); Partial Thromboplastin Time 27.5 sec (22.0-30.0); Prothrombin Time 11.9 sec (9.0-12.0)
[2018-10-22] MEDS: HEPARIN SOD,PORK IN 0.45% NACL 25,000 UNIT in 0.45% NACL 1 250ML.BAG IV SCH (14:03)
--- NOTE | 2018-10-22 14:57 | XR ---
EXAMINATION TYPE: XR chest 2V DATE OF EXAM: 10/22/2018 COMPARISON: 10/19/2018 INDICATION: Increasing crackles, abnormal auscultation TECHNIQUE: Frontal and lateral views of the chest are obtained. FINDINGS: The heart size is normal. The pulmonary vasculature is normal. Lung apices are limited with overlying soft tissues. There appears to be some increasing lung marking s to the right upper lobe which were present previously there is mild elevation of the right diaphrag m. IMPRESSION: 1. Increased lung markings to the right lung with diminished airspace. Correlate for atelectasis. Inf ectious etiology can be considered. Consider atypical forms of infection such as Mycobacterium avium intracellulare
--- NOTE | 2018-10-22 18:07 | CONS ---
CONSULTATION This 87-year-old female has been admitted to [facility] with history of urinary tract infection with sepsis. The patient also has been admitted with dehydration with poor intake. The patient recently had a vertebral fracture with physical disability. She has a history of chronic diarrhea, history of acute kidney injury related to prerenal azotemia. I was consulted because patient has some acute DVT involving the right lower extremity and also some circulation issue. Medical history also includes asthma, cancer, osteoarthritis and thyroid disorder. PHYSICAL EXAMINATION: Patient was seen in her room. She was lying comfortably in bed. No history of rest pain or tissue loss. Her neck was supple. No bruit appreciated. Chest had a few crackles at the lung bases. ABDOMEN: Soft. VASCULAR EXAMINATION: Femorals were palpable bilaterally, popliteals palpable bilaterally. Right foot: Posterior dorsal pedis not palpable. Left side has a faint Doppler for the posterior tibial. Motor function present. Ultrasound shows acute DVT of the right leg. PLAN: Patient is on heparin, which will be continued. We will follow with you. Possible angiogram for further evaluation. MMODL / IJN: [id number] /
[2018-10-23 06:01] LABS: Basophils % (A) 0 %; Eosinophils # (A) 0.1 k/uL (0-0.7); Eosinophils % (A) 0 %; HCT 40.2 % (34.0-46.0); HGB 11.9 gm/dL (11.4-16.0); Hypochromasia Moderate; Lymphocytes # (A) 1.1 k/uL (1.0-4.8); Lymphocytes % (A) 7 %; MCH 27.8 pg (25.0-35.0); MCHC 29.5 g/dL (31.0-37.0); MCV 94.5 fL (80.0-100.0); Mean Platelet Volume 6.9; Monocytes # (A) 0.6 k/uL (0-1.0); Monocytes % (A) 3 %; Neutrophils # (A) 14.6 k/uL (1.3-7.7); Neutrophils % (A) 89 %; Platelet Count 314 k/uL (150-450); RBC 4.26 m/uL (3.80-5.40); WBC 16.5 k/uL (3.8-10.6)
[2018-10-23] MEDS: PANTOPRAZOLE 40 MG TABLET PO SCH (06:19)
[2018-10-23] MEDS: LEVOTHYROXINE 50 MCG TAB PO SCH (06:19)
[2018-10-23] MEDS: SODIUM CHLORIDE 0.9% 1,000 ML IV SCH ×3 (06:21→23:20)
--- NOTE | 2018-10-23 06:30 | PN ---
PROGRESS NOTE DATE OF SERVICE: 10/22/2018. REASON FOR FOLLOWUP: 1. Urinary tract infection. 2. Sacral excoriation, stage I pressure ulcer. INTERVAL HISTORY: The patient is currently afebrile. She has been more awake, alert. She is breathing comfortably. Denies having any chest pain or any cough. No abdominal pain or any worsening diarrhea. PHYSICAL EXAMINATION: On examination, blood pressure 163/71 with a pulse of 88, temperature 98.1. She is 99% on room air. General description is an elderly female, lying in bed in no distress. RESPIRATORY SYSTEM: Unlabored breathing, clear to auscultation anteriorly. HEART: S1, S2. Regular rate and rhythm. ABDOMEN: Soft, no tenderness. EXTREMITIES: No edema of the feet. LABS: Hemoglobin is 13.3, white count 13.8 with a BUN of 34, creatinine 1.67. Urine with an E coli and Klebsiella, both of them sensitive to Rocephin. DIAGNOSTIC IMPRESSION AND PLAN: 1. Patient admitted to the hospital with mental status changes which is likely multifactorial in this patient did have a component of urinary tract infection, urine with Escherichia coli and Klebsiella both of which sensitive to Rocephin to continue with the plan to finish oral antibiotic. 2. The patient with some excoriation to the sacral area. Local care with Calmoseptine lotion. Keep the area off the pressure and dry. Family present at bedside. Questions were answered. MMODL / IJN: [id number] /
[2018-10-23] MEDS: SERTRALINE 50 MG TAB PO SCH (08:05)
[2018-10-23] MEDS: MEGESTROL 400 MG/10 ML CUP PO SCH (08:05)
[2018-10-23] MEDS: POTASSIUM CHLORIDE ER 10 MEQ TAB.ER.PRT PO SCH (08:05)
[2018-10-23 10:34] LABS: Albumin 2.7 g/dL (3.5-5.0); Calcium 8.8 mg/dL (8.4-10.2); Potassium 3.4 mmol/L (3.5-5.1); Total Bilirubin 0.4 mg/dL (0.2-1.3); Total Protein 6.4 g/dL (6.3-8.2)
--- NOTE | 2018-10-23 10:37 | P.PN ---
Subjective Progress Note Date: 10/23/18 Nayana Wagner is an 87-year-old female who presented to [facility] emergency room due to severe weakness poor oral intake and evidence of dehydration. She was evaluated in the emergency room and had evidence of urinary tract infection with sepsis evidence of dehydration with acute renal failure due to prerenal azotemia, patient was having very poor oral intake. She also had a larger area of excoriation in the sacral area she was started on IV fluid IV antibiotic and was admitted to telemetry floor for further evaluation. In the emergency room patient had elevated troponin level, cardiology consultation was requested in that regard. Patient was recently admitted to [facility] due to vertebral fracture with physical debility subsequently she was transferred to a longterm for rehabilitation she was discharged home about 2 weeks ago and her condition continued to decline since then she was having very minimal oral intake with evidence of dehydration. Patient has known history of colon cancer about 9 years ago treated with surgery , she has chronic diarrhea since then and is maintained on Lomotil 5 mg every 6 hours, she was still having episodes of diarrhea and has large area of excoriation in the sacral area. On 10/21/2018 patient is alert and oriented 3 in no apparent distress reports better oral intake patient denies any pain there is no fever or chills no headache or dizziness no chest pain no shortness of breath no cough no nausea or vomiting no abdominal pain no diarrhea and no urinary symptoms On 10/22/2018 patient is alert and oriented 3. Patient does have increased swelling to lower extremities. Venous Doppler has been ordered. Dietary consult placed for the dietary intake. Fluids made KVO due to increase fluid congestion upon auscultation. Chest x-ray ordered. This time patient denies any chest pain or shortness of breath. Patient denies nausea vomiting or diarrhea. Patient denies any urinary burning. white blood cell is improving. On 10/23/2018 patient positive for DVT in lower extremity. Patient currently on heparin. Dr. Ga following for vascular surgery. Patient dietary intake remains poor. white blood cell increasing to 16.0. Infectious disease is following. Patient denies nausea vomiting diarrhea. Patient denies chest pain or shortness breath. Patient denies urinary burning or frequency Objective - Vital Signs Vital signs: Vital Signs Temp 98.1 F 10/23/18 08:00 Pulse 82 10/23/18 08:00 Resp 18 10/23/18 08:00 BP 159/67 10/23/18 08:00 Pulse Ox 100 10/23/18 08:00 Intake & Output 10/22/18 10/23/18 10/23/18 18:59 06:59 18:59 Intake Total 180 720 141.071 Balance 180 720 141.071 Weight 43.545 kg 61.5 kg Intake: IV 20 Invasive Line 3 20 Intake, IV Titration 420 141.071 Amount Heparin Sod,Pork in 0.45% 141.071 NaCl 25,000 unit In 0.45 % NaCl 1 250ml.bag @ 18 UNITS/KG/HR 7.83 mls/hr IV .Q24H [facility] Rx#: [id number] Sodium Chloride 0.9% 1, 320 000 ml @ 50 mls/hr IV . Q20H [facility] Rx#:[id number] cefTRIAXone 1 gm In 100 Sodium Chloride 0.9% 50 ml @ 100 mls/hr IVPB Q24H [facility] Rx#:[id number] Oral 160 300 Other: Voiding Method Diaper Diaper Diaper Incontinent Incontinent Incontinent # Voids 2 1 # Bowel Movements 1 1 - Exam In general patient is alert and oriented 3 in no apparent distress HEENT head normocephalic and atraumatic Neck is supple no JVD no goiter no lymphadenopathy Chest exam reveals a few scattered crackles bilaterally no wheezing Cardiac exam reveals regular heart sounds S1 and S2 no gallops no murmurs Abdomen is soft nontender no organomegaly with normal bowel sounds Extremity exam reveals no edema no cyanosis or clubbing Sacral area reveals a large area of erythema with multiple small ulcerations Neurological examination reveals no gross focal deficit - Labs CBC & Chem 7: 10/23/18 05:00 10/22/18 05:04 Labs: Abnormal Lab Results - Last 24 Hours (Table) 10/22/18 10/22/18 10/22/18 Range/Units 12:38 18:00 18:46 WBC 13.8 H (3.8-10.6) k/uL MCHC (31.0-37.0) g/dL Neutrophils # 12.5 H (1.3-7.7) k/uL Lymphocytes # 0.9 L (1.0-4.8) k/uL APTT 68.9 H (22.0-30.0) sec Stool Occult Blood Positive H (Negative) 10/23/18 10/23/18 Range/Units 05:00 05:00 WBC 16.5 H (3.8-10.6) k/uL MCHC 29.5 L (31.0-37.0) g/dL Neutrophils # 14.6 H (1.3-7.7) k/uL Lymphocytes # (1.0-4.8) k/uL APTT 54.4 H (22.0-30.0) sec Stool Occult Blood (Negative) Microbiology - Last 24 Hours (Table) 10/22/18 18:00 Stool Culture - Preliminary Stool 10/19/18 20:58 Urine Culture - Final Urine,Catheterized Escherichia coli Klebsiella pneumoniae Assessment and Plan Assessment: #1 urinary tract infection. She remains on Rocephin for IV antibiotics. Infectious disease is following. Urine culture showing E. coli and Klebsiella pneumonia #2 sepsis. Urine culture showing E. coli and Klebsiella pneumonia infectious disease following. White blood cell count increasing today to 16.5 #3 acute kidney injury most likely related to prerenal azotemia #4 dehydration, with poor oral intake #5 recent vertebral fracture with physical debility #6 remote history of colon cancer with partial colectomy #7 chronic diarrhea #8 evidence of depression patient was recently started on Zoloft 50 mg by mouth daily #9 hypothyroidism TSH is low will decrease Synthroid dose from 175 g daily to 150 g daily #10 DVT to right lower extremity. Venous Doppler completed showing positive for DVT in the proximal femoral vein; internal echoes visualizing compression deferred. Patient started on heparin drip. Dr. Ga consulted for vascular surgery I performed an examination of the patient and discussed their management with the Nurse Practitioner. I have reviewed the Nurse Practitioner's notes and agree with the documented findings and plan of care
--- NOTE | 2018-10-23 12:48 | PN ---
PROGRESS NOTE This is an 87-year-old female. She has been admitted to [facility]. I was consulted for DVT of the right lower extremity. The patient has weight loss for the last 2 months. She refusing any food. On examination, femorals are palpable. Popliteals palpable. not palpable. The foot has capillary refill. Motor functions are normal on the right side and the patient has a DVT of the right femoral. The patient is on heparin, which will be continued. Discussed with the and the patient, most likely she may need some tube feeding. We will discuss with Dr. Paulino about it. MMODL / IJN: [id number] /
[2018-10-23] MEDS ORDERED: MENTHOL-ZINC OXIDE OINT 113 GM TUBE TOPICAL PRN (14:15)
[2018-10-23] MEDS ORDERED: Potassium Replacement Protocol 1 EACH MISC MISCELLANE PRN (14:23)
[2018-10-23] MEDS: POTASSIUM CHLORIDE ER 20 MEQ TAB.ER PO SCH ×2 (14:39→15:47)
[2018-10-23] MEDS: HEPARIN SOD,PORK IN 0.45% NACL 25,000 UNIT in 0.45% NACL 1 250ML.BAG IV SCH ×2 (14:40→23:20)
--- NOTE | 2018-10-24 00:03 | PN ---
PROGRESS NOTE DATE OF SERVICE: 10/23/2018. REASON FOR FOLLOWUP VISIT: Urinary tract infection, abnormal x-ray and question of wound infection. INTERVAL HISTORY: The patient is currently afebrile. She is breathing comfortably. The patient is more awake and alert. The patient denies any cough or sputum production. No nausea, vomiting, or any worsening diarrhea. PHYSICAL EXAMINATION: Blood pressure is 139/62 with a pulse of 85, temperature is 97.9, she is 95% on room air. GENERAL DESCRIPTION: An elderly female lying in bed in no distress. RESPIRATORY SYSTEM: Unlabored breathing clear to auscultation anteriorly. HEART: S1, S2. Regular rate and rhythm. ABDOMEN: Soft. No tenderness. EXTREMITIES: No edema of the feet. LABS: Hemoglobin 11.9, white count up to 16.5 with a BUN of 29, creatinine is 1.72. Stool for occult was positive. DIAGNOSTIC IMPRESSION AND PLAN: Patient with a urinary tract infection with Klebsiella and E coli currently covered with Rocephin. The patient now with worsening of white count. This patient currently with no other clinical focus. Chest x-ray reported possible infection, which is very unlikely as the patient has no respiratory symptoms. Chest x-ray without contrast will be obtained to better define the abnormality. The family is present at bedside. Questions were answered. MMODL / IJN: [id number] /
[2018-10-24] MEDS: DIPHENOX-ATROP 2.5-0.025 MG 1 EACH TAB PO PRN ×3 (02:59→20:12)
[2018-10-24 06:04] LABS: Basophils % (A) 0 %; Eosinophils # (A) 0.1 k/uL (0-0.7); Eosinophils % (A) 1 %; HCT 39.7 % (34.0-46.0); Hypochromasia Moderate; Lymphocytes # (A) 1.3 k/uL (1.0-4.8); Lymphocytes % (A) 7 %; MCH 28.4 pg (25.0-35.0); MCHC 30.2 g/dL (31.0-37.0); MCV 94.3 fL (80.0-100.0); Mean Platelet Volume 7.8; Monocytes # (A) 0.5 k/uL (0-1.0); Monocytes % (A) 3 %; Neutrophils # (A) 15.5 k/uL (1.3-7.7); Neutrophils % (A) 89 %; Platelet Count 355 k/uL (150-450); RBC 4.21 m/uL (3.80-5.40); WBC 17.5 k/uL (3.8-10.6)
[2018-10-24] MEDS: PANTOPRAZOLE 40 MG TABLET PO SCH (06:14)
[2018-10-24] MEDS: LEVOTHYROXINE 50 MCG TAB PO SCH (06:14)
[2018-10-24 06:19] LABS: Albumin 2.8 g/dL (3.5-5.0); Calcium 8.9 mg/dL (8.4-10.2); Potassium 3.4 mmol/L (3.5-5.1); Total Bilirubin 0.3 mg/dL (0.2-1.3); Total Protein 6.7 g/dL (6.3-8.2)
[2018-10-24] MEDS: SODIUM CHLORIDE 0.9% 1,000 ML IV SCH (06:21)
[2018-10-24] MEDS: POTASSIUM CHLORIDE ER 10 MEQ TAB.ER.PRT PO SCH (08:43)
[2018-10-24] MEDS: MEGESTROL 400 MG/10 ML CUP PO SCH (08:43)
[2018-10-24] MEDS: ARIPiprazole 2 MG TAB PO SCH (08:43)
[2018-10-24] MEDS: SERTRALINE 50 MG TAB PO SCH (08:43)
[2018-10-24] MEDS ORDERED: DEXTROSE 5% IN WATER 1,000 ML IV ONE (08:54)
--- NOTE | 2018-10-24 09:26 | CT ---
EXAMINATION TYPE: CT chest wo con DATE OF EXAM: 10/24/2018 COMPARISON: Radiograph 10/22/2018 HISTORY: 87-year-old female with abnormal Chest xray TECHNIQUE: Contiguous axial scanning of the chest without IV contrast. Coronal and sagittal reconstru ctions performed. CT DLP: 184.8 mGycm Automated exposure control for dose reduction was used. FINDINGS: Heart normal size without pericardial effusion. Coronary vessel calcifications are present. Tortuous thoracic aorta with conventional arch vessel branching anatomy and mild atherosclerotic arch calcifications. There is a focal 1.3 cm contour protuberance along the anterior inferior aortic arch that could represent a small focal aneurysm such as at the origin of the ductus arteriosus. No surro unding inflammatory change. Mildly enlarged 1.3 cm precarinal lymph node probably reactive/post inflammatory. There is a column of fluid within the thoracic esophagus. Borderline to mildly enlarged caliber of the main right and left pulmonary arteries measuring up to 2 .8 cm may reflect underlying pulmonary hypertension. Coarse reticular changes are present throughout the lungs with a slight upper lung predominance and s ome associated traction bronchiectasis. There are subpleural reticulations and some minimal subpleura l microcystic change. No bridget honeycombing. 4 mm left lower lobe pulmonary nodule axial image 39. 3 mm lingular pulmonary nodule axial image 33. 4 mm peripheral right basilar pulmonary nodule axial image 40. Hypodense lesions within the left kidney measure up to 2.6 cm and show fluid attenuation suggestive o f cysts though these aren't indeterminate on this noncontrast study. Suggestion of mild diffuse anasarca-type change. Bones: Superior endplate compression deformity of L1 and to a lesser extent T12. No surrounding parav ertebral hematoma or soft tissue swelling is seen. There is minimal retropulsion into the ventral spi nal canal at the T12 level and is accentuated kyphosis here. IMPRESSION: 1. NONSPECIFIC FIBROTIC CHANGES WITHIN THE LUNGS. SOME ASSOCIATED MILD TRACTION BRONCHIECTASIS. OWENS ES ARE PRESENT BILATERALLY BUT GREATEST IN THE RIGHT UPPER LOBE. 2. CAD. POSSIBLE UNDERLYING PULMONARY ARTERIAL HYPERTENSION. 3. SMALL 1.3 CM FOCAL PROTUBERANCE ALONG THE ANTEROINFERIOR ASPECT OF THE MID AORTIC ARCH COULD REPRE SENT A SMALL ANEURYSMAL DILATATION SUCH AT THE DUCTUS ORIGIN. 4. FLUID COLUMN WITHIN THE THORACIC ESOPHAGUS. THIS COULD REFLECT DYSMOTILITY OR GASTROESOPHAGEAL REF LUX. 5. A FEW SCATTERED PULMONARY NODULES MEASURING UP TO 4 MM. ONE-YEAR FOLLOW-UP CAN BE PERFORMED. 6. SUPERIOR ENDPLATE DEFORMITIES OF T12 AND L1 COULD BE SUBACUTE OR CHRONIC. CHRONIC COMPRESSION INJU RICHARD ARE FAVORED. CORRELATE FOR ANY FOCAL PAIN AT THESE LEVELS.
--- NOTE | 2018-10-24 09:49 | P.PN ---
Subjective Progress Note Date: 10/24/18 Nayana Wagner is an 87-year-old female who presented to [facility] emergency room due to severe weakness poor oral intake and evidence of dehydration. She was evaluated in the emergency room and had evidence of urinary tract infection with sepsis evidence of dehydration with acute renal failure due to prerenal azotemia, patient was having very poor oral intake. She also had a larger area of excoriation in the sacral area she was started on IV fluid IV antibiotic and was admitted to telemetry floor for further evaluation. In the emergency room patient had elevated troponin level, cardiology consultation was requested in that regard. Patient was recently admitted to [facility] due to vertebral fracture with physical debility subsequently [facility] she was discharged home about 2 weeks ago and her condition continued to decline since then she was having very minimal oral intake with evidence of dehydration. Patient has known history of colon cancer about 9 years ago treated with surgery , she has chronic diarrhea since then and is maintained on Lomotil 5 mg every 6 hours, she was still having episodes of diarrhea and has large area of excoriation in the sacral area. On 10/21/2018 patient is alert and oriented 3 in no apparent distress reports better oral intake patient denies any pain there is no fever or chills no headache or dizziness no chest pain no shortness of breath no cough no nausea or vomiting no abdominal pain no diarrhea and no urinary symptoms On 10/22/2018 patient is alert and oriented 3. Patient does have increased swelling to lower extremities. Venous Doppler has been ordered. Dietary consult placed for the dietary intake. Fluids made KVO due to increase fluid congestion upon auscultation. Chest x-ray ordered. This time patient denies any chest pain or shortness of breath. Patient denies nausea vomiting or diarrhea. Patient denies any urinary burning. white blood cell is improving. On 10/23/2018 patient positive for DVT in lower extremity. Patient currently on heparin. Dr. Ga following for vascular surgery. Patient dietary intake remains poor. white blood cell increasing to 16.0. Infectious disease is following. Patient denies nausea vomiting diarrhea. Patient denies chest pain or shortness breath. Patient denies urinary burning or frequency On 10/24/2018 patient is alert and oriented 3. Patient remains on heparin drip. Sodium and increasing to 152 normal saline DC'd and patient switched to D5W at 75. Computed tomography scan of the chest ordered per ID. At this time patient denies chest pain or shortness of breath. Patient denies nausea vomiting or diarrhea. Patient denies any urinary burning or frequency. Patient 's fentenyl patch DC'd. Abilify added Objective - Vital Signs Vital signs: Vital Signs Temp 96.5 F L 10/24/18 08:00 Pulse 81 10/24/18 08:00 Resp 18 10/24/18 08:47 BP 181/74 10/24/18 08:00 Pulse Ox 100 10/24/18 08:00 Intake & Output 10/23/18 10/24/18 10/24/18 18:59 06:59 18:59 Intake Total 372.749 877.86 60 Balance 372.749 877.86 60 Intake: IV 10 Invasive Line 3 10 Intake, IV Titration 192.749 867.86 Amount Heparin Sod,Pork in 0.45% 192.749 67.86 NaCl 25,000 unit In 0.45 % NaCl 1 250ml.bag @ 18 UNITS/KG/HR 7.83 mls/hr IV .Q24H [facility] Rx#: [id number] Sodium Chloride 0.9% 1, 800 000 ml @ 50 mls/hr IV . Q20H [facility] Rx#:[id number] Oral 180 60 Other: Voiding Method Diaper Diaper Diaper Incontinent Incontinent Incontinent # Voids 2 1 # Bowel Movements 1 4 - Exam In general patient is alert and oriented 3 in no apparent distress HEENT head normocephalic and atraumatic Neck is supple no JVD no goiter no lymphadenopathy Chest exam reveals a few scattered crackles bilaterally no wheezing Cardiac exam reveals regular heart sounds S1 and S2 no gallops no murmurs Abdomen is soft nontender no organomegaly with normal bowel sounds Extremity exam reveals no edema no cyanosis or clubbing Sacral area reveals a large area of erythema with multiple small ulcerations Neurological examination reveals no gross focal deficit - Labs CBC & Chem 7: 10/24/18 04:57 10/24/18 04:57 Labs: Abnormal Lab Results - Last 24 Hours (Table) 10/23/18 10/24/18 10/24/18 Range/Units 05:00 04:57 04:57 WBC 17.5 H (3.8-10.6) k/uL MCHC 30.2 L (31.0-37.0) g/dL Neutrophils # 15.5 H (1.3-7.7) k/uL APTT (22.0-30.0) sec Sodium 149 H 152 H (137-145) mmol/L Potassium 3.4 L 3.4 L (3.5-5.1) mmol/L Chloride 128 H 128 H (98-107) mmol/L Carbon Dioxide 14 L 15 L (22-30) mmol/L BUN 29 H 22 H (7-17) mg/dL Creatinine 1.72 H 1.77 H (0.52-1.04) mg/dL Glucose 102 H 100 H (74-99) mg/dL Albumin 2.7 L 2.8 L (3.5-5.0) g/dL 10/24/18 Range/Units 04:57 WBC (3.8-10.6) k/uL MCHC (31.0-37.0) g/dL Neutrophils # (1.3-7.7) k/uL APTT 43.6 H (22.0-30.0) sec Sodium (137-145) mmol/L Potassium (3.5-5.1) mmol/L Chloride (98-107) mmol/L Carbon Dioxide (22-30) mmol/L BUN (7-17) mg/dL Creatinine (0.52-1.04) mg/dL Glucose (74-99) mg/dL Albumin (3.5-5.0) g/dL Microbiology - Last 24 Hours (Table) 10/22/18 18:00 Stool Culture - Preliminary Stool Supriya species, not ablicans Assessment and Plan Assessment: #1 urinary tract infection. She remains on Rocephin for IV antibiotics. Infectious disease is following. Urine culture showing E. coli and Klebsiella pneumonia #2 sepsis. Urine culture showing E. coli and Klebsiella pneumonia infectious disease following. White blood cell count increasing today to 16.5 #3 acute kidney injury most likely related to prerenal azotemia. Abdomen increasing to 1.77. We'll continue to monitor #4 dehydration, with poor oral intake #5 recent vertebral fracture with physical debility #6 remote history of colon cancer with partial colectomy #7 chronic diarrhea #8 evidence of depression patient was recently started on Zoloft 50 mg by mouth daily #9 hypothyroidism TSH is low will decrease Synthroid dose from 175 g daily to 150 g daily #10 DVT to right lower extremity. Venous Doppler completed showing positive for DVT in the proximal femoral vein; internal echoes visualizing compression deferred. Patient started on heparin drip. Dr. Ga consulted for vascular surgery #11. Hypernatremia sodium 152. Normal saline DC'd D5W at 75 added. DVT prophylaxis heparin drip. GI prophylaxis Protonix I performed an examination of the patient and discussed their management with the Nurse Practitioner. I have reviewed the Nurse Practitioner's notes and agree with the documented findings and plan of care
[2018-10-24] MEDS: CHOLESTYRAMINE (WITH SUGAR) 4 GM PACKET PO SCH (17:49)
[2018-10-24] MEDS: FLUCONAZOLE 100 MG TAB PO SCH (20:12)
--- NOTE | 2018-10-24 23:40 | PN ---
PROGRESS NOTE DATE OF SERVICE: 10/24/2018. REASON FOR FOLLOW UP: 1. UTI. 2. Significant excoriation of the rectal bleed. 3. Diarrhea. 4. Elevated white count. INTERVAL HISTORY: The patient is afebrile. She is breathing comfortably. Denies any chest pain or any cough. No abdominal pain. The patient did have significant diarrhea per the nursing staff and significant escalation of the projected area. The patient also noted to have slightly worsening of white count which is up to 17.5 today. PHYSICAL EXAMINATION: Blood pressure 154/70 with a pulse of 81, temperature 96.5. He is 98% on room air. GENERAL DESCRIPTION: An elderly female lying in bed in no distress. RESPIRATORY SYSTEM: Unlabored breathing. Clear to auscultation anteriorly. HEART: S1, S2. Regular rate and rhythm. ABDOMEN: Soft. SKIN: Significant excoriation. No cellulitis. EXTREMITIES: No edema of the feet. LABS: White count of 17.5, creatinine is 1.77. DIAGNOSTIC IMPRESSION/PLAN: 1. Patient with E coli and Klebsiella urinary tract infection that is sensitive pathogen. Patient is currently on Rocephin, to continue. 2. Patient with elevated white count, more likely combination of the excoriation of the perirectal area. We will apply to the area. Add Diflucan. 3. Worsening diarrhea. We will add Questran for symptomatic relief and check a stool for C difficile and treat if positive. Plan of care discussed with nursing staff. MMODL / IJN: [id number] /
[2018-10-25] MEDS: PANTOPRAZOLE 40 MG TABLET PO SCH (06:11)
[2018-10-25] MEDS: LEVOTHYROXINE 50 MCG TAB PO SCH (06:11)
[2018-10-25 06:30] LABS: Basophils # (A) 0.1 k/uL (0-0.2); Basophils % (A) 0 %; Eosinophils # (A) 0.2 k/uL (0-0.7); Eosinophils % (A) 2 %; HCT 36.6 % (34.0-46.0); HGB 11.6 gm/dL (11.4-16.0); Hypochromasia Moderate; Lymphocytes # (A) 2.4 k/uL (1.0-4.8); Lymphocytes % (A) 15 %; MCH 29.3 pg (25.0-35.0); MCHC 31.6 g/dL (31.0-37.0); MCV 92.7 fL (80.0-100.0); Mean Platelet Volume 7.3; Monocytes # (A) 0.5 k/uL (0-1.0); Monocytes % (A) 3 %; Neutrophils # (A) 13.1 k/uL (1.3-7.7); Neutrophils % (A) 80 %; Platelet Count 305 k/uL (150-450); Poikilocytosis Slight; RBC 3.95 m/uL (3.80-5.40); RDW 15.2 % (11.5-15.5); WBC 16.4 k/uL (3.8-10.6)
[2018-10-25 06:50] LABS: Albumin 2.4 g/dL (3.5-5.0); Calcium 8.6 mg/dL (8.4-10.2); Potassium 2.9 mmol/L (3.5-5.1); Total Bilirubin 0.3 mg/dL (0.2-1.3)
[2018-10-25] MEDS ORDERED: Potassium Replacement Protocol 1 EACH MISC MISCELLANE PRN ×2 (06:59→08:35)
[2018-10-25] MEDS: POTASSIUM CHLORIDE ER 10 MEQ TAB.ER.PRT PO SCH (08:39)
[2018-10-25] MEDS: MEGESTROL 400 MG/10 ML CUP PO SCH (08:39)
[2018-10-25] MEDS: ARIPiprazole 2 MG TAB PO SCH (08:39)
[2018-10-25] MEDS: CHOLESTYRAMINE (WITH SUGAR) 4 GM PACKET PO SCH ×2 (08:39→18:10)
[2018-10-25] MEDS: SERTRALINE 50 MG TAB PO SCH (08:39)
[2018-10-25] MEDS: FLUCONAZOLE 100 MG TAB PO SCH (08:39)
[2018-10-25] MEDS: POTASSIUM CHLORIDE ER 20 MEQ TAB.ER PO SCH ×2 (09:03→10:21)
[2018-10-25] MEDS: POTASSIUM CHLORIDE 10 MEQ in WATER FOR INJECTION 1 100ML.BAG IVPB SCH ×5 (10:32→19:11)
--- NOTE | 2018-10-25 12:25 | P.PN ---
Subjective Progress Note Date: 10/25/18 Nayana Wagner is an 87-year-old female who presented to [facility] emergency room due to severe weakness poor oral intake and evidence of dehydration. She was evaluated in the emergency room and had evidence of urinary tract infection with sepsis evidence of dehydration with acute renal failure due to prerenal azotemia, patient was having very poor oral intake. She also had a larger area of excoriation in the sacral area she was started on IV fluid IV antibiotic and was admitted to telemetry floor for further evaluation. In the emergency room patient had elevated troponin level, cardiology consultation was requested in that regard. Patient was recently admitted to [facility] due to vertebral fracture with physical debility subsequently she was transferred to a halfway for rehabilitation she was discharged home about 2 weeks ago and her condition continued to decline since then she was having very minimal oral intake with evidence of dehydration. Patient has known history of colon cancer about 9 years ago treated with surgery , she has chronic diarrhea since then and is maintained on Lomotil 5 mg every 6 hours, she was still having episodes of diarrhea and has large area of excoriation in the sacral area. On 10/21/2018 patient is alert and oriented 3 in no apparent distress reports better oral intake patient denies any pain there is no fever or chills no headache or dizziness no chest pain no shortness of breath no cough no nausea or vomiting no abdominal pain no diarrhea and no urinary symptoms On 10/22/2018 patient is alert and oriented 3. Patient does have increased swelling to lower extremities. Venous Doppler has been ordered. Dietary consult placed for the dietary intake. Fluids made KVO due to increase fluid congestion upon auscultation. Chest x-ray ordered. This time patient denies any chest pain or shortness of breath. Patient denies nausea vomiting or diarrhea. Patient denies any urinary burning. white blood cell is improving. On 10/23/2018 patient positive for DVT in lower extremity. Patient currently on heparin. Dr. Ga following for vascular surgery. Patient dietary intake remains poor. white blood cell increasing to 16.0. Infectious disease is following. Patient denies nausea vomiting diarrhea. Patient denies chest pain or shortness breath. Patient denies urinary burning or frequency On 10/24/2018 patient is alert and oriented 3. Patient remains on heparin drip. Sodium and increasing to 152 normal saline DC'd and patient switched to D5W at 75. Computed tomography scan of the chest ordered per ID. At this time patient denies chest pain or shortness of breath. Patient denies nausea vomiting or diarrhea. Patient denies any urinary burning or frequency. Patient 's fentenyl patch DC'd. Abilify added On 10/25/2018 patient is alert and oriented. Patient remains with poor appetite. Patient has been started on Megace and Abilify. Febrile patch DC'd. Patient remains on heparin drip for DVT. Color improving to bilateral feet. White blood cell remains elevated at 18.4. Infectious disease is following. Patient remains on Rocephin and Diflucan. At this time patient denies chest pain or shortness of breath. Patient denies nausea vomiting or diarrhea. Patient denies any urinary burning or frequency Objective - Vital Signs Vital signs: Vital Signs Temp 97 F L 10/25/18 04:00 Pulse 78 10/25/18 04:00 Resp 16 10/25/18 04:00 BP 145/65 10/25/18 04:00 Pulse Ox 98 10/25/18 04:00 Intake & Output 10/24/18 10/25/18 10/25/18 18:59 06:59 18:59 Intake Total 533.52 1005 166.48 Output Total 0 Balance 533.52 1005 166.48 Intake: IV 1005 0.9 160 Dextrose 5% in Water 1, 600 000 ml @ 75 mls/hr IV . [id number] [facility] Rx#:[id number] Heparin Sod,Pork in 0.45% 145 NaCl 25,000 unit In 0.45 % NaCl 1 250ml.bag @ 18 UNITS/KG/HR 7.83 mls/hr IV .Q24H [facility] Rx#: [id number] cefTRIAXone 1 gm In 100 Sodium Chloride 0.9% 50 ml @ 100 mls/hr IVPB Q24H [facility] Rx#:[id number] Intake, IV Titration 83.52 166.48 Amount Heparin Sod,Pork in 0.45% 83.52 166.48 NaCl 25,000 unit In 0.45 % NaCl 1 250ml.bag @ 18 UNITS/KG/HR 7.83 mls/hr IV .Q24H [facility] Rx#: [id number] Oral 450 Output: Stool 0 Other: Voiding Method Diaper Diaper Incontinent Incontinent # Voids 1 1 # Bowel Movements 2 - Exam In general patient is alert and oriented 3 in no apparent distress HEENT head normocephalic and atraumatic Neck is supple no JVD no goiter no lymphadenopathy Chest exam reveals a few scattered crackles bilaterally no wheezing Cardiac exam reveals regular heart sounds S1 and S2 no gallops no murmurs Abdomen is soft nontender no organomegaly with normal bowel sounds Extremity exam reveals no edema no cyanosis or clubbing Sacral area reveals a large area of erythema with multiple small ulcerations Neurological examination reveals no gross focal deficit - Labs CBC & Chem 7: 10/25/18 05:54 10/25/18 05:54 Labs: Abnormal Lab Results - Last 24 Hours (Table) 10/24/18 10/25/18 10/25/18 Range/Units 15:30 05:54 05:54 WBC 16.4 H (3.8-10.6) k/uL Neutrophils # 13.1 H (1.3-7.7) k/uL APTT 49.9 H (22.0-30.0) sec Sodium 147 H (137-145) mmol/L Potassium 2.9 L (3.5-5.1) mmol/L Chloride 124 H (98-107) mmol/L Carbon Dioxide 15 L (22-30) mmol/L BUN 20 H (7-17) mg/dL Creatinine 1.64 H (0.52-1.04) mg/dL AST 11 L (14-36) U/L Total Protein 6.0 L (6.3-8.2) g/dL Albumin 2.4 L (3.5-5.0) g/dL 10/25/18 Range/Units 05:54 WBC (3.8-10.6) k/uL Neutrophils # (1.3-7.7) k/uL APTT 64.0 H (22.0-30.0) sec Sodium (137-145) mmol/L Potassium (3.5-5.1) mmol/L Chloride (98-107) mmol/L Carbon Dioxide (22-30) mmol/L BUN (7-17) mg/dL Creatinine (0.52-1.04) mg/dL AST (14-36) U/L Total Protein (6.3-8.2) g/dL Albumin (3.5-5.0) g/dL Microbiology - Last 24 Hours (Table) 10/22/18 18:00 Stool Culture - Preliminary Stool Supriya species, not ablicans Assessment and Plan Assessment: #1 urinary tract infection. She remains on Rocephin for IV antibiotics. Infectious disease is following. Urine culture showing E. coli and Klebsiella pneumonia. Patient remains on Rocephin per ID #2 sepsis. Urine culture showing E. coli and Klebsiella pneumonia infectious disease following. White blood cell count increasing today to 16.5 #3 acute kidney injury most likely related to prerenal azotemia. Abdomen increasing to 1.77. We'll continue to monitor #4 dehydration, with poor oral intake #5 recent vertebral fracture with physical debility #6 remote history of colon cancer with partial colectomy #7 chronic diarrhea #8 evidence of depression patient was recently started on Zoloft 50 mg by mouth daily #9 hypothyroidism TSH is low will decrease Synthroid dose from 175 g daily to 150 g daily #10 DVT to right lower extremity. Venous Doppler completed showing positive for DVT in the proximal femoral vein; internal echoes visualizing compression deferred. Patient started on heparin drip. Dr. Ga consulted for vascular surgery #11. Hypernatremia sodium 152. Normal saline DC'd D5W at 75 added. Sodium improving 147 #12. Hypokalemia. Potassium 2.9. Will replace per protocol #13 excoriation to sacral area. Infectious disease is following. Diflucan has been added per ID DVT prophylaxis heparin drip. GI prophylaxis Protonix I performed an examination of the patient and discussed their management with the Nurse Practitioner. I have reviewed the Nurse Practitioner's notes and agree with the documented findings and plan of care
[2018-10-25] MEDS: HEPARIN SOD,PORK IN 0.45% NACL 25,000 UNIT in 0.45% NACL 1 250ML.BAG IV SCH (14:31)
--- NOTE | 2018-10-25 16:29 | CDI ---
Documentation Clarification Form Date: 10/25/2018 4:07:14 PM From: Maddi Mistry CCS, CCDS Admit Date: 10/19/2018 10:20:00 PM Patient Name: Nayana Wagner Visit Number: [id number] Discharge Date: ATTENTION: The Clinical Documentation Specialists (CDI) and [facility] Coding Staff appreciate your assistance in clarifying documentation. Please respond to the clarification below the line at the bottom and electronically sign. The CDI & [facility] Coding staff will review the response and follow-up if needed. Please note: Queries are made part of the Legal Health Record. If you have any questions, please contact the author of this message via ITS. Dr. Susie Paulino: Per the ED note, the cardiology consult and attending progress note on 10/25: the patient has a poor appetite. Per the vascular progress note of 10/23, the patient has had weight loss for the last 2 months & is refusing food. History/Risk Factors: Colon cancer, has chronic diarrhea since bowel resection 9 years ago; OA, GERD, UTIs, compression vertebral fracture after a fall, recently discharged from [facility] & depression. Clinical Indicators: Presented with severe weakness, poor oral intake & evidence of dehydration, diagnosed with Sepsis secondary to a UTI with E Coli & Klebsiella pneumonaie. Failure to thrive. Also has a stage I sacral ulcer & acute RLE DVT. Hypokalemic & Hyponatremic. Labs: Total Protein (6.8), (6.3), 5.7*; Albumin 2.8*, 2.6*, 2.4* Current BMI: 17.4* Treatment: IV fl bolus x2, IV Rocephin, IV Narcan, IV fl rate 50, IV Heparin, IV Kcl. Started on Megace & Abilify. Dietary Consult: Supplement with Ensure Complete. Has a poor appetite, refusing meals & snacks. Underweight BMI 18.7. Has Dysphagia, diarrhea with fluid loss > 1 year. In your professional opinion, can you please clarify if these findings signify one of the following conditions? Mild Protein-Calorie Malnutrition Moderate Protein-Calorie Malnutrition Severe Protein-Calorie Malnutrition Other condition, please specify Unable to determine (Last Revision: December 2017) severe protein calorie malnutrition MTDD
[2018-10-25] MEDS: DIPHENOX-ATROP 2.5-0.025 MG 1 EACH TAB PO PRN (18:12)
[2018-10-25] MEDS: D5W WITH KCL 20 MEQ/L 1,000 ML IV SCH (22:25)
--- NOTE | 2018-10-25 23:59 | PN ---
PROGRESS NOTE DATE OF SERVICE: 10/25/2018. REASON FOR FOLLOWUP: Urinary tract infection, diarrhea, sacral excoriation. INTERVAL HISTORY: The patient is afebrile. She is breathing comfortably. The patient overall remains to be very poor per nursing staff. No nausea or vomiting. Her diarrhea has seemed to have slightly slowed down compared to yesterday. The patient denies having any chest pain or any cough. PHYSICAL EXAMINATION: Her blood pressure is 143/74 with a pulse of 70, temperature 97.9. She is 97% on room air. GENERAL DESCRIPTION: An elderly female lying in bed in no distress. RESPIRATORY SYSTEM: Unlabored breathing. Clear to auscultation anteriorly. HEART: S1, S2. Regular rate and rhythm. ABDOMEN: Soft, no tenderness. LABS: Potassium , white count slightly increased at 16.4 with a BUN of 20, creatinine 1.64. DIAGNOSTIC IMPRESSION AND PLAN: 1. Patient hospitalized with generalized weakness which is likely multifactorial. This patient did have a component of UTI with Proteus and E coli that is sensitive to Rocephin as well. 2. Patient with significant diarrhea along with sacral excoriation. The patient is to continue with the ream to the perirectal area. Will add empirically Flagyl to see if white count responds to it. Continue supportive care. Overall prognosis remains to be guarded. MMODL / IJN: [id number] /
[2018-10-26] MEDS: D5W WITH KCL 20 MEQ/L 1,000 ML IV SCH ×2 (02:41→11:54)
[2018-10-26] MEDS: PANTOPRAZOLE 40 MG TABLET PO SCH (05:58)
[2018-10-26] MEDS: LEVOTHYROXINE 50 MCG TAB PO SCH (05:58)
[2018-10-26] MEDS: DIPHENOX-ATROP 2.5-0.025 MG 1 EACH TAB PO PRN (06:08)
[2018-10-26 06:32] LABS: Hypochromasia Moderate
[2018-10-26 06:40] LABS: Albumin 2.4 g/dL (3.5-5.0); Calcium 8.8 mg/dL (8.4-10.2); Potassium 4.4 mmol/L (3.5-5.1); Total Bilirubin 0.3 mg/dL (0.2-1.3); Total Protein 5.8 g/dL (6.3-8.2)
[2018-10-26 06:41] LABS: HCT 35.9 % (34.0-46.0); HGB 11.5 gm/dL (11.4-16.0); MCV 93.8 fL (80.0-100.0); Mean Platelet Volume 7.7; Platelet Count 322 k/uL (150-450); RBC 3.83 m/uL (3.80-5.40); RDW 15.1 % (11.5-15.5); WBC 14.2 k/uL (3.8-10.6)
[2018-10-26 07:12] LABS: Band Neutrophils % 2 %; Eosinophils # (M) 0.57 k/uL (0-0.7); Lymphocytes # (M) 2.56 k/uL (1.0-4.8); Monocytes # (M) 0.43 k/uL (0-1.0); Neutrophils % (M) 73 %; Nucleated Red Blood Cells 0 /100 WBC (0-0); Poikilocytosis (M) Present; Total Cells Counted 100
[2018-10-26] MEDS: CHOLESTYRAMINE (WITH SUGAR) 4 GM PACKET PO SCH ×2 (08:56→17:21)
[2018-10-26] MEDS: metroNIDAZOLE 500 MG TAB PO SCH ×3 (08:56→21:52)
[2018-10-26] MEDS: SERTRALINE 50 MG TAB PO SCH (08:56)
[2018-10-26] MEDS: MEGESTROL 400 MG/10 ML CUP PO SCH (08:56)
[2018-10-26] MEDS: FLUCONAZOLE 100 MG TAB PO SCH (08:56)
[2018-10-26] MEDS: ARIPiprazole 2 MG TAB PO SCH (08:56)
[2018-10-26] MEDS: POTASSIUM CHLORIDE ER 10 MEQ TAB.ER.PRT PO SCH (08:56)
--- NOTE | 2018-10-26 10:12 | PN ---
PROGRESS NOTE Mrs. Wagner has been seen on consultation for DVT right leg. The patient has anticoagulation. The patient also has history of poor appetite, weight loss, dementia. The patient had a bowel resection 9 years ago. On examination, femorals are palpable. Popliteals palpable. There is no vascular compromise. Patient is on anticoagulation. The patient is stable from DVT point of view. Will follow with you. MMSHAKILAL / IJN: [id number] /
--- NOTE | 2018-10-26 11:27 | P.PN ---
Subjective Progress Note Date: 10/26/18 Nayana Wagner is an 87-year-old female who presented to [facility] emergency room due to severe weakness poor oral intake and evidence of dehydration. She was evaluated in the emergency room and had evidence of urinary tract infection with sepsis evidence of dehydration with acute renal failure due to prerenal azotemia, patient was having very poor oral intake. She also had a larger area of excoriation in the sacral area she was started on IV fluid IV antibiotic and was admitted to telemetry floor for further evaluation. In the emergency room patient had elevated troponin level, cardiology consultation was requested in that regard. Patient was recently admitted to [facility] due to vertebral fracture with physical debility subsequently she was transferred to a group home for rehabilitation she was discharged home about 2 weeks ago and her condition continued to decline since then she was having very minimal oral intake with evidence of dehydration. Patient has known history of colon cancer about 9 years ago treated with surgery , she has chronic diarrhea since then and is maintained on Lomotil 5 mg every 6 hours, she was still having episodes of diarrhea and has large area of excoriation in the sacral area. On 10/21/2018 patient is alert and oriented 3 in no apparent distress reports better oral intake patient denies any pain there is no fever or chills no headache or dizziness no chest pain no shortness of breath no cough no nausea or vomiting no abdominal pain no diarrhea and no urinary symptoms On 10/22/2018 patient is alert and oriented 3. Patient does have increased swelling to lower extremities. Venous Doppler has been ordered. Dietary consult placed for the dietary intake. Fluids made KVO due to increase fluid congestion upon auscultation. Chest x-ray ordered. This time patient denies any chest pain or shortness of breath. Patient denies nausea vomiting or diarrhea. Patient denies any urinary burning. white blood cell is improving. On 10/23/2018 patient positive for DVT in lower extremity. Patient currently on heparin. Dr. Ga following for vascular surgery. Patient dietary intake remains poor. white blood cell increasing to 16.0. Infectious disease is following. Patient denies nausea vomiting diarrhea. Patient denies chest pain or shortness breath. Patient denies urinary burning or frequency On 10/24/2018 patient is alert and oriented 3. Patient remains on heparin drip. Sodium and increasing to 152 normal saline DC'd and patient switched to D5W at 75. Computed tomography scan of the chest ordered per ID. At this time patient denies chest pain or shortness of breath. Patient denies nausea vomiting or diarrhea. Patient denies any urinary burning or frequency. Patient 's fentenyl patch DC'd. Abilify added On 10/25/2018 patient is alert and oriented. Patient remains with poor appetite. Patient has been started on Megace and Abilify. Febrile patch DC'd. Patient remains on heparin drip for DVT. Color improving to bilateral feet. White blood cell remains elevated at 18.4. Infectious disease is following. Patient remains on Rocephin and Diflucan. At this time patient denies chest pain or shortness of breath. Patient denies nausea vomiting or diarrhea. Patient denies any urinary burning or frequency On 10/26/2018 patient remains alert and oriented. Patient having poor appetite per . Patient's Zoloft increased yesterday. Per infectious disease Flagyl has been added. Sodium is improving to 141 fluids have been changed. White blood cell is continuing to trend down to 14.2. Encourage patient to increase fluid consumption along with working with physical therapy due to increased weakness. At this time patient denies chest pain or shortness breath. Patient denies nausea vomiting or diarrhea. Patient denies any urinary burning or frequency. Patient is on heparin drip for DVT. Spoke with case management evaluation for oral anticoagulation with xarelato vs eliquis Objective - Vital Signs Vital signs: Vital Signs Temp 96.4 F L 10/26/18 08:45 Pulse 84 10/26/18 08:45 Resp 18 10/26/18 08:45 BP 152/67 10/26/18 08:45 Pulse Ox 99 10/26/18 08:45 Intake & Output 10/25/18 10/26/18 10/26/18 18:59 06:59 18:59 Intake Total 166.48 2098.943 Output Total 0 0 Balance 166.48 2098.943 0 Weight 40.4 kg Intake: IV 1960 D5w with KCl 20 Meq/l 1, 600 000 ml @ 75 mls/hr IV . [id number] [facility] Rx#:[id number] Dextrose 5% in Water 1, 600 000 ml @ 75 mls/hr IV . [id number] [facility] Rx#:[id number] Heparin Sod,Pork in 0.45% 160 NaCl 25,000 unit In 0.45 % NaCl 1 250ml.bag @ 18 UNITS/KG/HR 7.83 mls/hr IV .Q24H [facility] Rx#: [id number] Potassium Chloride 10 meq 600 In Water For Injection 1 100ml.bag @ 100 mls/hr IVPB Q1H [facility] Rx#: [id number] Intake, IV Titration 166.48 138.943 Amount Heparin Sod,Pork in 0.45% 166.48 138.943 NaCl 25,000 unit In 0.45 % NaCl 1 250ml.bag @ 18 UNITS/KG/HR 7.83 mls/hr IV .Q24H [facility] Rx#: [id number] Output: Stool 0 0 Other: Voiding Method Diaper Diaper Diaper Incontinent Incontinent Incontinent # Voids 2 1 # Bowel Movements 1 1 - Exam In general patient is alert and oriented 3 in no apparent distress HEENT head normocephalic and atraumatic Neck is supple no JVD no goiter no lymphadenopathy Chest exam reveals a few scattered crackles bilaterally no wheezing Cardiac exam reveals regular heart sounds S1 and S2 no gallops no murmurs Abdomen is soft nontender no organomegaly with normal bowel sounds Extremity exam reveals no edema no cyanosis or clubbing Sacral area reveals a large area of erythema with multiple small ulcerations Neurological examination reveals no gross focal deficit - Labs CBC & Chem 7: 10/26/18 05:55 10/26/18 05:55 Labs: Abnormal Lab Results - Last 24 Hours (Table) 10/25/18 10/26/18 10/26/18 Range/Units 05:54 05:55 05:55 WBC 14.2 H (3.8-10.6) k/uL Neutrophils # (Manual) 10.60 H (1.3-7.7) k/uL APTT (22.0-30.0) sec Chloride 121 H (98-107) mmol/L Carbon Dioxide 16 L (22-30) mmol/L Creatinine 1.62 H (0.52-1.04) mg/dL Glucose 105 H (74-99) mg/dL Magnesium 1.3 L (1.6-2.3) mg/dL AST 13 L (14-36) U/L Total Protein 5.8 L (6.3-8.2) g/dL Albumin 2.4 L (3.5-5.0) g/dL 10/26/18 Range/Units 05:55 WBC (3.8-10.6) k/uL Neutrophils # (Manual) (1.3-7.7) k/uL APTT 52.7 H (22.0-30.0) sec Chloride (98-107) mmol/L Carbon Dioxide (22-30) mmol/L Creatinine (0.52-1.04) mg/dL Glucose (74-99) mg/dL Magnesium (1.6-2.3) mg/dL AST (14-36) U/L Total Protein (6.3-8.2) g/dL Albumin (3.5-5.0) g/dL Microbiology - Last 24 Hours (Table) 10/22/18 18:00 Stool Culture - Final Stool Supriya species, not ablicans Assessment and Plan Assessment: #1 urinary tract infection. She remains on Rocephin for IV antibiotics. Infectious disease is following. Urine culture showing E. coli and Klebsiella pneumonia. Patient remains on Rocephin per ID #2 sepsis. Urine culture showing E. coli and Klebsiella pneumonia infectious disease following. White blood cell count increasing today to 16.5 #3 acute kidney injury most likely related to prerenal azotemia. We'll continue to monitor #4 dehydration, with poor oral intake #5 recent vertebral fracture with physical debility #6 remote history of colon cancer with partial colectomy #7 chronic diarrhea #8 evidence of depression patient was recently started on Zoloft 50 mg by mouth daily #9 hypothyroidism TSH is low will decrease Synthroid dose from 175 g daily to 150 g daily #10 DVT to right lower extremity. Venous Doppler completed showing positive for DVT in the proximal femoral vein; internal echoes visualizing compression deferred. Patient started on heparin drip. Dr. Ga consulted for vascular surgery. Case management consulted for evaluation of oral anticoagulation eliquis vs Xarelto #11. Hypernatremia sodium 152. Normal saline DC'd D5W at 75 added. Sodium improving 141. Fluids changed to half-normal saline with 20 of KCl #12. Hypokalemia. Potassium 2.9. Will replace per protocol. Potassium has improved to 4.3 #13 excoriation to sacral area. Infectious disease is following. Flagyl has been added per ID DVT prophylaxis heparin ip. GI prophylaxis Protonix I performed an examination of the patient and discussed their management with the Nurse Practitioner. I have reviewed the Nurse Practitioner's notes and agree with the documented findings and plan of care
[2018-10-26] MEDS: HEPARIN SOD,PORK IN 0.45% NACL 25,000 UNIT in 0.45% NACL 1 250ML.BAG IV SCH (11:48)
[2018-10-26] MEDS: 0.45% NACL WITH KCL 20 MEQ/L 1,000 ML IV SCH ×2 (12:00→23:00)
[2018-10-26 19:58] LABS: Glucose,Whole Blood 155 mg/dL (75-99)
[2018-10-27] MEDS: HEPARIN SOD,PORK IN 0.45% NACL 25,000 UNIT in 0.45% NACL 1 250ML.BAG IV SCH (04:35)
[2018-10-27 06:22] LABS: Basophils % (A) 0 %; Eosinophils # (A) 0.2 k/uL (0-0.7); Eosinophils % (A) 2 %; HCT 38.8 % (34.0-46.0); HGB 12.2 gm/dL (11.4-16.0); Hypochromasia Moderate; Lymphocytes # (A) 2.4 k/uL (1.0-4.8); Lymphocytes % (A) 18 %; MCH 29.4 pg (25.0-35.0); MCHC 31.3 g/dL (31.0-37.0); MCV 93.9 fL (80.0-100.0); Mean Platelet Volume 7.6; Monocytes # (A) 0.4 k/uL (0-1.0); Monocytes % (A) 3 %; Neutrophils # (A) 10.2 k/uL (1.3-7.7); Neutrophils % (A) 77 %; Platelet Count 336 k/uL (150-450); RBC 4.13 m/uL (3.80-5.40); WBC 13.3 k/uL (3.8-10.6)
[2018-10-27] MEDS: LEVOTHYROXINE 50 MCG TAB PO SCH (06:24)
[2018-10-27] MEDS: PANTOPRAZOLE 40 MG TABLET PO SCH (06:24)
[2018-10-27 06:31] LABS: Albumin 2.5 g/dL (3.5-5.0); Calcium 8.8 mg/dL (8.4-10.2); Total Bilirubin 0.3 mg/dL (0.2-1.3); Total Protein 6.1 g/dL (6.3-8.2)
[2018-10-27 07:13] LABS: Poikilocytosis (M) Present
--- NOTE | 2018-10-27 08:25 | PN ---
PROGRESS NOTE DATE OF SERVICE: 10/26/2018 REASON FOR FOLLOWUP: Urinary tract infection with excoriation of the sacral area. INTERVAL HISTORY: The patient is afebrile. The patient remains to be pleasantly confused. Oral intake remains to be poor. The patient denies having any chest pain or cough. No abdominal pain or diarrhea. PHYSICAL EXAMINATION: Blood pressure 150/55 with a pulse of 84, temperature of 98.5. She is 98% on room air. The patient is an elderly female, lying in bed in no distress. RESPIRATORY SYSTEM: Unlabored breathing with decreased breath sounds in the bases. No wheeze. HEART: S1, S2. Regular rate and rhythm. ABDOMEN: Soft, no tenderness. LABS: White count 14.2 with a BUN of 17, creatinine 1.62. DIAGNOSTIC IMPRESSION AND PLAN: 1. Patient with E coli and Proteus urinary tract infection, currently covered with Rocephin. 2. The patient with significant diarrhea with excoriation of the sacral area. Continue the dry cream in addition of oral Flagyl, that will be continued for now. Family present at bedside. Their question were answered. MMODL / IJN: [id number] /
[2018-10-27] MEDS: ARIPiprazole 2 MG TAB PO SCH (08:46)
[2018-10-27] MEDS: metroNIDAZOLE 500 MG TAB PO SCH ×3 (08:46→22:47)
[2018-10-27] MEDS: SERTRALINE 50 MG TAB PO SCH (08:47)
[2018-10-27] MEDS: FLUCONAZOLE 100 MG TAB PO SCH (08:47)
[2018-10-27] MEDS: CHOLESTYRAMINE (WITH SUGAR) 4 GM PACKET PO SCH ×2 (08:47→15:36)
[2018-10-27] MEDS: MEGESTROL 400 MG/10 ML CUP PO SCH (08:47)
[2018-10-27] MEDS: POTASSIUM CHLORIDE ER 10 MEQ TAB.ER.PRT PO SCH (08:47)
[2018-10-27] MEDS: MAGNESIUM SULFATE-D5W PMX 1 GM in DEXTROSE/WATER 1 100ML.BAG IVPB SCH ×2 (09:59→11:59)
[2018-10-27] MEDS: 0.45% NACL WITH KCL 20 MEQ/L 1,000 ML IV SCH (12:06)
[2018-10-27] MEDS ORDERED: Magnesium Replacement Protocol 1 EACH MISC MISCELLANE PRN (13:17)
[2018-10-27] MEDS ORDERED: MAGNESIUM SULFATE-D5W PMX 1 GM in DEXTROSE/WATER 1 100ML.BAG IVPB SCH (14:00)
--- NOTE | 2018-10-27 14:03 | P.PN ---
Subjective Progress Note Date: 10/27/18 Nayana Wagner is an 87-year-old female who presented to [facility] emergency room due to severe weakness poor oral intake and evidence of dehydration. She was evaluated in the emergency room and had evidence of urinary tract infection with sepsis evidence of dehydration with acute renal failure due to prerenal azotemia, patient was having very poor oral intake. She also had a larger area of excoriation in the sacral area she was started on IV fluid IV antibiotic and was admitted to telemetry floor for further evaluation. In the emergency room patient had elevated troponin level, cardiology consultation was requested in that regard. Patient was recently admitted to [facility] due to vertebral fracture with physical debility subsequently she was transferred to a alf for rehabilitation she was discharged home about 2 weeks ago and her condition continued to decline since then she was having very minimal oral intake with evidence of dehydration. Patient has known history of colon cancer about 9 years ago treated with surgery , she has chronic diarrhea since then and is maintained on Lomotil 5 mg every 6 hours, she was still having episodes of diarrhea and has large area of excoriation in the sacral area. On 10/21/2018 patient is alert and oriented 3 in no apparent distress reports better oral intake patient denies any pain there is no fever or chills no headache or dizziness no chest pain no shortness of breath no cough no nausea or vomiting no abdominal pain no diarrhea and no urinary symptoms On 10/22/2018 patient is alert and oriented 3. Patient does have increased swelling to lower extremities. Venous Doppler has been ordered. Dietary consult placed for the dietary intake. Fluids made KVO due to increase fluid congestion upon auscultation. Chest x-ray ordered. This time patient denies any chest pain or shortness of breath. Patient denies nausea vomiting or diarrhea. Patient denies any urinary burning. white blood cell is improving. On 10/23/2018 patient positive for DVT in lower extremity. Patient currently on heparin. Dr. Ga following for vascular surgery. Patient dietary intake remains poor. white blood cell increasing to 16.0. Infectious disease is following. Patient denies nausea vomiting diarrhea. Patient denies chest pain or shortness breath. Patient denies urinary burning or frequency On 10/24/2018 patient is alert and oriented 3. Patient remains on heparin drip. Sodium and increasing to 152 normal saline DC'd and patient switched to D5W at 75. Computed tomography scan of the chest ordered per ID. At this time patient denies chest pain or shortness of breath. Patient denies nausea vomiting or diarrhea. Patient denies any urinary burning or frequency. Patient 's fentenyl patch DC'd. Abilify added On 10/25/2018 patient is alert and oriented. Patient remains with poor appetite. Patient has been started on Megace and Abilify. Febrile patch DC'd. Patient remains on heparin drip for DVT. Color improving to bilateral feet. White blood cell remains elevated at 18.4. Infectious disease is following. Patient remains on Rocephin and Diflucan. At this time patient denies chest pain or shortness of breath. Patient denies nausea vomiting or diarrhea. Patient denies any urinary burning or frequency On 10/26/2018 patient remains alert and oriented. Patient having poor appetite per . Patient's Zoloft increased yesterday. Per infectious disease Flagyl has been added. Sodium is improving to 141 fluids have been changed. White blood cell is continuing to trend down to 14.2. Encourage patient to increase fluid consumption along with working with physical therapy due to increased weakness. At this time patient denies chest pain or shortness breath. Patient denies nausea vomiting or diarrhea. Patient denies any urinary burning or frequency. Patient is on heparin drip for DVT. Spoke with case management evaluation for oral anticoagulation with xarelato vs eliquis On 10/27/2018 patient is alert, confused in no apparent distress, she is still having very poor oral intake, otherwise there is no complaints she denies any pain at this time there is no fever or chills no headache or dizziness no chest pain no shortness of breath no cough no nausea or vomiting no abdominal pain no diarrhea and no urinary symptoms Objective - Vital Signs Vital signs: Vital Signs Temp 97.0 F L 10/27/18 12:00 Pulse 65 10/27/18 12:00 Resp 18 10/27/18 12:00 BP 99/78 10/27/18 12:00 Pulse Ox 99 10/27/18 12:00 Intake & Output 10/26/18 10/27/18 10/27/18 18:59 06:59 18:59 Intake Total 60 1173.173 200 Output Total 0 0 Balance 60 1173.173 200 Weight 40.4 kg 28.5 kg Intake: IV 300 D5w with KCl 20 Meq/l 1, 300 000 ml @ 75 mls/hr IV . [id number] [facility] Rx#:[id number] Intake, IV Titration 753.173 Amount 0.45% NaCl with KCl 20 525 Meq/l 1,000 ml @ 75 mls/ hr IV .[id number] [facility] Rx#: [id number] Heparin Sod,Pork in 0.45% 128.173 NaCl 25,000 unit In 0.45 % NaCl 1 250ml.bag @ 18 UNITS/KG/HR 7.83 mls/hr IV .Q24H [facility] Rx#: [id number] cefTRIAXone 1 gm In 100 Sodium Chloride 0.9% 50 ml @ 100 mls/hr IVPB Q24H [facility] Rx#:[id number] Oral 60 120 200 Output: Stool 0 0 Other: Voiding Method Diaper Diaper Diaper Incontinent Incontinent Incontinent # Voids 2 2 2 # Bowel Movements 1 1 - Exam In general patient is alert and oriented 3 in no apparent distress HEENT head normocephalic and atraumatic Neck is supple no JVD no goiter no lymphadenopathy Chest exam reveals a few scattered crackles bilaterally no wheezing Cardiac exam reveals regular heart sounds S1 and S2 no gallops no murmurs Abdomen is soft nontender no organomegaly with normal bowel sounds Extremity exam reveals no edema no cyanosis or clubbing Sacral area reveals a large area of erythema with multiple small ulcerations Neurological examination reveals no gross focal deficit - Labs CBC & Chem 7: 10/27/18 05:37 10/27/18 05:37 Labs: Abnormal Lab Results - Last 24 Hours (Table) 10/26/18 10/26/18 10/27/18 Range/Units 19:56 22:20 05:37 WBC 13.3 H (3.8-10.6) k/uL Neutrophils # 10.2 H (1.3-7.7) k/uL APTT (22.0-30.0) sec Sodium (137-145) mmol/L Chloride (98-107) mmol/L Carbon Dioxide (22-30) mmol/L Creatinine (0.52-1.04) mg/dL POC Glucose (mg/dL) 155 H (75-99) mg/dL Magnesium 1.4 L (1.6-2.3) mg/dL AST (14-36) U/L Total Protein (6.3-8.2) g/dL Albumin (3.5-5.0) g/dL 10/27/18 10/27/18 Range/Units 05:37 05:37 WBC (3.8-10.6) k/uL Neutrophils # (1.3-7.7) k/uL APTT 57.7 H (22.0-30.0) sec Sodium 136 L (137-145) mmol/L Chloride 115 H (98-107) mmol/L Carbon Dioxide 16 L (22-30) mmol/L Creatinine 1.46 H (0.52-1.04) mg/dL POC Glucose (mg/dL) (75-99) mg/dL Magnesium (1.6-2.3) mg/dL AST 13 L (14-36) U/L Total Protein 6.1 L (6.3-8.2) g/dL Albumin 2.5 L (3.5-5.0) g/dL Assessment and Plan Plan: #1 urinary tract infection. She remains on Rocephin for IV antibiotics. Infectious disease is following. Urine culture showing E. coli and Klebsiella pneumonia. Patient remains on Rocephin per ID #2 sepsis. Urine culture showing E. coli and Klebsiella pneumonia infectious disease following. White blood cell count increasing today to 16.5 #3 acute kidney injury most likely related to prerenal azotemia. We'll continue to monitor #4 dehydration, with poor oral intake #5 recent vertebral fracture with physical debility #6 remote history of colon cancer with partial colectomy #7 chronic diarrhea #8 evidence of depression patient was recently started on Zoloft 50 mg by mouth daily #9 hypothyroidism TSH is low will decrease Synthroid dose from 175 g daily to 150 g daily #10 DVT to right lower extremity. Venous Doppler completed showing positive for DVT in the proximal femoral vein; internal echoes visualizing compression deferred. Patient started on heparin drip. Dr. Ga consulted for vascular surgery. Case management consulted for evaluation of oral anticoagulation eliquis vs Xarelto #11. Hypernatremia sodium 152. Normal saline DC'd D5W at 75 added. Sodium improving 141. Fluids changed to half-normal saline with 20 of KCl #12. Hypokalemia. Potassium 2.9. Will replace per protocol. Potassium has improved to 4.3 #13 excoriation to sacral area. Infectious disease is following. Flagyl has been added per ID DVT prophylaxis heparin drip. GI prophylaxis Protonix
[2018-10-28] MEDS: 0.45% NACL WITH KCL 20 MEQ/L 1,000 ML IV SCH ×2 (03:03→15:29)
[2018-10-28] MEDS: LEVOTHYROXINE 50 MCG TAB PO SCH (06:27)
[2018-10-28] MEDS: PANTOPRAZOLE 40 MG TABLET PO SCH (06:27)
[2018-10-28] MEDS: HEPARIN SOD,PORK IN 0.45% NACL 25,000 UNIT in 0.45% NACL 1 250ML.BAG IV SCH (06:44)
[2018-10-28 06:57] LABS: Basophils # (A) 0.1 k/uL (0-0.2); Basophils % (A) 1 %; Eosinophils # (A) 0.1 k/uL (0-0.7); Eosinophils % (A) 1 %; HCT 43.6 % (34.0-46.0); HGB 12.9 gm/dL (11.4-16.0); Hypochromasia Marked; Lymphocytes # (A) 2.1 k/uL (1.0-4.8); Lymphocytes % (A) 14 %; MCH 28.4 pg (25.0-35.0); MCHC 29.6 g/dL (31.0-37.0); Mean Platelet Volume 7.6; Monocytes # (A) 0.4 k/uL (0-1.0); Monocytes % (A) 2 %; Neutrophils # (A) 12.1 k/uL (1.3-7.7); Neutrophils % (A) 82 %; Platelet Count 430 k/uL (150-450); RBC 4.54 m/uL (3.80-5.40); RDW 15.1 % (11.5-15.5); WBC 14.8 k/uL (3.8-10.6)
[2018-10-28 07:06] LABS: Albumin 2.8 g/dL (3.5-5.0); Magnesium 2.5 mg/dL (1.6-2.3); Potassium 5.1 mmol/L (3.5-5.1); Total Bilirubin 0.3 mg/dL (0.2-1.3); Total Protein 6.7 g/dL (6.3-8.2)
[2018-10-28] MEDS: POTASSIUM CHLORIDE ER 10 MEQ TAB.ER.PRT PO SCH (07:32)
[2018-10-28] MEDS: ARIPiprazole 2 MG TAB PO SCH (07:35)
[2018-10-28] MEDS: CHOLESTYRAMINE (WITH SUGAR) 4 GM PACKET PO SCH ×2 (07:35→15:29)
[2018-10-28] MEDS: FLUCONAZOLE 100 MG TAB PO SCH (07:35)
[2018-10-28] MEDS: SERTRALINE 50 MG TAB PO SCH (07:35)
[2018-10-28] MEDS: metroNIDAZOLE 500 MG TAB PO SCH ×3 (07:35→22:54)
[2018-10-28] MEDS: MEGESTROL 400 MG/10 ML CUP PO SCH (07:35)
--- NOTE | 2018-10-28 09:03 | P.PN ---
Subjective Progress Note Date: 10/28/18 Nayana Wagner is an 87-year-old female who presented to [facility] emergency room due to severe weakness poor oral intake and evidence of dehydration. She was evaluated in the emergency room and had evidence of urinary tract infection with sepsis evidence of dehydration with acute renal failure due to prerenal azotemia, patient was having very poor oral intake. She also had a larger area of excoriation in the sacral area she was started on IV fluid IV antibiotic and was admitted to telemetry floor for further evaluation. In the emergency room patient had elevated troponin level, cardiology consultation was requested in that regard. Patient was recently admitted to [facility] due to vertebral fracture with physical debility subsequently she was transferred to a skilled nursing for rehabilitation she was discharged home about 2 weeks ago and her condition continued to decline since then she was having very minimal oral intake with evidence of dehydration. Patient has known history of colon cancer about 9 years ago treated with surgery , she has chronic diarrhea since then and is maintained on Lomotil 5 mg every 6 hours, she was still having episodes of diarrhea and has large area of excoriation in the sacral area. On 10/21/2018 patient is alert and oriented 3 in no apparent distress reports better oral intake patient denies any pain there is no fever or chills no headache or dizziness no chest pain no shortness of breath no cough no nausea or vomiting no abdominal pain no diarrhea and no urinary symptoms On 10/22/2018 patient is alert and oriented 3. Patient does have increased swelling to lower extremities. Venous Doppler has been ordered. Dietary consult placed for the dietary intake. Fluids made KVO due to increase fluid congestion upon auscultation. Chest x-ray ordered. This time patient denies any chest pain or shortness of breath. Patient denies nausea vomiting or diarrhea. Patient denies any urinary burning. white blood cell is improving. On 10/23/2018 patient positive for DVT in lower extremity. Patient currently on heparin. Dr. Ga following for vascular surgery. Patient dietary intake remains poor. white blood cell increasing to 16.0. Infectious disease is following. Patient denies nausea vomiting diarrhea. Patient denies chest pain or shortness breath. Patient denies urinary burning or frequency On 10/24/2018 patient is alert and oriented 3. Patient remains on heparin drip. Sodium and increasing to 152 normal saline DC'd and patient switched to D5W at 75. Computed tomography scan of the chest ordered per ID. At this time patient denies chest pain or shortness of breath. Patient denies nausea vomiting or diarrhea. Patient denies any urinary burning or frequency. Patient 's fentenyl patch DC'd. Abilify added On 10/25/2018 patient is alert and oriented. Patient remains with poor appetite. Patient has been started on Megace and Abilify. Febrile patch DC'd. Patient remains on heparin drip for DVT. Color improving to bilateral feet. White blood cell remains elevated at 18.4. Infectious disease is following. Patient remains on Rocephin and Diflucan. At this time patient denies chest pain or shortness of breath. Patient denies nausea vomiting or diarrhea. Patient denies any urinary burning or frequency On 10/26/2018 patient remains alert and oriented. Patient having poor appetite per . Patient's Zoloft increased yesterday. Per infectious disease Flagyl has been added. Sodium is improving to 141 fluids have been changed. White blood cell is continuing to trend down to 14.2. Encourage patient to increase fluid consumption along with working with physical therapy due to increased weakness. At this time patient denies chest pain or shortness breath. Patient denies nausea vomiting or diarrhea. Patient denies any urinary burning or frequency. Patient is on heparin drip for DVT. Spoke with case management evaluation for oral anticoagulation with xarelato vs eliquis On 10/27/2018 patient is alert, confused in no apparent distress, she is still having very poor oral intake, otherwise there is no complaints she denies any pain at this time there is no fever or chills no headache or dizziness no chest pain no shortness of breath no cough no nausea or vomiting no abdominal pain no diarrhea and no urinary symptoms. On 10/28/2018 patient was seen and examined on the medical floor she is alert, slightly confused in no apparent distress, she still has minimal oral intake, there is no fever or chills no headache or dizziness no chest pain no shortness of breath no cough no nausea or vomiting no abdominal pain no diarrhea and no urinary symptoms, white blood count has increased since yesterday. Patient is complaining of abdominal pain with check abdomen ultrasound. Objective - Vital Signs Vital signs: Vital Signs Temp 97.6 F 10/28/18 03:06 Pulse 88 10/28/18 03:14 Resp 17 10/28/18 03:14 BP 156/94 10/28/18 03:06 Pulse Ox 96 10/28/18 03:06 Intake & Output 10/27/18 10/28/18 10/28/18 18:59 06:59 18:59 Intake Total 260 1283.558 2.445 Output Total 0 Balance 260 1283.558 2.445 Weight 31 kg Intake: IV 50 cefTRIAXone 1 gm In 50 Sodium Chloride 0.9% 50 ml @ 100 mls/hr IVPB Q24H [facility] Rx#:[id number] Intake, IV Titration 1033.558 2.445 Amount 0.45% NaCl with KCl 20 825 Meq/l 1,000 ml @ 75 mls/ hr IV .[id number] [facility] Rx#: [id number] Heparin Sod,Pork in 0.45% 208.558 2.445 NaCl 25,000 unit In 0.45 % NaCl 1 250ml.bag @ 18 UNITS/KG/HR 7.83 mls/hr IV .Q24H [facility] Rx#: [id number] Oral 260 200 Output: Stool 0 Other: Voiding Method Diaper Diaper Incontinent Incontinent # Voids 2 5 # Bowel Movements 1 - Exam In general patient is alert and oriented 3 in no apparent distress HEENT head normocephalic and atraumatic Neck is supple no JVD no goiter no lymphadenopathy Chest exam reveals a few scattered crackles bilaterally no wheezing Cardiac exam reveals regular heart sounds S1 and S2 no gallops no murmurs Abdomen is soft nontender no organomegaly with normal bowel sounds Extremity exam reveals no edema no cyanosis or clubbing Sacral area reveals a large area of erythema with multiple small ulcerations Neurological examination reveals no gross focal deficit - Labs CBC & Chem 7: 10/28/18 05:48 10/28/18 05:48 Labs: Abnormal Lab Results - Last 24 Hours (Table) 10/28/18 10/28/18 10/28/18 Range/Units 05:48 05:48 05:48 WBC 14.8 H (3.8-10.6) k/uL MCHC 29.6 L (31.0-37.0) g/dL Neutrophils # 12.1 H (1.3-7.7) k/uL APTT 65.1 H (22.0-30.0) sec Chloride 115 H (98-107) mmol/L Carbon Dioxide 15 L (22-30) mmol/L Creatinine 1.47 H (0.52-1.04) mg/dL Magnesium 2.5 H (1.6-2.3) mg/dL Albumin 2.8 L (3.5-5.0) g/dL Assessment and Plan Plan: #1 urinary tract infection. She remains on Rocephin for IV antibiotics. Infectious disease is following. Urine culture showing E. coli and Klebsiella pneumonia. Rocephin was discontinued patient currently is on Flagyl and Diflucan per infectious disease, however white blood count is increasing today Will recheck chest x-ray #2 sepsis. Urine culture showing E. coli and Klebsiella pneumonia infectious disease following. #3 acute kidney injury most likely related to prerenal azotemia. We'll continue to monitor #4 dehydration, with poor oral intake #5 recent vertebral fracture with physical debility #6 remote history of colon cancer with partial colectomy #7 chronic diarrhea #8 evidence of depression patient was recently started on Zoloft 50 mg by mouth daily #9 hypothyroidism TSH is low will decrease Synthroid dose from 175 g daily to 150 g daily #10 DVT to right lower extremity. Venous Doppler completed showing positive for DVT in the proximal femoral vein; internal echoes visualizing compression deferred. Patient started on heparin drip. Dr. Ga consulted for vascular surgery. Case management consulted for evaluation of oral anticoagulation eliquis vs Xarelto #11. Hypernatremia sodium 152. Normal saline DC'd D5W at 75 added. Sodium improving 141. Fluids changed to half-normal saline with 20 of KCl #12. Hypokalemia. Potassium 2.9. Will replace per protocol. Potassium has improved to 4.3 #13 excoriation to sacral area. Infectious disease is following. Flagyl has been added per ID DVT prophylaxis heparin drip. GI prophylaxis Protonix
--- NOTE | 2018-10-28 10:20 | XR ---
EXAMINATION TYPE: XR chest 2V DATE OF EXAM: 10/28/2018 COMPARISON: 10/22/2018 HISTORY: 87-year-old female with leukocytosis TECHNIQUE: AP and lateral views FINDINGS: The heart is upper limits of normal in size. Rightward patient rotation ultrasound and normal cardiac and mediastinal contours. Elongation of the thoracic aorta. Diffuse interstitial prominence with mor e focal patchy right upper lobe opacity. Patchy posterior basilar opacity on the lateral view is incr eased. No sizable effusion. Accentuated lower thoracic kyphosis. IMPRESSION: 1. Redemonstration of fibrotic changes. Patchy opacity more pronounced in the right upper lobe could represent developing infiltrate/pneumonia here. 2. Some additional increasing patchy posterior basilar atelectasis or developing infiltrates. 3. Rotated exam. This likely accounts for the accentuation of the aortic tortuosity. Clinically corre late.
--- NOTE | 2018-10-28 10:26 | US ---
EXAMINATION TYPE: US abdomen complete DATE OF EXAM: 10/28/2018 COMPARISON: Correlation CT chest 10/24/2018 CLINICAL HISTORY: 87-year-old female abdominal pain. Failure to thrive, abdomen pain, patient disorie nted, poor historian, history of cholecystectomy, exam done portable. TECHNIQUE: Multiple sonographic images of the abdomen are obtained. FINDINGS: EXAM MEASUREMENTS: Liver Length: 10.9 cm CBD: 5.6 mm Spleen: 6.3 cm Right Kidney: 7.6 x 3.6 x 3.7 cm Left Kidney: 7.8 x 4.3 x 4.1 cm [employer]er Operator notes:Difficult and limited study due to overlying bowel gas Pancreas: obscured by overlying midline bowel gas Liver: visualized portions wnl Gallbladder: surgically absent Evidence for sonographic Banegas's sign: n/a CBD: visualized portions wnl Spleen: visualized portions wnl Right Kidney: small in size , limiting detailed assessment. Left Kidney: small in size, 2.7 x 2.3 x 2.3cm probable midpole cyst. Limited detailed assessment. Upper IVC: wnl Abd Aorta: atherosclerotic irregularity and calcifications throughout. Cocoa Powder Mixer Operator notes:Fluid seen in LUQ IMPRESSION: 1. Mild perisplenic ascites. In retrospect, this was also present on the CT of 10/24/2018. 2. Exam limitations as above. No definite additional sonographic abnormality of the abdomen seen.
--- NOTE | 2018-10-28 10:47 | PN ---
PROGRESS NOTE DATE OF SERVICE: 10/27/2018. REASON FOR FOLLOWUP: 1. Urinary tract infection. 2. Perirectal excoriation. INTERVAL HISTORY: The patient is afebrile. She is breathing comfortably, however, remains to be minimal per the present at bedside. The patient denies having any chest pain. No abdominal pain. Did mention she is in the hospital as reported by the nursing staff. PHYSICAL EXAMINATION: Blood pressure 158/64 with a pulse of 74, temperature 98.6, she is 99% on room air. GENERAL DESCRIPTION: She is an elderly female lying in bed in no distress. RESPIRATORY SYSTEM: Unlabored breathing with decreased breath sounds at the bases. HEART: S1, S2. Regular rate and rhythm. ABDOMEN: Soft, no tenderness. LABS: Hemoglobin is 12.1, 19.3, BUN of 16, creatinine 1.46. DIAGNOSTIC IMPRESSION AND PLAN: Patient in the hospital with multiple symptoms including generalized weakness, no energy. The patient did have dehydration and component of urinary tract infection with Proteus and E coli that is currently sensitive to Rocephin. The patient also has significant chronic diarrhea with excoriation of the perirectal area. Currently being treated with cream and oral Flagyl was added. The patient at this time will continue current antibiotic regimen. present at bedside, his questions were answered. MMODL / IJN: [id number] /
--- NOTE | 2018-10-28 13:16 | P.CN ---
Psychiatric Consult - . Consult date: 10/28/18 Consult:: 10/28/18 13:11 Chief Complaint: Failure To Thrive HPI: Ms. Kraus is 87 yo female with h/o recent onset dementia and anxiety admitted here due to UTI and medical complications. Reportedly patient has not been eating for last few weeks. patient denies feeling depressed or down. Stressed out and anxious about her worsening health issues. According to she had multiple GI tract surgeries. Since then she avoided eating as she has to use bathroom frequently. She denies symptoms of wen, psychosses, depression to me. Past Psych Hx : Not Significant Substance Use Hx : None. Social Hx : Lives with her MSE : . Alert, awake, interactive. Poor eye contact. Speech few words. Mood anxious. Denies having any auditory and visual hallucinations. Has no suicidal ideation. Memory impaired. MMSE 21/30. Insight and judgment impaired. 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
[2018-10-28] MEDS: MIRTAZAPINE 15 MG TAB PO SCH (22:54)
[2018-10-28] MEDS: traMADol 50 MG TAB PO PRN (22:55)
--- NOTE | 2018-10-28 23:32 | PN ---
PROGRESS NOTE DATE OF SERVICE: 10/28/2018. REASON FOR FOLLOWUP VISIT: Urinary tract infection with perirectal skin excoriation. INTERVAL HISTORY: The patient is afebrile. The patient's appetite remains very poor and is not eating the food provided by the who is present at the bedside. No vomiting. PHYSICAL EXAMINATION: Blood pressure 102/45 with a pulse of 52, temperature 98.7, pulse ox 100% on room air. GENERAL DESCRIPTION: An elderly female, lying in bed in no distress. RESPIRATORY SYSTEM: Unlabored breathing. Clear to auscultation anteriorly. HEART: S1, S2. Regular rate and rhythm. ABDOMEN: Soft, no tenderness. EXTREMITIES: No edema of the feet. LABS: White count slightly up today to 14.8. DIAGNOSTIC IMPRESSION AND PLAN: Patient with urinary tract infection, urine with Proteus and E coli. Also with perirectal skin excoriation and chronic diarrhea. The patient's white count initially responded to the Rocephin and Flagyl, continue for now. Transition to oral antibiotic on discharge. present at bedside. Questions answered. MMODL / IJN: [id number] /
[2018-10-29 06:37] LABS: Basophils # (A) 0.1 k/uL (0-0.2); Basophils % (A) 1 %; Eosinophils # (A) 0.1 k/uL (0-0.7); Eosinophils % (A) 1 %; HCT 43.7 % (34.0-46.0); HGB 12.8 gm/dL (11.4-16.0); Hypochromasia Marked; Lymphocytes # (A) 2.7 k/uL (1.0-4.8); Lymphocytes % (A) 17 %; MCH 29.2 pg (25.0-35.0); MCHC 29.3 g/dL (31.0-37.0); MCV 99.8 fL (80.0-100.0); Macrocytosis Slight; Monocytes # (A) 0.5 k/uL (0-1.0); Monocytes % (A) 3 %; Neutrophils # (A) 12.5 k/uL (1.3-7.7); Neutrophils % (A) 78 %; Platelet Count 397 k/uL (150-450); RBC 4.38 m/uL (3.80-5.40)
[2018-10-29 06:46] LABS: Albumin 2.8 g/dL (3.5-5.0); Calcium 8.9 mg/dL (8.4-10.2); Potassium 5.6 mmol/L (3.5-5.1); Total Bilirubin 0.5 mg/dL (0.2-1.3); Total Protein 6.9 g/dL (6.3-8.2)
[2018-10-29] MEDS: PANTOPRAZOLE 40 MG TABLET PO SCH (07:18)
[2018-10-29] MEDS: LEVOTHYROXINE 50 MCG TAB PO SCH (07:18)
[2018-10-29] MEDS: 0.45% NACL WITH KCL 20 MEQ/L 1,000 ML IV SCH (08:10)
[2018-10-29] MEDS: POTASSIUM CHLORIDE ER 10 MEQ TAB.ER.PRT PO SCH (08:13)
[2018-10-29] MEDS: CHOLESTYRAMINE (WITH SUGAR) 4 GM PACKET PO SCH ×2 (08:16→17:41)
[2018-10-29] MEDS: MEGESTROL 400 MG/10 ML CUP PO SCH (08:16)
[2018-10-29] MEDS: ERGOCALCIFEROL 50,000 UNIT CAP PO SCH (08:16)
[2018-10-29] MEDS: ARIPiprazole 2 MG TAB PO SCH (08:16)
[2018-10-29] MEDS: metroNIDAZOLE 500 MG TAB PO SCH ×2 (08:16→14:57)
[2018-10-29] MEDS: HEPARIN SOD,PORK IN 0.45% NACL 25,000 UNIT in 0.45% NACL 1 250ML.BAG IV SCH (08:35)
[2018-10-29] MEDS ORDERED: SODIUM POLYSTYRENE SULFONATE 15 GM/60 ML BOTTLE PO STA (10:10)
--- NOTE | 2018-10-29 13:54 | P.PN ---
Subjective Progress Note Date: 10/29/18 Nayana Wagner is an 87-year-old female who presented to [facility] emergency room due to severe weakness poor oral intake and evidence of dehydration. She was evaluated in the emergency room and had evidence of urinary tract infection with sepsis evidence of dehydration with acute renal failure due to prerenal azotemia, patient was having very poor oral intake. She also had a larger area of excoriation in the sacral area she was started on IV fluid IV antibiotic and was admitted to telemetry floor for further evaluation. In the emergency room patient had elevated troponin level, cardiology consultation was requested in that regard. Patient was recently admitted to [facility] due to vertebral fracture with physical debility subsequently she was transferred to a senior living for rehabilitation she was discharged home about 2 weeks ago and her condition continued to decline since then she was having very minimal oral intake with evidence of dehydration. Patient has known history of colon cancer about 9 years ago treated with surgery , she has chronic diarrhea since then and is maintained on Lomotil 5 mg every 6 hours, she was still having episodes of diarrhea and has large area of excoriation in the sacral area. On 10/21/2018 patient is alert and oriented 3 in no apparent distress reports better oral intake patient denies any pain there is no fever or chills no headache or dizziness no chest pain no shortness of breath no cough no nausea or vomiting no abdominal pain no diarrhea and no urinary symptoms On 10/22/2018 patient is alert and oriented 3. Patient does have increased swelling to lower extremities. Venous Doppler has been ordered. Dietary consult placed for the dietary intake. Fluids made KVO due to increase fluid congestion upon auscultation. Chest x-ray ordered. This time patient denies any chest pain or shortness of breath. Patient denies nausea vomiting or diarrhea. Patient denies any urinary burning. white blood cell is improving. On 10/23/2018 patient positive for DVT in lower extremity. Patient currently on heparin. Dr. Ga following for vascular surgery. Patient dietary intake remains poor. white blood cell increasing to 16.0. Infectious disease is following. Patient denies nausea vomiting diarrhea. Patient denies chest pain or shortness breath. Patient denies urinary burning or frequency On 10/24/2018 patient is alert and oriented 3. Patient remains on heparin drip. Sodium and increasing to 152 normal saline DC'd and patient switched to D5W at 75. Computed tomography scan of the chest ordered per ID. At this time patient denies chest pain or shortness of breath. Patient denies nausea vomiting or diarrhea. Patient denies any urinary burning or frequency. Patient 's fentenyl patch DC'd. Abilify added On 10/25/2018 patient is alert and oriented. Patient remains with poor appetite. Patient has been started on Megace and Abilify. Febrile patch DC'd. Patient remains on heparin drip for DVT. Color improving to bilateral feet. White blood cell remains elevated at 18.4. Infectious disease is following. Patient remains on Rocephin and Diflucan. At this time patient denies chest pain or shortness of breath. Patient denies nausea vomiting or diarrhea. Patient denies any urinary burning or frequency On 10/26/2018 patient remains alert and oriented. Patient having poor appetite per . Patient's Zoloft increased yesterday. Per infectious disease Flagyl has been added. Sodium is improving to 141 fluids have been changed. White blood cell is continuing to trend down to 14.2. Encourage patient to increase fluid consumption along with working with physical therapy due to increased weakness. At this time patient denies chest pain or shortness breath. Patient denies nausea vomiting or diarrhea. Patient denies any urinary burning or frequency. Patient is on heparin drip for DVT. Spoke with case management evaluation for oral anticoagulation with xarelato vs eliquis On 10/27/2018 patient is alert, confused in no apparent distress, she is still having very poor oral intake, otherwise there is no complaints she denies any pain at this time there is no fever or chills no headache or dizziness no chest pain no shortness of breath no cough no nausea or vomiting no abdominal pain no diarrhea and no urinary symptoms. On 10/28/2018 patient was seen and examined on the medical floor she is alert, slightly confused in no apparent distress, she still has minimal oral intake, there is no fever or chills no headache or dizziness no chest pain no shortness of breath no cough no nausea or vomiting no abdominal pain no diarrhea and no urinary symptoms, white blood count has increased since yesterday. Patient is complaining of abdominal pain with check abdomen ultrasound. On 10/29/2018 patient remains slightly confused but alert. is at bedside. Per patient's wishing patient to be a no code per legal wishes patient previously had completed. At this time patient remains with a poor appetite. Patient's potassium also elevated at 5.6. We'll stop fluid with KCl and potassium supplement. Kayexalate given and repeat potassium ordered for 2 PM at this time patient denies chest pain or shortness of breath. Patient's heart rate charted in chart in the 40s throughout night discussed with nursing staff and telemetry. Is was wrong documentation per nursing staff. Patient was sinus rhythm in the 70s and 80s throughout night no episodes of bradycardia noted. She denies nausea vomiting or diarrhea. Patient denies urinary burning or frequency. Objective - Vital Signs Vital signs: Vital Signs Temp 96.4 F L 10/29/18 12:00 Pulse 72 10/29/18 12:00 Resp 18 10/29/18 12:00 BP 130/46 10/29/18 12:00 Pulse Ox 97 10/29/18 12:00 Intake & Output 10/28/18 10/29/18 10/29/18 18:59 06:59 18:59 Intake Total 780.085 220.64 Output Total 0 0 0 Balance 780.085 0 220.64 Weight 38.9 kg Intake: IV 162.64 Heparin Sod,Pork in 0.45% 62.64 NaCl 25,000 unit In 0.45 % NaCl 1 250ml.bag @ 18 UNITS/KG/HR 7.83 mls/hr IV .Q24H [facility] Rx#: [id number] 1 gm In 100 Sodium Chloride 0.9% 50 ml @ 100 mls/hr IVPB Q24H [facility] Rx#:[id number] Intake, IV Titration 602.445 220.64 Amount 0.45% NaCl with KCl 20 600 Meq/l 1,000 ml @ 75 mls/ hr IV .[id number] [facility] Rx#: [id number] Heparin Sod,Pork in 0.45% 2.445 220.64 NaCl 25,000 unit In 0.45 % NaCl 1 250ml.bag @ 18 UNITS/KG/HR 7.83 mls/hr IV .Q24H [facility] Rx#: [id number] Oral 15 0 Output: Stool 0 0 0 Other: Voiding Method Diaper Diaper Diaper Incontinent Incontinent Incontinent # Voids 1 # Bowel Movements 1 - Exam In general patient is alert and oriented 3 in no apparent distress HEENT head normocephalic and atraumatic Neck is supple no JVD no goiter no lymphadenopathy Chest exam reveals a few scattered crackles bilaterally no wheezing Cardiac exam reveals regular heart sounds S1 and S2 no gallops no murmurs Abdomen is soft nontender no organomegaly with normal bowel sounds Extremity exam reveals no edema no cyanosis or clubbing Sacral area reveals a large area of erythema with multiple small ulcerations Neurological examination reveals no gross focal deficit - Labs CBC & Chem 7: 10/29/18 05:43 10/29/18 05:43 Labs: Abnormal Lab Results - Last 24 Hours (Table) 10/29/18 10/29/18 10/29/18 Range/Units 05:43 05:43 05:43 WBC 16.0 H (3.8-10.6) k/uL MCHC 29.3 L (31.0-37.0) g/dL Neutrophils # 12.5 H (1.3-7.7) k/uL APTT 63.8 H (22.0-30.0) sec Potassium 5.6 H (3.5-5.1) mmol/L Chloride 121 H (98-107) mmol/L Carbon Dioxide 10 L (22-30) mmol/L Creatinine 1.48 H (0.52-1.04) mg/dL Glucose 72 L (74-99) mg/dL Albumin 2.8 L (3.5-5.0) g/dL Assessment and Plan Assessment: #1 urinary tract infection . She remains on Rocephin for IV antibiotics. Infectious disease is following. Urine culture showing E. coli and Klebsiella pneumonia. Rocephin was discontinued patient currently is on Flagyl and Diflucan per infectious disease, #2 sepsis. Urine culture showing E. coli and Klebsiella pneumonia infectious disease following. however white blood count is increasing today Will recheck chest x-ray. Repeat chest x-ray completed showing patchy opacity more pronounced in the right upper lobe could represent developing infiltrate pneumonia here, some additional increasing patchy of posterior basilar atelectasis or developing infiltrate. Discussed with infectious disease. Patient's Rocephin DC'd and switched to Zosyn #3 acute kidney injury most likely related to prerenal azotemia. We'll continue to monitor #4 dehydration, with poor oral intake #5 recent vertebral fracture with physical debility #6 remote history of colon cancer with partial colectomy #7 chronic diarrhea #8 evidence of depression patient was recently started on Zoloft 50 mg by mouth daily #9 hypothyroidism TSH is low will decrease Synthroid dose from 175 g daily to 150 g daily #10 DVT to right lower extremity. Venous Doppler completed showing positive for DVT in the proximal femoral vein; internal echoes visualizing compression deferred. Patient started on heparin drip. Dr. Ga consulted for vascular surgery. Case management consulted for evaluation of oral anticoagulation eliquis vs Xarelto #11. Hypernatremia sodium 152. Normal saline DC'd D5W at 75 added. Sodium improving 141. Fluids changed to half-normal saline with 20 of KCl #12. Hypokalemia. Potassium 2.9. Will replace per protocol. Potassium has improved to 4.3 #13 excoriation to sacral area. Infectious disease is following. Flagyl has been added per ID #14. Hyperkalemia. Potassium 5.6. Fluids with KCl DC'd. Potassium supplement DC'd. Kayexalate given repeat potassium level ordered for 2 PM Abdominal ultrasound completed showing mild perisplenic ascites. In retrospect this was also present on CT of 10/24/2018 no definitive additional sonographic abnormality of the abdomen seen Patient was evaluated by psychiatry services. 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 Patient was started on Remeron 15 mg at night in the zoloft discontinued DVT prophylaxis heparin. GI prophylaxis Protonix I performed an examination of the patient and discussed their management with the Nurse Practitioner. I have reviewed the Nurse Practitioner's notes and agree with the documented findings and plan of care
[2018-10-29] MEDS ORDERED: PIPERACILLIN-TAZOBACTAM 3.375 GM in SODIUM CHLORIDE 0.9% 100 ML IVPB SCH (16:00)
[2018-10-29] MEDS: PIPERACILLIN-TAZOBACTAM 3.375 GM in SODIUM CHLORIDE 0.9% 100 ML IVPB SCH (17:57)
--- NOTE | 2018-10-29 20:42 | PN ---
PROGRESS NOTE DATE OF SERVICE: 10/29/2018 REASON FOR FOLLOWUP: 1. UTI. 2. Possible pneumonia. INTERVAL HISTORY: The patient is currently afebrile. The patient's oral intake remains poor. She hardly eats anything, per her , but no choking on the food has been noted. No nausea, vomiting or worsening diarrhea. PHYSICAL EXAMINATION: Her blood pressure is 120/55 with a pulse of 65, temperature 96.7. She is 97% on room air. General description is an elderly female lying in bed in no distress. RESPIRATORY SYSTEM: Unlabored breathing with decreased breath sounds at the base. No wheeze. HEART: S1, S2. Regular rate and rhythm. ABDOMEN: Soft. No tenderness. EXTREMITIES: No edema of the feet. LABS: Hemoglobin is 12.8 with a white count of 16,000, BUN of 14, creatinine 1.48. Chest x-ray with right upper lobe pneumonia. DIAGNOSTIC IMPRESSION AND PLAN: Patient admitted to hospital with mental status changes with a diagnosis of dehydration and urinary tract infection, now with developing of right upper lobe pneumonia with concern for possible aspiration etiology. At this time patient's antibiotic will be adjusted to Zosyn, monitoring her clinical course closely. Continue with supportive care. MMODL / IJN: [id number] /
[2018-10-30 06:30] LABS: Basophils # (A) 0.1 k/uL (0-0.2); Basophils % (A) 1 %; Eosinophils # (A) 0.1 k/uL (0-0.7); Eosinophils % (A) 1 %; HCT 38.3 % (34.0-46.0); HGB 11.7 gm/dL (11.4-16.0); Hypochromasia Marked; Lymphocytes # (A) 1.8 k/uL (1.0-4.8); Lymphocytes % (A) 18 %; MCH 29.6 pg (25.0-35.0); MCHC 30.6 g/dL (31.0-37.0); MCV 96.7 fL (80.0-100.0); Monocytes # (A) 0.3 k/uL (0-1.0); Monocytes % (A) 3 %; Neutrophils # (A) 7.8 k/uL (1.3-7.7); Neutrophils % (A) 77 %; Platelet Count 383 k/uL (150-450); RBC 3.96 m/uL (3.80-5.40); RDW 15.4 % (11.5-15.5); WBC 10.2 k/uL (3.8-10.6)
[2018-10-30 06:53] LABS: Albumin 2.4 g/dL (3.5-5.0); Calcium 8.7 mg/dL (8.4-10.2); Magnesium 1.9 mg/dL (1.6-2.3); Total Bilirubin 0.3 mg/dL (0.2-1.3)
[2018-10-30] MEDS: metroNIDAZOLE 500 MG TAB PO SCH ×4 (07:00→21:58)
[2018-10-30] MEDS: MIRTAZAPINE 15 MG TAB PO SCH ×2 (07:00→21:58)
[2018-10-30] MEDS: LEVOTHYROXINE 50 MCG TAB PO SCH (07:01)
[2018-10-30] MEDS: PANTOPRAZOLE 40 MG TABLET PO SCH (07:02)
[2018-10-30 07:05] LABS: Potassium 4.4 mmol/L (3.5-5.1)
[2018-10-30] MEDS: CHOLESTYRAMINE (WITH SUGAR) 4 GM PACKET PO SCH ×2 (07:52→16:36)
[2018-10-30] MEDS: ARIPiprazole 2 MG TAB PO SCH (07:55)
[2018-10-30] MEDS: PIPERACILLIN-TAZOBACTAM 3.375 GM in SODIUM CHLORIDE 0.9% 100 ML IVPB SCH ×2 (07:56→18:22)
[2018-10-30] MEDS: MEGESTROL 400 MG/10 ML CUP PO SCH (07:56)
--- NOTE | 2018-10-30 08:49 | P.PN ---
Progress Note - Text Progress Note Date: 10/29/18 Family meeting held with patient's daughter and DPOA along with son-in-law and patient's . Hospice versus potential PEG tube placement for feeding was discussed. All questions were answered. Family would like to take the next 24 hours to discuss with patient and among themselves prior to making a decision.
[2018-10-30] MEDS: traMADol 50 MG TAB PO PRN (09:30)
[2018-10-30] MEDS: HEPARIN SOD,PORK IN 0.45% NACL 25,000 UNIT in 0.45% NACL 1 250ML.BAG IV SCH (11:11)
--- NOTE | 2018-10-30 12:09 | P.PN ---
Subjective Progress Note Date: 10/30/18 Nayana Wagner is an 87-year-old female who presented to [facility] emergency room due to severe weakness poor oral intake and evidence of dehydration. She was evaluated in the emergency room and had evidence of urinary tract infection with sepsis evidence of dehydration with acute renal failure due to prerenal azotemia, patient was having very poor oral intake. She also had a larger area of excoriation in the sacral area she was started on IV fluid IV antibiotic and was admitted to telemetry floor for further evaluation. In the emergency room patient had elevated troponin level, cardiology consultation was requested in that regard. Patient was recently admitted to [facility] due to vertebral fracture with physical debility subsequently [facility] she was discharged home about 2 weeks ago and her condition continued to decline since then she was having very minimal oral intake with evidence of dehydration. Patient has known history of colon cancer about 9 years ago treated with surgery , she has chronic diarrhea since then and is maintained on Lomotil 5 mg every 6 hours, she was still having episodes of diarrhea and has large area of excoriation in the sacral area. On 10/21/2018 patient is alert and oriented 3 in no apparent distress reports better oral intake patient denies any pain there is no fever or chills no headache or dizziness no chest pain no shortness of breath no cough no nausea or vomiting no abdominal pain no diarrhea and no urinary symptoms On 10/22/2018 patient is alert and oriented 3. Patient does have increased swelling to lower extremities. Venous Doppler has been ordered. Dietary consult placed for the dietary intake. Fluids made KVO due to increase fluid congestion upon auscultation. Chest x-ray ordered. This time patient denies any chest pain or shortness of breath. Patient denies nausea vomiting or diarrhea. Patient denies any urinary burning. white blood cell is improving. On 10/23/2018 patient positive for DVT in lower extremity. Patient currently on heparin. Dr. Ga following for vascular surgery. Patient dietary intake remains poor. white blood cell increasing to 16.0. Infectious disease is following. Patient denies nausea vomiting diarrhea. Patient denies chest pain or shortness breath. Patient denies urinary burning or frequency On 10/24/2018 patient is alert and oriented 3. Patient remains on heparin drip. Sodium and increasing to 152 normal saline DC'd and patient switched to D5W at 75. Computed tomography scan of the chest ordered per ID. At this time patient denies chest pain or shortness of breath. Patient denies nausea vomiting or diarrhea. Patient denies any urinary burning or frequency. Patient 's fentenyl patch DC'd. Abilify added On 10/25/2018 patient is alert and oriented. Patient remains with poor appetite. Patient has been started on Megace and Abilify. Febrile patch DC'd. Patient remains on heparin drip for DVT. Color improving to bilateral feet. White blood cell remains elevated at 18.4. Infectious disease is following. Patient remains on Rocephin and Diflucan. At this time patient denies chest pain or shortness of breath. Patient denies nausea vomiting or diarrhea. Patient denies any urinary burning or frequency On 10/26/2018 patient remains alert and oriented. Patient having poor appetite per . Patient's Zoloft increased yesterday. Per infectious disease Flagyl has been added. Sodium is improving to 141 fluids have been changed. White blood cell is continuing to trend down to 14.2. Encourage patient to increase fluid consumption along with working with physical therapy due to increased weakness. At this time patient denies chest pain or shortness breath. Patient denies nausea vomiting or diarrhea. Patient denies any urinary burning or frequency. Patient is on heparin drip for DVT. Spoke with case management evaluation for oral anticoagulation with xarelato vs eliquis On 10/27/2018 patient is alert, confused in no apparent distress, she is still having very poor oral intake, otherwise there is no complaints she denies any pain at this time there is no fever or chills no headache or dizziness no chest pain no shortness of breath no cough no nausea or vomiting no abdominal pain no diarrhea and no urinary symptoms. On 10/28/2018 patient was seen and examined on the medical floor she is alert, slightly confused in no apparent distress, she still has minimal oral intake, there is no fever or chills no headache or dizziness no chest pain no shortness of breath no cough no nausea or vomiting no abdominal pain no diarrhea and no urinary symptoms, white blood count has increased since yesterday. Patient is complaining of abdominal pain with check abdomen ultrasound. On 10/29/2018 patient remains slightly confused but alert. is at bedside. Per patient's wishing patient to be a no code per legal wishes patient previously had completed. At this time patient remains with a poor appetite. Patient's potassium also elevated at 5.6. We'll stop fluid with KCl and potassium supplement. Kayexalate given and repeat potassium ordered for 2 PM at this time patient denies chest pain or shortness of breath. Patient's heart rate charted in chart in the 40s throughout night discussed with nursing staff and telemetry. Is was wrong documentation per nursing staff. Patient was sinus rhythm in the 70s and 80s throughout night no episodes of bradycardia noted. She denies nausea vomiting or diarrhea. Patient denies urinary burning or frequency. On 10/30/2018 patient is currently resting comfortably in bed. is at bedside. Family meeting was held yesterday to discuss hospice. Decision have not been made by family. Potassium is improving today. Antibiotics were switched to Zosyn for possible aspiration pneumonia yesterday. WBC is trending down now. Dietary intake remains poor. At this time patient denies chest pain or shortness breath. Patient denies nausea vomiting or diarrhea. Patient denies any urinary burning or frequency. Objective - Vital Signs Vital signs: Vital Signs Temp 96.6 F L 10/30/18 08:00 Pulse 77 10/30/18 08:00 Resp 18 10/30/18 08:00 BP 141/61 10/30/18 08:00 Pulse Ox 100 10/30/18 08:00 Intake & Output 10/29/18 10/30/18 10/30/18 18:59 06:59 18:59 Intake Total 800.45 229.558 Output Total 0 2 0 Balance 800.45 -2 229.558 Weight 38.9 kg 40 kg Intake: IV 579.81 0.9 525 Heparin Sod,Pork in 0.45% 54.81 NaCl 25,000 unit In 0.45 % NaCl 1 250ml.bag @ 18 UNITS/KG/HR 7.83 mls/hr IV .Q24H [facility] Rx#: [id number] Intake, IV Titration 220.64 229.558 Amount Heparin Sod,Pork in 0.45% 220.64 229.558 NaCl 25,000 unit In 0.45 % NaCl 1 250ml.bag @ 18 UNITS/KG/HR 7.83 mls/hr IV .Q24H [facility] Rx#: [id number] Oral 0 Output: Urine 2 Stool 0 0 0 Other: Voiding Method Diaper Diaper Diaper Incontinent Incontinent Incontinent # Voids 1 - Exam In general patient is alert and oriented 3 in no apparent distress HEENT head normocephalic and atraumatic Neck is supple no JVD no goiter no lymphadenopathy Chest exam reveals a few scattered crackles bilaterally no wheezing Cardiac exam reveals regular heart sounds S1 and S2 no gallops no murmurs Abdomen is soft nontender no organomegaly with normal bowel sounds Extremity exam reveals no edema no cyanosis or clubbing Sacral area reveals a large area of erythema with multiple small ulcerations Neurological examination reveals no gross focal deficit - Labs CBC & Chem 7: 10/30/18 05:49 10/30/18 05:49 Labs: Abnormal Lab Results - Last 24 Hours (Table) 10/30/18 10/30/18 Range/Units 05:49 05:49 MCHC 30.6 L (31.0-37.0) g/dL Neutrophils # 7.8 H (1.3-7.7) k/uL Chloride 122 H (98-107) mmol/L Carbon Dioxide 12 L (22-30) mmol/L Creatinine 1.55 H (0.52-1.04) mg/dL Glucose 72 L (74-99) mg/dL AST 12 L (14-36) U/L Total Protein 6.0 L (6.3-8.2) g/dL Albumin 2.4 L (3.5-5.0) g/dL Assessment and Plan Assessment: #1 urinary tract infection . Infectious disease is following. Urine culture showing E. coli and Klebsiella pneumonia. #2 sepsis. Urine culture showing E. coli and Klebsiella pneumonia infectious disease following. however white blood count is increasing today. Will recheck chest x-ray. Repeat chest x-ray completed showing patchy opacity more pronounced in the right upper lobe could represent developing infiltrate pneumonia here, some additional increasing patchy of posterior basilar atelectasis or developing infiltrate. Discussed with infectious disease. Patient's Rocephin DC'd and switched to Zosyn #3 acute kidney injury most likely related to prerenal azotemia. We'll continue to monitor. Creatinine increasing to 1.55 #4 dehydration, with poor oral intake #5. Elevated troponins. Patient was evaluated by cardiology service is mild troponin elevation with no evidence of acute cardiac event #6. Pneumonia. Chest x-ray completed showing patchy opacity more pronounced in the right upper lobe could represent developing infiltrative pneumonia here. Patient's antibiotics has been switched to Zosyn discussed case ID. #[id number]. Failure to thrive. Megace 400 mg added. Patient also evaluated by psych. Patient started on Abilify 2 mg daily and Remeron #8 recent vertebral fracture with physical debility #9 remote history of colon cancer with partial colectomy #10 chronic diarrhea #11 mood disorder and early onset dementia. Patient was evaluated by EKG. Remeron 15 mg has been added. Patient also on Abilify 2 mg daily #12 hypothyroidism TSH is low will decrease Synthroid dose from 175 g daily to 150 g daily #13 DVT to right lower extremity. Venous Doppler completed showing positive for DVT in the proximal femoral vein; internal echoes visualizing compression deferred. Patient started on heparin drip. Dr. Ga consulted for vascular surgery. Case management consulted for evaluation of oral anticoagulation eliquis vs Xarelto. Awaiting family decision hospice versus continued treatment #14. Hypernatremia sodium 152. Normal saline DC'd D5W at 75 added. Sodium improving 141. Fluids changed to half-normal saline with 20 of KCl #15. Hypokalemia. Potassium 2.9. Will replace per protocol. Potassium has improved to 4.3 #16 excoriation to sacral area. Infectious disease is following. Flagyl has been added per ID #[id number]. Hyperkalemia. Potassium 5.6. Fluids with KCl DC'd. Potassium supplement DC'd. Kayexalate given repeat potassium level ordered for 2 PM. Repeat Potassium 4.4 Family meeting was held on 10/29/2018 to discuss hospice versus PEG tube placement. At this time family has not made a decision yet. DVT prophylaxis heparin. GI prophylaxis Protonix I performed an examination of the patient and discussed their management with the Nurse Practitioner. I have reviewed the Nurse Practitioner's notes and agree with the documented findings and plan of care
--- NOTE | 2018-10-30 14:18 | PN ---
PROGRESS NOTE DATE OF SERVICE: 10/30/2018 REASON FOR FOLLOWUP: Possible aspiration pneumonia. INTERVAL HISTORY: The patient is afebrile. She remains to be awake, alert. However, she refused to eat any of her food, her is present at bedside. No definite choking sensation has been noticed or any worsening diarrhea. She was unable to provide any history, though. PHYSICAL EXAMINATION: Blood pressure is 141/61 with a pulse of 79, temperature 96.6. She is 100% on room air. General description is an elderly female up in the bed in no distress. Respiratory system: Unlabored breathing clear to auscultation anteriorly heart S1, S2. Regular rate and rhythm no tenderness extremities are feet. LABS: Hemoglobin 11.7, white count 10.2 with a BUN of 13, creatinine 1.55. DIAGNOSTIC IMPRESSION AND PLAN: Patient with right upper lobe pneumonia concern likely for an aspiration process. The patient white count responded very well to the Zosyn will continue for now. Encourage to increase her oral intake. Continue supportive care. MMODL / IJN: [id number] /
[2018-10-31 03:00] LABS: Glucose,Whole Blood 83 mg/dL (75-99)
[2018-10-31] MEDS ORDERED: POTASSIUM CHLORIDE ER 20 MEQ TAB.ER PO SCH (03:00)
[2018-10-31] MEDS: PIPERACILLIN-TAZOBACTAM 3.375 GM in SODIUM CHLORIDE 0.9% 100 ML IVPB SCH ×2 (05:58→17:58)
[2018-10-31] MEDS: LEVOTHYROXINE 50 MCG TAB PO SCH (05:58)
[2018-10-31] MEDS: PANTOPRAZOLE 40 MG TABLET PO SCH (05:58)
[2018-10-31 06:57] LABS: Basophils % (A) 0 %; Eosinophils # (A) 0.1 k/uL (0-0.7); Eosinophils % (A) 1 %; HCT 36.9 % (34.0-46.0); HGB 11.3 gm/dL (11.4-16.0); Hypochromasia Marked; Lymphocytes # (A) 2.2 k/uL (1.0-4.8); Lymphocytes % (A) 23 %; MCH 30.3 pg (25.0-35.0); MCHC 30.6 g/dL (31.0-37.0); MCV 98.8 fL (80.0-100.0); Macrocytosis Slight; Mean Platelet Volume 7.4; Monocytes # (A) 0.4 k/uL (0-1.0); Monocytes % (A) 4 %; Neutrophils # (A) 6.8 k/uL (1.3-7.7); Neutrophils % (A) 71 %; Platelet Count 374 k/uL (150-450); RBC 3.73 m/uL (3.80-5.40); RDW 15.7 % (11.5-15.5); WBC 9.7 k/uL (3.8-10.6)
[2018-10-31 07:02] LABS: Albumin 2.3 g/dL (3.5-5.0); Calcium 8.5 mg/dL (8.4-10.2); Magnesium 1.7 mg/dL (1.6-2.3); Potassium 3.9 mmol/L (3.5-5.1); Total Bilirubin 0.4 mg/dL (0.2-1.3); Total Protein 5.7 g/dL (6.3-8.2)
[2018-10-31 08:12] LABS: Crenated RBC Present; Poikilocytosis (M) Present
[2018-10-31] MEDS: metroNIDAZOLE 500 MG TAB PO SCH (09:07)
[2018-10-31] MEDS: MEGESTROL 400 MG/10 ML CUP PO SCH (09:07)
[2018-10-31] MEDS: ARIPiprazole 2 MG TAB PO SCH (09:07)
[2018-10-31] MEDS: traMADol 50 MG TAB PO PRN ×2 (09:08→23:17)
[2018-10-31] MEDS: CHOLESTYRAMINE (WITH SUGAR) 4 GM PACKET PO SCH ×2 (10:42→17:52)
[2018-10-31] MEDS: MAGNESIUM SULFATE-D5W PMX 1 GM in DEXTROSE/WATER 1 100ML.BAG IVPB SCH ×2 (11:00→12:37)
--- NOTE | 2018-10-31 11:44 | PN ---
PROGRESS NOTE DATE OF SERVICE: 10/31/2018 REASON FOR FOLLOWUP: Possible aspiration pneumonia. INTERVAL HISTORY: The patient is afebrile. She seems a little bit more awake, alert today. She is breathing comfortably. Oral intake remains improved. No nausea, vomiting, which was 104 has been noticed. The nurse did mention the diarrhea has slowed down and slightly firming up. PHYSICAL EXAMINATION: Blood pressure is 140/63 with a pulse of 77, temperature 96.1. She is 99% on room air. General description is an elderly female, up in the chair in no distress. RESPIRATORY SYSTEM: Unlabored breathing, clear to auscultation anteriorly. HEART: S1, S2. Regular rate and rhythm. ABDOMEN: Soft, no tenderness. LABS: Hemoglobin is 11.1, white count of 9.7, BUN of 11, creatinine 1.71. DIAGNOSTIC IMPRESSION AND PLAN: 1. Patient with urinary tract infection, adequately treated. 2. Patient with right upper lobe pneumonia, likely aspiration etiology. Currently covered with Zosyn. Patient's present at bedside. Questions were answered. MMODL / IJN: [id number] /
[2018-10-31] MEDS: HEPARIN SOD,PORK IN 0.45% NACL 25,000 UNIT in 0.45% NACL 1 250ML.BAG IV SCH ×2 (12:32→22:37)
[2018-10-31] MEDS ORDERED: DEXTROSE 5% IN WATER 1,000 ML IV ONE (12:47)
--- NOTE | 2018-10-31 12:56 | P.PN ---
Subjective Progress Note Date: 10/31/18 Nayana Wagner is an 87-year-old female who presented to [facility] emergency room due to severe weakness poor oral intake and evidence of dehydration. She was evaluated in the emergency room and had evidence of urinary tract infection with sepsis evidence of dehydration with acute renal failure due to prerenal azotemia, patient was having very poor oral intake. She also had a larger area of excoriation in the sacral area she was started on IV fluid IV antibiotic and was admitted to telemetry floor for further evaluation. In the emergency room patient had elevated troponin level, cardiology consultation was requested in that regard. Patient was recently admitted to [facility] due to vertebral fracture with physical debility subsequently [facility] she was discharged home about 2 weeks ago and her condition continued to decline since then she was having very minimal oral intake with evidence of dehydration. Patient has known history of colon cancer about 9 years ago treated with surgery , she has chronic diarrhea since then and is maintained on Lomotil 5 mg every 6 hours, she was still having episodes of diarrhea and has large area of excoriation in the sacral area. On 10/21/2018 patient is alert and oriented 3 in no apparent distress reports better oral intake patient denies any pain there is no fever or chills no headache or dizziness no chest pain no shortness of breath no cough no nausea or vomiting no abdominal pain no diarrhea and no urinary symptoms On 10/22/2018 patient is alert and oriented 3. Patient does have increased swelling to lower extremities. Venous Doppler has been ordered. Dietary consult placed for the dietary intake. Fluids made KVO due to increase fluid congestion upon auscultation. Chest x-ray ordered. This time patient denies any chest pain or shortness of breath. Patient denies nausea vomiting or diarrhea. Patient denies any urinary burning. white blood cell is improving. On 10/23/2018 patient positive for DVT in lower extremity. Patient currently on heparin. Dr. Ga following for vascular surgery. Patient dietary intake remains poor. white blood cell increasing to 16.0. Infectious disease is following. Patient denies nausea vomiting diarrhea. Patient denies chest pain or shortness breath. Patient denies urinary burning or frequency On 10/24/2018 patient is alert and oriented 3. Patient remains on heparin drip. Sodium and increasing to 152 normal saline DC'd and patient switched to D5W at 75. Computed tomography scan of the chest ordered per ID. At this time patient denies chest pain or shortness of breath. Patient denies nausea vomiting or diarrhea. Patient denies any urinary burning or frequency. Patient 's fentenyl patch DC'd. Abilify added On 10/25/2018 patient is alert and oriented. Patient remains with poor appetite. Patient has been started on Megace and Abilify. Febrile patch DC'd. Patient remains on heparin drip for DVT. Color improving to bilateral feet. White blood cell remains elevated at 18.4. Infectious disease is following. Patient remains on Rocephin and Diflucan. At this time patient denies chest pain or shortness of breath. Patient denies nausea vomiting or diarrhea. Patient denies any urinary burning or frequency On 10/26/2018 patient remains alert and oriented. Patient having poor appetite per . Patient's Zoloft increased yesterday. Per infectious disease Flagyl has been added. Sodium is improving to 141 fluids have been changed. White blood cell is continuing to trend down to 14.2. Encourage patient to increase fluid consumption along with working with physical therapy due to increased weakness. At this time patient denies chest pain or shortness breath. Patient denies nausea vomiting or diarrhea. Patient denies any urinary burning or frequency. Patient is on heparin drip for DVT. Spoke with case management evaluation for oral anticoagulation with xarelato vs eliquis On 10/27/2018 patient is alert, confused in no apparent distress, she is still having very poor oral intake, otherwise there is no complaints she denies any pain at this time there is no fever or chills no headache or dizziness no chest pain no shortness of breath no cough no nausea or vomiting no abdominal pain no diarrhea and no urinary symptoms. On 10/28/2018 patient was seen and examined on the medical floor she is alert, slightly confused in no apparent distress, she still has minimal oral intake, there is no fever or chills no headache or dizziness no chest pain no shortness of breath no cough no nausea or vomiting no abdominal pain no diarrhea and no urinary symptoms, white blood count has increased since yesterday. Patient is complaining of abdominal pain with check abdomen ultrasound. On 10/29/2018 patient remains slightly confused but alert. is at bedside. Per patient's wishing patient to be a no code per legal wishes patient previously had completed. At this time patient remains with a poor appetite. Patient's potassium also elevated at 5.6. We'll stop fluid with KCl and potassium supplement. Kayexalate given and repeat potassium ordered for 2 PM at this time patient denies chest pain or shortness of breath. Patient's heart rate charted in chart in the 40s throughout night discussed with nursing staff and telemetry. Is was wrong documentation per nursing staff. Patient was sinus rhythm in the 70s and 80s throughout night no episodes of bradycardia noted. She denies nausea vomiting or diarrhea. Patient denies urinary burning or frequency. On 10/30/2018 patient is currently resting comfortably in bed. is at bedside. Family meeting was held yesterday to discuss hospice. Decision have not been made by family. Potassium is improving today. Antibiotics were switched to Zosyn for possible aspiration pneumonia yesterday. WBC is trending down now. Dietary intake remains poor. At this time patient denies chest pain or shortness breath. Patient denies nausea vomiting or diarrhea. Patient denies any urinary burning or frequency. On 10/31/2018 patient is currently sitting up in chair. at bedside. Creatinine increasing to 1.71. Patient still refusing to eat. Hospice decision to be made tomorrow per patient's DPOA and daughter. Patient remains on IV Zosyn for possible aspiration pneumonia. Objective - Vital Signs Vital signs: Vital Signs Temp 96.1 F L 10/31/18 08:20 Pulse 72 10/31/18 12:43 Resp 18 10/31/18 12:43 BP 156/67 10/31/18 12:43 Pulse Ox 96 10/31/18 12:43 Intake & Output 10/30/18 10/31/18 10/31/18 18:59 06:59 18:59 Intake Total 394.558 611.677 Output Total 0 2 Balance 394.558 609.677 Intake: IV 450 0.9 450 Intake, IV Titration 229.558 161.677 Amount Heparin Sod,Pork in 0.45% 229.558 161.677 NaCl 25,000 unit In 0.45 % NaCl 1 250ml.bag @ 18 UNITS/KG/HR 7.83 mls/hr IV .Q24H RHODA Rx#: [id number] Oral 165 Output: Stool 0 Urine/Stool Mix 2 Other: Voiding Method Diaper Diaper Diaper Incontinent Incontinent Incontinent # Voids 1 1 # Bowel Movements 1 - Exam In general patient is alert and oriented 3 in no apparent distress HEENT head normocephalic and atraumatic Neck is supple no JVD no goiter no lymphadenopathy Chest exam reveals a few scattered crackles bilaterally no wheezing Cardiac exam reveals regular heart sounds S1 and S2 no gallops no murmurs Abdomen is soft nontender no organomegaly with normal bowel sounds Extremity exam reveals no edema no cyanosis or clubbing Sacral area reveals a large area of erythema with multiple small ulcerations Neurological examination reveals no gross focal deficit - Labs CBC & Chem 7: 10/31/18 05:39 10/31/18 05:39 Labs: Abnormal Lab Results - Last 24 Hours (Table) 10/30/18 10/31/18 10/31/18 Range/Units 19:24 05:39 05:39 RBC 3.73 L (3.80-5.40) m/uL Hgb 11.3 L (11.4-16.0) gm/dL MCHC 30.6 L (31.0-37.0) g/dL RDW 15.7 H (11.5-15.5) % APTT 90.5 H (22.0-30.0) sec Sodium 147 H (137-145) mmol/L Chloride 127 H (98-107) mmol/L Carbon Dioxide 14 L (22-30) mmol/L Creatinine 1.71 H (0.52-1.04) mg/dL AST 11 L (14-36) U/L Total Protein 5.7 L (6.3-8.2) g/dL Albumin 2.3 L (3.5-5.0) g/dL 10/31/18 Range/Units 05:39 RBC (3.80-5.40) m/uL Hgb (11.4-16.0) gm/dL MCHC (31.0-37.0) g/dL RDW (11.5-15.5) % APTT 87.3 H (22.0-30.0) sec Sodium (137-145) mmol/L Chloride (98-107) mmol/L Carbon Dioxide (22-30) mmol/L Creatinine (0.52-1.04) mg/dL AST (14-36) U/L Total Protein (6.3-8.2) g/dL Albumin (3.5-5.0) g/dL Assessment and Plan Assessment: #1 urinary tract infection . Infectious disease is following. Urine culture showing E. coli and Klebsiella pneumonia. #2 sepsis. Urine culture showing E. coli and Klebsiella pneumonia infectious disease following. however white blood count is increasing today. Will recheck chest x-ray. Repeat chest x-ray completed showing patchy opacity more pronounced in the right upper lobe could represent developing infiltrate pneumonia here, some additional increasing patchy of posterior basilar atelectasis or developing infiltrate. Discussed with infectious disease. Patient's Rocephin DC'd and switched to Zosyn #3 acute kidney injury most likely related to prerenal azotemia. We'll continue to monitor. Creatinine increasing to 1.71 #4 dehydration, with poor oral intake #5. Elevated troponins. Patient was evaluated by cardiology service is mild troponin elevation with no evidence of acute cardiac event #6. Pneumonia. Chest x-ray completed showing patchy opacity more pronounced in the right upper lobe could represent developing infiltrative pneumonia here. Patient's antibiotics has been switched to Zosyn discussed case ID. #[id number]. Failure to thrive. Megace 400 mg added. Patient also evaluated by psych. Patient started on Abilify 2 mg daily and Remeron #8 recent vertebral fracture with physical debility #9 remote history of colon cancer with partial colectomy #10 chronic diarrhea #11 mood disorder and early onset dementia. Patient was evaluated by EKG. Remeron 15 mg has been added. Patient also on Abilify 2 mg daily #12 hypothyroidism TSH is low will decrease Synthroid dose from 175 g daily to 150 g daily #13 DVT to right lower extremity. Venous Doppler completed showing positive for DVT in the proximal femoral vein; internal echoes visualizing compression deferred. Patient started on heparin drip. Dr. Ga consulted for vascular surgery. Case management consulted for evaluation of oral anticoagulation eliquis vs Xarelto. Awaiting family decision hospice versus continued treatment #14. Hypernatremia sodium 152. Normal saline DC'd D5W at 75 added. Sodium improving 141. Fluids changed to half-normal saline with 20 of KCl #15. Hypokalemia. Potassium 2.9. Will replace per protocol. Potassium has improved to 4.3 #16 excoriation to sacral area. Infectious disease is following. Flagyl has been added per ID #17. Hyperkalemia. Potassium 5.6. Fluids with KCl DC'd. Potassium supplement DC'd. Kayexalate given repeat potassium level ordered for 2 PM. Repeat Potassium 4.4 #18 severe malnutrition Family meeting was held on 10/29/2018 to discuss hospice versus PEG tube placement. At this time family has not made a decision yet. DVT prophylaxis heparin. GI prophylaxis Protonix I performed an examination of the patient and discussed their management with the Nurse Practitioner. I have reviewed the Nurse Practitioner's notes and agree with the documented findings and plan of care
[2018-10-31] MEDS: MIRTAZAPINE 15 MG TAB PO SCH (19:53)
[2018-11-01 04:30] VITALS: RESP 20
[2018-11-01 06:07] LABS: Basophils # (A) 0.1 k/uL (0-0.2); Basophils % (A) 1 %; Eosinophils # (A) 0.2 k/uL (0-0.7); Eosinophils % (A) 2 %; HCT 36.1 % (34.0-46.0); HGB 10.9 gm/dL (11.4-16.0); Hypochromasia Marked; Lymphocytes # (A) 2.1 k/uL (1.0-4.8); Lymphocytes % (A) 25 %; MCH 29.3 pg (25.0-35.0); MCHC 30.2 g/dL (31.0-37.0); MCV 96.9 fL (80.0-100.0); Mean Platelet Volume 6.8; Monocytes # (A) 0.3 k/uL (0-1.0); Monocytes % (A) 4 %; Neutrophils # (A) 5.5 k/uL (1.3-7.7); Neutrophils % (A) 67 %; Platelet Count 367 k/uL (150-450); RBC 3.73 m/uL (3.80-5.40); RDW 15.6 % (11.5-15.5); WBC 8.2 k/uL (3.8-10.6)
[2018-11-01 06:28] LABS: Albumin 2.2 g/dL (3.5-5.0); Calcium 8.3 mg/dL (8.4-10.2); Magnesium 2.2 mg/dL (1.6-2.3); Total Bilirubin 0.3 mg/dL (0.2-1.3); Total Protein 5.4 g/dL (6.3-8.2)
[2018-11-01] MEDS: PIPERACILLIN-TAZOBACTAM 3.375 GM in SODIUM CHLORIDE 0.9% 100 ML IVPB SCH (06:54)
[2018-11-01] MEDS: PANTOPRAZOLE 40 MG TABLET PO SCH (06:54)
[2018-11-01] MEDS: LEVOTHYROXINE 50 MCG TAB PO SCH (06:54)
[2018-11-01] MEDS ORDERED: Potassium Replacement Protocol 1 EACH MISC MISCELLANE PRN (08:33)
[2018-11-01 10:10] VITALS: BMI 15.5
[2018-11-01] MEDS: MEGESTROL 400 MG/10 ML CUP PO SCH (10:10)
[2018-11-01] MEDS: ARIPiprazole 2 MG TAB PO SCH (10:10)
[2018-11-01] MEDS: POTASSIUM CHLORIDE ER 20 MEQ TAB.ER PO SCH ×2 (10:11→11:35)
[2018-11-01] MEDS ORDERED: ENOXAPARIN 40 MG/0.4 ML SYRINGE SQ SCH (10:22)
[2018-11-01] MEDS: CHOLESTYRAMINE (WITH SUGAR) 4 GM PACKET PO SCH ×2 (10:31→16:31)
[2018-11-01] MEDS: traMADol 50 MG TAB PO PRN (11:31)
[2018-11-01 12:14] VITALS: BP 156/91; PULSE 60; TEMP 94.3
--- NOTE | 2018-11-01 15:15 | P.DS ---
Providers Date of admission: 10/19/18 22:20 Expected date of discharge: 11/01/18 Attending physician: Susie Paulino Consults: 10/20/18 10:24 Consult Physician Routine Consulting Provider: Мария Lang Consult Reason/Comments: sepsis, UTI, sacral ulcers Do you want consulting provider notified?: Yes Consult Physician Routine Consulting Provider: Alma Camacho Consult Reason/Comments: elevated troponin Do you want consulting provider notified?: Yes 10/22/18 16:08 Consult Physician Routine Consulting Provider: Tray Ga Consult Reason/Comments: DVT, poor circulation Do you want consulting provider notified?: Yes 10/28/18 08:52 Consult Physician Routine Consulting Provider: John Da Silva Consult Reason/Comments: poor oral intake Do you want consulting provider notified?: Yes Primary care physician: Susie Paulino [facility] Course: Discharge diagnosis Terminal diagnosis: Severe malnutrition #1 urinary tract infection . Infectious disease is following. Urine culture showing E. coli and Klebsiella pneumonia. #2 sepsis. Urine culture showing E. coli and Klebsiella pneumonia infectious disease following. however white blood count is increasing today. Will recheck chest x-ray. Repeat chest x-ray completed showing patchy opacity more pronounced in the right upper lobe could represent developing infiltrate pneumonia here, some additional increasing patchy of posterior basilar atelectasis or developing infiltrate. Discussed with infectious disease. Patient's Rocephin DC'd and switched to Zosyn #3 acute kidney injury most likely related to prerenal azotemia. We'll continue to monitor. Creatinine increasing to 1.71 #4 dehydration, with poor oral intake #5. Elevated troponins. Patient was evaluated by cardiology service is mild troponin elevation with no evidence of acute cardiac event #6. Pneumonia. Chest x-ray completed showing patchy opacity more pronounced in the right upper lobe could represent developing infiltrative pneumonia here. Patient's antibiotics has been switched to Zosyn discussed case ID.Patient will be DC'd on Avelox 400 daily 7 days #7. Failure to thrive. Megace 400 mg added. Patient also evaluated by psych. Patient started on Abilify 2 mg daily and Remeron #8 recent vertebral fracture with physical debility #9 remote history of colon cancer with partial colectomy #10 chronic diarrhea #11 mood disorder and early onset dementia. Patient was evaluated by EKG. Remeron 15 mg has been added. Patient also on Abilify 2 mg daily #12 hypothyroidism TSH is low will decrease Synthroid dose from 175 g daily to 150 g daily #13 DVT to right lower extremity. Venous Doppler completed showing positive for DVT in the proximal femoral vein; internal echoes visualizing compression deferred. Patient started on heparin drip. Dr. Ga consulted for vascular surgery. Case management consulted for evaluation of oral anticoagulation eliquis vs Xarelto. Awaiting family decision hospice versus continued treatment #14. Hypernatremia sodium 152. Normal saline DC'd D5W at 75 added. Sodium improving 141. Fluids changed to half-normal saline with 20 of KCl #15. Hypokalemia. Potassium 2.9. Will replace per protocol. Potassium has improved to 4.3 #16 excoriation to sacral area. Infectious disease is following. Flagyl has been added per ID #17. Hyperkalemia. Potassium 5.6. Fluids with KCl DC'd. Potassium supplement DC'd. Kayexalate given repeat potassium level ordered for 2 PM. Repeat Potassium 4.4 #18 severe malnutrition Hospital course Nayana Wagner is an 87-year-old female who presented to [facility] emergency room due to severe weakness poor oral intake and evidence of dehydration. She was evaluated in the emergency room and had evidence of urinary tract infection with sepsis evidence of dehydration with acute renal failure due to prerenal azotemia, patient was having very poor oral intake. She also had a larger area of excoriation in the sacral area she was started on IV fluid IV antibiotic and was admitted to telemetry floor for further evaluation. In the emergency room patient had elevated troponin level, cardiology consultation was requested in that regard. Patient was recently admitted to [facility] due to vertebral fracture with physical debility subsequently she was transferred [place] a [place] [facility] she was discharged home about 2 weeks ago and her condition continued to decline since then she was having very minimal oral intake with evidence of dehydration. Patient has known history of colon cancer about 9 years ago treated with surgery , she has chronic diarrhea since then and is maintained on Lomotil 5 mg every 6 hours, she was still having episodes of diarrhea and has large area of excoriation in the sacral area. On 10/21/2018 patient is alert and oriented 3 in no apparent distress reports better oral intake patient denies any pain there is no fever or chills no headache or dizziness no chest pain no shortness of breath no cough no nausea or vomiting no abdominal pain no diarrhea and no urinary symptoms On 10/22/2018 patient is alert and oriented 3. Patient does have increased swelling to lower extremities. Venous Doppler has been ordered. Dietary consult placed for the dietary intake. Fluids made KVO due to increase fluid congestion upon auscultation. Chest x-ray ordered. This time patient denies any chest pain or shortness of breath. Patient denies nausea vomiting or diarrhea. Patient denies any urinary burning. white blood cell is improving. On 10/23/2018 patient positive for DVT in lower extremity. Patient currently on heparin. Dr. Ga following for vascular surgery. Patient dietary intake remains poor. white blood cell increasing to 16.0. Infectious disease is following. Patient denies nausea vomiting diarrhea. Patient denies chest pain or shortness breath. Patient denies urinary burning or frequency On 10/24/2018 patient is alert and oriented 3. Patient remains on heparin drip. Sodium and increasing to 152 normal saline DC'd and patient switched to D5W at 75. Computed tomography scan of the chest ordered per ID. At this time patient denies chest pain or shortness of breath. Patient denies nausea vomiting or diarrhea. Patient denies any urinary burning or frequency. Patient 's fentenyl patch DC'd. Abilify added On 10/25/2018 patient is alert and oriented. Patient remains with poor appetite. Patient has been started on Megace and Abilify. Febrile patch DC'd. Patient remains on heparin drip for DVT. Color improving to bilateral feet. White blood cell remains elevated at 18.4. Infectious disease is following. Patient remains on Rocephin and Diflucan. At this time patient denies chest pain or shortness of breath. Patient denies nausea vomiting or diarrhea. Patient denies any urinary burning or frequency On 10/26/2018 patient remains alert and oriented. Patient having poor appetite per . Patient's Zoloft increased yesterday. Per infectious disease Flagyl has been added. Sodium is improving to 141 fluids have been changed. White blood cell is continuing to trend down to 14.2. Encourage patient to increase fluid consumption along with working with physical therapy due to increased weakness. At this time patient denies chest pain or shortness breath. Patient denies nausea vomiting or diarrhea. Patient denies any urinary burning or frequency. Patient is on heparin drip for DVT. Spoke with case management evaluation for oral anticoagulation with xarelato vs eliquis On 10/27/2018 patient is alert, confused in no apparent distress, she is still having very poor oral intake, otherwise there is no complaints she denies any pain at this time there is no fever or chills no headache or dizziness no chest pain no shortness of breath no cough no nausea or vomiting no abdominal pain no diarrhea and no urinary symptoms. On 10/28/2018 patient was seen and examined on the medical floor she is alert, slightly confused in no apparent distress, she still has minimal oral intake, there is no fever or chills no headache or dizziness no chest pain no shortness of breath no cough no nausea or vomiting no abdominal pain no diarrhea and no urinary symptoms, white blood count has increased since yesterday. Patient is complaining of abdominal pain with check abdomen ultrasound. On 10/29/2018 patient remains slightly confused but alert. is at bedside. Per patient's wishing patient to be a no code per legal wishes patient previously had completed. At this time patient remains with a poor appetite. Patient's potassium also elevated at 5.6. We'll stop fluid with KCl and potassium supplement. Kayexalate given and repeat potassium ordered for 2 PM at this time patient denies chest pain or shortness of breath. Patient's heart rate charted in chart in the 40s throughout night discussed with nursing staff and telemetry. Is was wrong documentation per nursing staff. Patient was sinus rhythm in the 70s and 80s throughout night no episodes of bradycardia noted. She denies nausea vomiting or diarrhea. Patient denies urinary burning or frequency. On 10/30/2018 patient is currently resting comfortably in bed. is at bedside. Family meeting was held yesterday to discuss hospice. Decision have not been made by family. Potassium is improving today. Antibiotics were switched to Zosyn for possible aspiration pneumonia yesterday. WBC is trending down now. Dietary intake remains poor. At this time patient denies chest pain or shortness breath. Patient denies nausea vomiting or diarrhea. Patient denies any urinary burning or frequency. On 10/31/2018 patient is currently sitting up in chair. at bedside. Creatinine increasing to 1.71. Patient still refusing to eat. Hospice decision to be made tomorrow per patient's DPOA and daughter. Patient remains on IV Zosyn for possible aspiration pneumonia. On 11/01/2018 family has made the decision to move forward with [facility] hospice care. Patient planning to be discharged to hospice house in [place]. I performed an examination of the patient and discussed their management with the Nurse Practitioner. I have reviewed the Nurse Practitioner's notes and agree with the documented findings and plan of care Patient Condition at Discharge: Stable Plan - Discharge Summary Discharge Rx Participant: No New Discharge Prescriptions: No Action Levothyroxine Sodium [Synthroid] 175 mcg PO DAILY Ergocalciferol (Vitamin D2) [Vitamin D2] 50,000 unit PO Q7D Potassium Chloride ER [K-Dur 10] 10 meq PO DAILY tab.er.prt fentaNYL 25MCG/HR PATCH [Duragesic 25MCG/HR] 1 patch TRANSDERM Q72H traMADol HCl [Ultram] 50 mg PO DAILY PRN PRN Reason: Pain Discharge Medication List Ergocalciferol (Vitamin D2) [Vitamin D2] 50,000 unit PO Q7D 08/23/18 [History] Levothyroxine Sodium [Synthroid] 175 mcg PO DAILY 08/23/18 [History] Potassium Chloride ER [K-Dur 10] 10 meq PO DAILY tab.er.prt 08/30/18 [Rx] fentaNYL 25MCG/HR PATCH [Duragesic 25MCG/HR] 1 patch TRANSDERM Q72H 10/19/18 [ History] traMADol HCl [Ultram] 50 mg PO DAILY PRN 10/19/18 [History] Follow up Appointment(s)/Referral(s): Susie Paulino MD [Primary Care Provider] - 1-2 days Activity/Diet/Wound Care/Special Instructions: hospice
--- NOTE | 2018-11-01 20:57 | PN ---
PROGRESS NOTE DATE OF SERVICE: 11/01/2018 REASON FOR FOLLOWUP: Possible aspiration pneumonia. INTERVAL HISTORY: The patient is afebrile; has been breathing comfortably. She is slightly more awake, alert. Oral intake remains very poor. No nausea, vomiting or any choking on the food has been noticed or any worsening diarrhea. PHYSICAL EXAMINATION: Blood pressure 121/76, pulse of 94, temperature 98.6. She is 94% on room air. General description is an elderly female up in the bed in no distress. RESPIRATORY SYSTEM: Unlabored breathing with decreased breath sounds at the base. No wheeze. HEART: S1, S2. Regular rate and rhythm. ABDOMEN: Soft. No tenderness. LABS: Hemoglobin 10.9, white count 8.2, BUN of 9, creatinine 1.65. DIAGNOSTIC IMPRESSION AND PLAN: 1. Patient initially admitted to hospital with a urinary tract infection. Urine with Escherichia coli and Klebsiella that have been adequately treated. 2. Patient who did have right upper lobe pneumonia, questionable aspiration. The patient responded to the Zosyn. That will be transitioned to Avelox 400 daily for another 5-7 days to finish her course of therapy. Continue with supportive care. MMODL / IJN: [id number] /
[2018-11-02] MEDS ORDERED: LEVOTHYROXINE 75 MCG TAB PO SCH (06:30)
[2018-11-02] MEDS ORDERED: ENOXAPARIN 40 MG/0.4 ML SYRINGE SQ SCH (09:00)
== END 2018-11-01 18:19 | disposition hospice, inpatient (51) | DRG 871 ==
LOC: EC 18:28 → 3SCARD 22:20
PROVIDERS: ADMIT Internal Medicine; ATTEND Internal Medicine
DX: A41.9 Sepsis, unspecified organism (principal); E43 Unspecified severe protein-calorie malnutrition; J69.0 Pneumonitis due to inhalation of food and vomit; S32.509A Unspecified fracture of unspecified pubis, initial encounter for closed fracture; Z68.1 Body mass index [BMI] 19.9 or less, adult; E87.0 Hyperosmolality and hypernatremia; I82.411 Acute embolism and thrombosis of right femoral vein; N17.9 Acute kidney failure, unspecified; N39.0 Urinary tract infection, site not specified; R18.8 Other ascites; B96.1 Klebsiella pneumoniae [K. pneumoniae] as the cause of diseases classified elsewhere; B96.20 Unspecified Escherichia coli [E. coli] as the cause of diseases classified elsewhere; B96.4 Proteus (mirabilis) (morganii) as the cause of diseases classified elsewhere; E03.9 Hypothyroidism, unspecified; E86.0 Dehydration; E87.6 Hypokalemia; F03.90 Unspecified dementia, unspecified severity, without behavioral disturbance, psychotic disturbance, mood disturbance, and anxiety; J45.909 Unspecified asthma, uncomplicated; K21.9 Gastro-esophageal reflux disease without esophagitis; K52.9 Noninfective gastroenteritis and colitis, unspecified; L89.151 Pressure ulcer of sacral region, stage 1; N18.9 Chronic kidney disease, unspecified; R32 Unspecified urinary incontinence; R62.7 Adult failure to thrive; W19.XXXA Unspecified fall, initial encounter; Z51.5 Encounter for palliative care; Z79.01 Long term (current) use of anticoagulants; Z79.890 Hormone replacement therapy; Z79.899 Other long term (current) drug therapy; Z83.3 Family history of diabetes mellitus; Z85.038 Personal history of other malignant neoplasm of large intestine; Z85.828 Personal history of other malignant neoplasm of skin; Z87.440 Personal history of urinary (tract) infections; Z90.49 Acquired absence of other specified parts of digestive tract; Z90.710 Acquired absence of both cervix and uterus; Z91.81 History of falling; R74.8 Abnormal levels of other serum enzymes; R15.9 Full incontinence of feces; Z53.9 Procedure and treatment not carried out, unspecified reason
CPT/HCPCS: 36415; 51701; 71046; 71250; 74018; 76700; 80053; 81001; 82272; 82550; 82553; 83605; 83735; 84132; 84443; 84484; 85025; 85610; 85730; 87045; 87046; 87077; 87086; 87186; 87324; 93005; 93970; 94760; 96361; 96365; 99285